=== PATIENT | male | born 1980 | race Caucasian/White ===

== ENCOUNTER 2017-12-17 18:46 | Inpatient (IN) | payer MEDICAID ==
[2017-12-17] VITALS (7 sets, daily range): BP systolic 68–141; BP diastolic 42–88; PULSE 80–102; RESP 14–19; TEMP 98.2; O2SAT 90–100
[~2017-12-17] VITALS: Ht 157.5 cm; Wt 68.0 kg
[~2017-12-17 18:46] MED LIST: CEPH500C3 PO; DEXAMETHASONE SOD PHOS 4 MG/ML VIAL IV ONE; KETOROLAC TROMETHAMINE 30 MG/ML (IVP) VIAL IV PUSH ONE; LACTATED RINGER'S 1000 ML INJ 1,000 ML IV ONE; LIDOCAINE HCL 1% PF 5 ML SYRINGE OTHER ONE; LORT7.5T3 PO; ONDANSETRON HCL 4 MG/2 ML VIAL IV ONE; PHENYLEPH/NS 1000 MCG/10 ML SYR IV ONE; PROPOFOL 200 MG/20 ML AMP IV ONE; SUCCINYLCHOLINE CHLORIDE 100 MG/5 ML SYRINGE IV PUSH ONE; TYLE3 PO; Z.0.NO CURRENT MEDS; hydrALAZINE HCL 20 MG/ML VIAL IV ONE
[2017-12-17] MEDS: TETANUS/DIPHTHERIA TOXOID ADULT 0.5 ML VIAL IM ONE (19:15)
[2017-12-17] MEDS: ceFAZolin 2 GM PREMIX 50 ML IV ONE (19:15)
[2017-12-17] MEDS ORDERED: HYDROmorphone HCL PF 2 MG/ML VIAL IV PUSH ONE (19:15)
--- NOTE | 2017-12-17 19:23 | PD ---
HPI Chief Complaint: Trauma (Alert) Time Seen by Provider: 18:56 Travel History International Travel<30 days: No Contact w/Intl Traveler<30days: No History of Present Illness HPI The patient's 37 years old and arrives by private vehicle. He fell while walking across street. At that time he evidently broke his left ankle. He was found by passersby loaded into a truck and brought here. He reports severe pain in the left leg. The pain is constant and worse with any movement. He denies loss of consciousness. He reports drinking alcohol after the fall which happened about 1 hour prior to ER arrival. Additionally, pt complains of "I'm going to pass out. Here I go." PFSH Past Medical History Diminished Hearing: No Social History Alcohol Use: No Tobacco Use: Yes (1 PPD) Substance Use: No Allergies-Medications (Allergen,Severity, Reaction): Coded Allergies: No Known Allergies (Verified Allergy, Unknown, 05/15/08) Reported Meds & Prescriptions Reported Meds & Active Scripts Active Tylenol #3 (Acetaminophen/Codeine Phosphate) 300 Mg/30 Mg Tab 1 Tab PO Q6HPRN Lortab 7.5/500 (Acetaminophen/Hydrocodone Bitart) Tab 1 Tab PO Q6HPRN Keflex (Cephalexin Monohydrate) 500 Mg Cap 500 Mg PO QID Reported No Current Meds (Miscellaneous Medication) Misc Review of Systems Except as stated in HPI: all other systems reviewed are Neg General / Constitutional: No: Fever, Chills Physical Exam Narrative GENERAL: 37 yo M, moderate distress 2/2 pain and/or anxiety, EtOH on breath HR 60-70, BP 65/40 SKIN: Warm and dry. Anterior lower leg laceration approx 5cm horizontal/linear. HEAD: Atraumatic. Normocephalic. EYES: Pupils equal and round. No scleral icterus. No injection or drainage. ENT: No nasal bleeding or discharge. Mucous membranes pink and moist. NECK: Trachea midline. No JVD. CARDIOVASCULAR: Heart rate about 80. Regular rhythm. RESPIRATORY: The lungs are clear. No dyspnea or tachypnea. GASTROINTESTINAL: Abdomen is soft. There is no focus of tenderness. There is no external evidence of trauma. MUSCULOSKELETAL: . Anterior lower leg laceration approx 5cm horizontal/linear consistent with open tib-fib fracture. There is some posterior angulation of the ankle and foot. 2+ dorsalis pedis. Patient can wiggle toes on the left side. Bilateral upper extremities normal. Right lower extremity normal. NEUROLOGICAL: Awake and alert. No obvious cranial nerve deficits. Motor grossly within normal limits. Five out of 5 muscle strength in the arms and legs. Normal speech. PSYCHIATRIC: Appropriate mood and affect; insight and judgment normal. Data Data Orders Orders Type And Screen (12/17/17 18:58) Hydromorphone Pf Inj (Dilaudid Pf Inj) (12/17/17 19:15) Cefazolin 2 Gm Premix (Ancef 2 Gm Premix (12/17/17 19:15) Tetanus/Diphtheria Tox Adult (Tetanus/Di (12/17/17 19:15) MDM Medical Decision Making Medical Screen Exam Complete: Yes Emergency Medical Condition: Yes Medical Record Reviewed: Yes Differential Diagnosis ICH, skull/skull base fx, c-spine fx, facial bone fracture, MARCE, PTX, aorta injury, diaphragm rupture, pelvis fracture, intraperitoneal hemorrhage, solid organ injury, retroperitoneal hemorrhage, long bone fracture, open fracture Narrative Course 29-year-old male arrives with an open tib-fib fracture left side hypotension 67/ 40. The heart rate at that time was about 70. The patient received a liter of normal saline. One unit emergency release PRBCs hung. The left lower extremity gross deformity was immobilized with a Quispe splint. Blood pressure gradually improved to about 120/80 in the ER. The pulse increased to the 90s. The patient received 0.5 mg hydromorphone, Ancef and tetanus. Discussed with trauma surgeons Dr Garrido and Chris. Case d/w Dr Oliver. The patient will go to the main site as a trauma alert for further diagnostic and therapeutic intervention there. He is hemodynamically stable at time of transfer from here with a blood pressure 120/80 with a HR 82. FAST exam revealed no obvious intraperitoneal blood. Diagnosis Primary Impression: Fall Qualified Codes: W19.XXXA - Unspecified fall, initial encounter Additional Impressions: Hypotension Qualified Codes: I95.9 - Hypotension, unspecified Fracture of tibia with fibula, left, open Qualified Codes: S82.202C - Unspecified fracture of shaft of left tibia, initial encounter for open fracture type IIIA, IIIB, or IIIC; S82.402C - Unspecified fracture of shaft of left fibula, initial encounter for open fracture type IIIA, IIIB, or IIIC Ryder Gan MD Dec 17, 2017 19:23
[2017-12-17] MEDS ORDERED: SODIUM CHLOR 0.9% 1000 ML INJ 1,000 ML IV SCH (19:26)
[2017-12-17] MEDS ORDERED: SODIUM CHLORIDE 0.9% FLUSH 10 ML FLUSH IVF PRN (19:30)
[2017-12-17 19:32] LABS: BASOPHIL # 0.1 TH/MM3 (0-0.2); EOSINOPHIL # 0.8 TH/MM3 (0-0.4); EOSINOPHIL % 5.6 % (0.0-4.0); HEMATOCRIT 45.9 % (39.0-51.0); HEMOGLOBIN 15.6 GM/DL (13.0-17.0); LYMPH % 38.6 % (9.0-44.0); LYMPHOCYTE # 5.7 TH/MM3 (1.0-4.8); MEAN CELL VOLUME 94.3 FL (80.0-100.0); MEAN PLATELET VOLUME 7.7 FL (7.0-11.0); MONO % 7.8 % (0.0-8.0); MONOCYTE # 1.1 TH/MM3 (0-0.9); PLATELET COUNT 303 TH/MM3 (150-450); RED BLOOD COUNT 4.87 MIL/MM3 (4.50-5.90); RED CELL DISTRIBUTION WIDTH 11.7 % (11.6-17.2); WHITE BLOOD COUNT 14.7 TH/MM3 (4.0-11.0)
[2017-12-17 19:39] LABS: BICARBONATE 18.4 MEQ/L (21.0-32.0); CALCIUM 8.2 MG/DL (8.5-10.1)
[2017-12-17 19:41] LABS: INTERNATIONAL NORMALIZED RATIO 1.1 RATIO; PROTHROMBIN TIME - PATIENT 10.7 SEC (9.8-11.6)
[2017-12-17 19:43] LABS: CREATININE 1.2 MG/DL (0.60-1.30)
--- NOTE | 2017-12-17 20:02 | RADRPT ---
EXAM DATE/TIME: 12/17/2017 19:50 [facility] COMPARISON: No previous studies available for comparison. INDICATIONS : Trauma alert, fall. RADIATION DOSE: 56.35 CTDIvol (mGy) MEDICAL HISTORY : None SURGICAL HISTORY : Umbilical hernia repair. ENCOUNTER: Initial ACUITY: 1 day PAIN SCALE: 0/10 LOCATION: cranial TECHNIQUE: Multiple contiguous axial images were obtained of the head. Using automated exposure control and adj ustment of the mA and/or kV according to patient size, radiation dose was kept as low as reasonably a chievable to obtain optimal diagnostic quality images. DICOM format image data is available electro nically for review and comparison. FINDINGS: CEREBRUM: The ventricles are normal for age. No evidence of midline shift, mass lesion, hemorrhage or acute in farction. No extra-axial fluid collections are seen. POSTERIOR FOSSA: The cerebellum and brainstem are intact. The 4th ventricle is midline. The cerebellopontine angle i s unremarkable. EXTRACRANIAL: The visualized portion of the orbits is intact. There is mucosal thickening and partial opacification of the ethmoid air cells and maxillary sinuses and frontal sinus. SKULL: The calvaria is intact. No evidence of skull fracture. CONCLUSION: 1. No acute intracranial abnormalities. Paranasal sinus disease. Garo Foreman MD on December 17, 2017 at 19:57 Board Certified Radiologist. This report was verified electronically.
--- NOTE | 2017-12-17 20:04 | RADRPT ---
EXAM DATE/TIME: 12/17/2017 19:50 [facility] COMPARISON: No previous studies available for comparison. INDICATIONS : Trauma alert, fall. RADIATION DOSE: 21.96 CTDIvol (mGy) MEDICAL HISTORY : None SURGICAL HISTORY : None. ENCOUNTER: Initial ACUITY: 1 day PAIN SCORE: 0/10 LOCATION: facial TECHNIQUE: Volumetric scanning of the facial bones was performed. Using automated exposure control and adjustme nt of the mA and/or kV according to patient size, radiation dose was kept as low as reasonably achiev able to obtain optimal diagnostic quality images. DICOM format image data is available electronicall y for review and comparison. FINDINGS: ORBITS: The orbital and infraorbital osseous structures are intact. The retroconal structures have a normal configuration. No radiopaque foreign bodies are seen. NASAL BONE: The nasal bone and maxillary spine are intact ZYGOMATIC ARCHES: Symmetric without evidence of fracture. SINUSES: There is pansinus mucosal thickening and partial opacification of the maxillary sinuses and ethmoid a ir cells. NASAL CAVITY: The nasal septum is intact and midline. The lacrimal ducts are intact. SOFT TISSUES: No radiopaque foreign bodies seen. No soft-tissue swelling is seen. INTRACRANIAL: No intracranial air seen. CRIBIFORM PLATE: Grossly intact. CONCLUSION: 1. Pansinus mucosal thickening with partial opacification of the ethmoids and maxillary sinuses. Garo Foreman MD on December 17, 2017 at 19:59 Board Certified Radiologist. This report was verified electronically.
[2017-12-17] MEDS ORDERED: IOHEXOL 350 MG/ML 10 ML VIAL (for RAD DIAG) IVCONTRAST ONE (20:06)
--- NOTE | 2017-12-17 20:08 | RADRPT ---
EXAM DATE/TIME: 12/17/2017 19:50 [facility] COMPARISON: No previous studies available for comparison. INDICATIONS : Trauma alert, fall. RADIATION DOSE: 18.53 CTDIvol (mGy) MEDICAL HISTORY : None SURGICAL HISTORY : None. ENCOUNTER: Initial ACUITY: 1 day PAIN SCALE: 0/10 LOCATION: neck TECHNIQUE: Volumetric scanning of the cervical spine was performed. Multiplanar reconstructions in the sagittal, coronal and oblique axial planes were performed. Using automated exposure control and adjustment o f the mA and/or kV according to patient size, radiation dose was kept as low as reasonably achievable to obtain optimal diagnostic quality images. DICOM format image data is available electronically f or review and comparison. FINDINGS: VERTEBRAE: Normal vertebral body height. ALIGNMENT: No evidence of subluxation. C2-C3: The bony spinal canal is normal in size. No evidence of disc bulge or herniation. The neural forami na are bilaterally patent. C3-C4: The bony spinal canal is normal in size. No evidence of disc bulge or herniation. The neural forami na are bilaterally patent. C4-C5: The bony spinal canal is normal in size. No evidence of disc bulge or herniation. The neural forami na are bilaterally patent. C5-C6: The bony spinal canal is normal in size. No evidence of disc bulge or herniation. The neural forami na are bilaterally patent. C6-C7: The bony spinal canal is normal in size. No evidence of disc bulge or herniation. The neural forami na are bilaterally patent. C7-T1: The bony spinal canal is normal in size. No evidence of disc bulge or herniation. The neural forami na are bilaterally patent. CONCLUSION: Normal examination for a patient of this age. Garo Foreman MD on December 17, 2017 at 20:03 Board Certified Radiologist. This report was verified electronically.
--- NOTE | 2017-12-17 20:09 | RADRPT ---
EXAM DATE/TIME: 12/17/2017 19:38 [facility] COMPARISON: No previous studies available for comparison. INDICATIONS : Trauma alert. MEDICAL HISTORY : Unobtainable. SURGICAL HISTORY : Unobtainable. ENCOUNTER: Initial ACUITY: 1 day PAIN SCORE: Non-responsive. LOCATION: Left ankle FINDINGS: There is a severely comminuted fracture of the distal tibia and a distal fibular comminuted fracture. Fractures extend intra-articularly at the ankle joint. There is also mildly displaced posterior calc aneus fracture. There is no dislocation. CONCLUSION: 1. Common intra-articular mildly displaced fractures of the distal tibia and fibula without dislocati on. Mildly displaced fracture posterior calcaneus. Garo Foreman MD on December 17, 2017 at 20:06 Board Certified Radiologist. This report was verified electronically.
--- NOTE | 2017-12-17 20:10 | RADRPT ---
EXAM DATE/TIME: 12/17/2017 19:38 [facility] COMPARISON: No previous studies available for comparison. INDICATIONS : Trauma alert. MEDICAL HISTORY : Unobtainable. SURGICAL HISTORY : Unobtainable. ENCOUNTER: Initial ACUITY: 1 day PAIN SCORE: Non-responsive. LOCATION: pelvis FINDINGS: A single frontal view of the pelvis demonstrates no evidence of fracture. The bony pelvic ring is in tact. Bony mineralization is normal. The soft tissues are intact. CONCLUSION: Normal examination for a patient of this age. Garo Foreman MD on December 17, 2017 at 20:07 Board Certified Radiologist. This report was verified electronically.
--- NOTE | 2017-12-17 20:10 | RADRPT ---
EXAM DATE/TIME: 12/17/2017 19:38 [facility] COMPARISON: No previous studies available for comparison. INDICATIONS : Trauma alert. MEDICAL HISTORY : Unobtainable. SURGICAL HISTORY : Unobtainable. ENCOUNTER: Initial ACUITY: 1 day PAIN SCORE: Non-responsive. LOCATION: Bilateral chest FINDINGS: A single view of the chest demonstrates the lungs to be symmetrically aerated without evidence of mas s, infiltrate or effusion. The cardiomediastinal contours are unremarkable. Osseous structures are intact. CONCLUSION: No acute disease. Garo Foreman MD on December 17, 2017 at 20:08 Board Certified Radiologist. This report was verified electronically.
--- NOTE | 2017-12-17 20:22 | RADRPT ---
EXAM DATE/TIME: 12/17/2017 19:57 [facility] COMPARISON: No previous studies available for comparison. INDICATIONS : Trauma alert, fall. IV CONTRAST: 100 cc Omnipaque 350 (iohexol) IV ; Cumulative dose for multiple exams. RADIATION DOSE: 5.27 CTDIvol (mGy) ; Combined studies - Thorax/Abdomen/Pelvis MEDICAL HISTORY : None SURGICAL HISTORY : None. ENCOUNTER: Initial ACUITY: 1 day PAIN SCALE: 3/10 LOCATION: chest TECHNIQUE: Volumetric scanning of the chest was performed. Using automated exposure control and adjustment of t he mA and/or kV according to patient size, radiation dose was kept as low as reasonably achievable to obtain optimal diagnostic quality images. DICOM format image data is available electronically for review and comparison. Follow-up recommendations for detected pulmonary nodules are based at a minimum on nodule size and pa tient risk factors according to Fleischner Society Guidelines. FINDINGS: LUNGS: There is no consolidation or pneumothorax. Multiple tiny 3 mm or less nodules likely postinflammatory . PLEURA: There is no pleural thickening or pleural effusion. MEDIASTINUM: The heart and great vessels demonstrate no acute abnormality. There is no mediastinal or hilar lymph adenopathy. AXILLAE: Within normal limits. No lymphadenopathy. SKELETAL: Within normal limits for patient age. MISCELLANEOUS: The visualized upper abdominal organs demonstrate no acute abnormality. CONCLUSION: 1. Negative for acute traumatic injury within the thorax. Scattered post inflammatory changes in the lungs with several tiny sub-3 mm nodules. Garo Foreman MD on December 17, 2017 at 20:08 Board Certified Radiologist. This report was verified electronically.
--- NOTE | 2017-12-17 20:32 | RADRPT ---
EXAM DATE/TIME: 12/17/2017 19:57 [facility] COMPARISON: No previous studies available for comparison. INDICATIONS : Trauma alert, fall. IV CONTRAST: 100 cc Omnipaque 350 (iohexol) IV ; Cumulative dose for multiple exams. ORAL CONTRAST: No oral contrast ingested. RADIATION DOSE: 5.27 CTDIvol (mGy) ; Combined studies - Thorax/Abdomen/Pelvis MEDICAL HISTORY : None SURGICAL HISTORY : None. ENCOUNTER: Initial ACUITY: 1 day PAIN SCALE: 4/10 LOCATION: Abdomen. TECHNIQUE: Volumetric scanning of the abdomen and pelvis was performed. Using automated exposure control and ad justment of the mA and/or kV according to patient size, radiation dose was kept as low as reasonably achievable to obtain optimal diagnostic quality images. DICOM format image data is available electro nically for review and comparison. FINDINGS: LOWER LUNGS: Minimal dependent atelectasis in the lungs. LIVER: Homogeneous density without lesion. There is no dilation of the biliary tree. No calcified gallston es. SPLEEN: Normal size without lesion. PANCREAS: Within normal limits. KIDNEYS: Normal in size and shape. There is no mass, stone or hydronephrosis. ADRENAL GLANDS: Within normal limits. VASCULAR: There is no aortic aneurysm. BOWEL/MESENTERY: The stomach, small bowel, and colon demonstrate no acute abnormality. There is no free intraperitone al air or fluid. ABDOMINAL WALL: Within normal limits. RETROPERITONEUM: There is no lymphadenopathy. BLADDER: No wall thickening or mass. REPRODUCTIVE: Within normal limits. INGUINAL: There is no lymphadenopathy or hernia. MUSCULOSKELETAL: Within normal limits for patient age. CONCLUSION: Negative for acute traumatic injury within the abdomen and pelvis. Garo Foreman MD on December 17, 2017 at 20:25 Board Certified Radiologist. This report was verified electronically.
--- NOTE | 2017-12-17 20:40 | HHI.HP ---
[facility] Service Critical Care Medicine Primary Care Physician No Primary Care Physician Admission Diagnosis trauma open tib fib Diagnosis: Chief Complaint: Left leg pain Travel History International Travel<30 Days: No Contact w/Intl Traveler <30 Da: No Traveled to Known Affected Are: No History of Present Illness 37-year-old gentleman who states he fell approximately 5 feet onto his left leg. He was evaluated at an outside hospital and transferred emergently to [facility] for hypotension with a systolic of 60. He was intoxicated. Patient arrived normotensive and underwent full trauma workup. He was found to have an open left distal tibia/fibula fracture with an associated calcaneal fracture. No other injuries were identified Review of Systems Constitutional: DENIES: Diaphoretic episodes, Fatigue, Fever, Weight gain, Weight loss, Chills, Dizziness, Change in appetite, Night Sweats Endocrine: DENIES: Heat/cold intolerance, Polydipsia, Polyuria, Polyphagia Eyes: DENIES: Blurred vision, Diplopia, Eye inflammation, Eye pain, Vision loss , Photosensitivity, Double Vision Ears, nose, mouth, throat: DENIES: Tinnitus, Hearing loss, Vertigo, Nasal discharge, Oral lesions, Throat pain, Hoarseness, Ear Pain, Running Nose, Epistaxis, Sinus Pain, Toothache, Odynophagia Respiratory: DENIES: Apneas, Cough, Snoring, Wheezing, Hemoptysis, Sputum production, Shortness of breath Cardiovascular: DENIES: Chest pain, Palpitations, Syncope, Dyspnea on Exertion , PND, Lower Extremity Edema, Orthopnea, Claudication Gastrointestinal: DENIES: Abdominal pain, Black stools, Bloody stools, Constipation, Diarrhea, Nausea, Vomiting, Difficulty Swallowing, Anorexia Genitourinary: DENIES: Sexual dysfunction, Urinary frequency, Urinary incontinence, Urgency, Hematuria, Dysuria, Nocturia, Penile Discharge, Testicular Pain, Testicular Swelling Musculoskeletal: COMPLAINS OF: Joint pain (Left ankle) Integumentary: COMPLAINS OF: Rash (Abrasion to the left forearm) Hematologic/lymphatic: DENIES: Bruising, Lymphadenopathy Immunologic/allergic: DENIES: Eczema, Urticaria Neurologic: DENIES: Abnormal gait, Headache, Localized weakness, Paresthesias, Seizures, Speech Problems, Tremor, Poor Balance Psychiatric: DENIES: Anxiety, Confusion, Mood changes, Depression, Hallucinations, Agitation, Suicidal Ideation, Homicidal Ideation, Delusions Past Family Social History Allergies: Coded Allergies: No Known Allergies (Verified Allergy, Unknown, 05/15/08) Past Medical History Patient denies any significant past medical history Past Surgical History Patient denies any significant past surgical history Reported Medications None reported Family History Reviewed and not relevant Social History Patient does drink alcohol and smokes denies illegal drug use Physical Exam Vital Signs Vital Signs Date Time Temp Pulse Resp B/P (MAP) Pulse Ox O2 Delivery O2 Flow Rate FiO2 12/17/17 20:25 98 Nasal Cannula 2.00 12/17/17 20:25 16 98 Nasal Cannula 2.00 Physical Exam Alert and oriented no acute distress Head is atraumatic normocephalic pupils equal reactive to light extraocular movement intact sclera nonicteric conjunctiva pink Neck soft trachea midline no cervical tenderness to palpation Lungs clear to auscultation bilaterally, no crepitus to chest wall palpation Heart regular rate and rhythm Abdomen soft nontender nondistended Pelvis is stable and nontender, femoral pulses palpable bilaterally Left lower extremity has been splinted I am told there is an open fracture with good pulses, no clubbing cyanosis or edema and palpable right lower extremity pulses Mood and affect are appropriate Cranial nerves II through XII appear grossly intact there is no focal neurologic deficit Skin is edgar with superficial abrasions all along the dorsum of the left upper extremity Laboratory Laboratory Tests Test 12/17/17 18:55 White Blood Count 14.7 Red Blood Count 4.87 Hemoglobin 15.6 Hematocrit 45.9 Mean Corpuscular Volume 94.3 Mean Corpuscular Hemoglobin 32.0 Mean Corpuscular Hemoglobin Concent 34.0 Red Cell Distribution Width 11.7 Platelet Count 303 Mean Platelet Volume 7.7 Neutrophils (%) (Auto) 47.0 Lymphocytes (%) (Auto) 38.6 Monocytes (%) (Auto) 7.8 Eosinophils (%) (Auto) 5.6 Basophils (%) (Auto) 1.0 Neutrophils # (Auto) 7.0 Lymphocytes # (Auto) 5.7 Monocytes # (Auto) 1.1 Eosinophils # (Auto) 0.8 Basophils # (Auto) 0.1 CBC Comment DIFF FINAL Differential Comment Prothrombin Time 10.7 Prothromb Time International Ratio 1.1 Activated Partial Thromboplast Time 24.5 Blood Urea Nitrogen 7 Creatinine 1.20 Random Glucose 125 Calcium Level 8.2 Sodium Level 130 Potassium Level 3.2 Chloride Level 95 Carbon Dioxide Level 18.4 Anion Gap 17 Estimat Glomerular Filtration Rate 68 Ethyl Alcohol Level 181 Result Diagram: 12/17/175 12/17/171854 Imaging Last Impressions Pelvis X-Ray 12/17/171946 Signed Impressions: Service Date/Time: December 19:38 - CONCLUSION: Normal examination for a patient of this age. Garo Foreman MD Maxillofacial CT 12/17/171946 Signed Impressions: Service Date/Time: December 19:50 - CONCLUSION: 1. Pansinus mucosal thickening with partial opacification of the ethmoids and maxillary sinuses. Garo Foreman MD Head CT 12/17/171946 Signed Impressions: Service Date/Time: December 19:50 - CONCLUSION: 1. No acute intracranial abnormalities. Paranasal sinus disease. Garo Foreman MD Chest X-Ray 12/17/171946 Signed Impressions: Service Date/Time: December 19:38 - CONCLUSION: No acute disease. Garo Foreman MD Chest CT 12/17/171946 Signed Impressions: Service Date/Time: December 19:57 - CONCLUSION: 1. Negative for acute traumatic injury within the thorax. Scattered post inflammatory changes in the lungs with several tiny sub-3 mm nodules. Garo Foreman MD Cervical Spine CT 12/17/171946 Signed Impressions: Service Date/Time: December 19:50 - CONCLUSION: Normal examination for a patient of this age. Garo Foreman MD Ankle X-Ray 12/17/17 0000 Signed Impressions: Service Date/Time: December 19:38 - CONCLUSION: 1. Common intra-articular mildly displaced fractures of the distal tibia and fibula without dislocation. Mildly displaced fracture posterior calcaneus. Garo Foreman MD Caprini VTE Risk Assessment Caprini VTE Risk Assessment: Mod/High Risk (score >= 2) Caprini Risk Assessment Model Point Value = 1 Point Value = 2 Point Value = 3 Point Value = 5 Age 41-60 Minor surgery BMI > 25 kg/m2 Swollen legs Varicose veins or History of unexplained or recurrent spontaneous Oral contraceptives or hormone replacement Sepsis (< 1 month) Serious lung disease, including pneumonia (< 1 month) Abnormal pulmonary function Acute myocardial infarction Congestive heart failure (< 1 month) History of inflammatory bowel disease Medical patient at bed rest Age 61-74 Arthroscopic surgery Major open surgery (> 45 min) Laparoscopic surgery (> 45 min) Malignancy Confined to bed (> 72 hours) Immobilizing plaster cast Central venous access Age >= 75 History of VTE Family history of VTE Factor V Leiden Prothrombin [id number] Lupus anticoagulant Anticardiolipin antibodies Elevated serum homocysteine Heparin-induced thrombocytopenia Other congenital or acquired thrombophilia Stroke (< 1 month) Elective arthroplasty Hip, pelvis, or leg fracture Acute spinal cord injury (< 1 month) Prophylaxis Regimen Total Risk Factor Score Risk Level Prophylaxis Regimen 0-1 Low Early ambulation 2 Moderate Order ONE of the following: *Sequential Compression Device (SCD) *Heparin 5000 units SQ BID 3-4 Higher Order ONE of the following medications: *Heparin 5000 units SQ TID *Enoxaparin/Lovenox 40 mg SQ daily (WT < 150 kg, CrCl > 30 mL/min) *Enoxaparin/Lovenox 30 mg SQ daily (WT < 150 kg, CrCl > 10-29 mL/min) *Enoxaparin/Lovenox 30 mg SQ BID (WT < 150 kg, CrCl > 30 mL/min) AND/OR *Sequential Compression Device (SCD) 5 or more Highest Order ONE of the following medications: *Heparin 5000 units SQ TID (Preferred with Epidurals) *Enoxaparin/Lovenox 40 mg SQ daily (WT < 150 kg, CrCl > 30 mL/min) *Enoxaparin/Lovenox 30 mg SQ daily (WT < 150 kg, CrCl > 10-29 mL/min) *Enoxaparin/Lovenox 30 mg SQ BID (WT < 150 kg, CrCl > 30 mL/min) AND *Sequential Compression Device (SCD) Assessment and Plan Assessment and Plan Open left ankle fracture, calcaneal fracture -Admit to trauma service for pain control and pulmonary toilet -Ancef and gent were given and will be scheduled for the open fracture -Orthopedic surgery was consulted to assist with fracture care Liborio Garrido MD Dec 17, 2017 20:40
[2017-12-17] MEDS ORDERED: CHLORHEXIDINE GLUCONATE 2 % 1 PACK (2 CLOTHS) TOP PRN (20:45)
[2017-12-17] MEDS ORDERED: GENTAMICIN 80 MG PREMIX 100 ML IV ONE (20:45)
[2017-12-17] MEDS ORDERED: MISCELLANEOUS NURSING INFORMATION XX SCH (20:45)
[2017-12-17] MEDS ORDERED: SODIUM CHLORIDE 0.9% FLUSH 10 ML FLUSH IV FLUSH PRN (20:45)
[2017-12-17] MEDS ORDERED: MAGNESIUM HYDROXIDE SUSP 30 ML CUP PO PRN ×2 (20:45→23:30)
[2017-12-17] MEDS ORDERED: ONDANSETRON HCL 4 MG/2 ML VIAL IV PUSH PRN (20:45)
[2017-12-17] MEDS: DOCUSATE SODIUM 100 MG CAP PO SCH (21:00)
[2017-12-17] MEDS ORDERED: LACTATED RINGER'S 1000 ML INJ 1,000 ML IV SCH (21:00)
[2017-12-17] MEDS ORDERED: GENTAMICIN 80 MG PREMIX 100 ML ONE (21:06)
[2017-12-17] MEDS ORDERED: MORPHINE SULFATE 2 MG/ML SYRINGE IV PRN (21:15)
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
[2017-12-17] MEDS ORDERED: ACETAMINOPHEN 1000 MG/100 ML 100 ML IV ONE (21:28)
[2017-12-17] MEDS ORDERED: MIDAZOLAM HCL 2 MG/2 ML VIAL ONE (21:28)
[2017-12-17] MEDS ORDERED: FAMOTIDINE 20 MG/2 ML VIAL ONE (21:28)
[2017-12-17] MEDS ORDERED: ceFAZolin INJ 1,000 MG VIAL ONE (21:29)
[2017-12-17] MEDS ORDERED: GENTAMICIN SULFATE 80 MG/2 ML VIAL ONE (21:29)
[2017-12-17] MEDS ORDERED: VANCOMYCIN HCL 1000 MG VIAL ONE (21:29)
[2017-12-17] MEDS ORDERED: ENOXAPARIN SODIUM 30 MG/0.3 ML SYRINGE SQ SCH (22:00)
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
[2017-12-17] MEDS ORDERED: Post-op Orders (for Pharmacy) XX ONE (23:30)
[2017-12-17] MEDS ORDERED: SENNOSIDES 8.6 MG TAB PO PRN (23:30)
[2017-12-17] MEDS ORDERED: oxyCODONE/ACETAMINOPHEN 5 MG/325 MG TAB PO PRN (23:30)
[2017-12-17] MEDS ORDERED: PROMETHAZINE HCL 25 MG TAB PO PRN (23:30)
[2017-12-17] MEDS ORDERED: MORPHINE SULFATE 8 MG/ML INJ IV PUSH PRN (23:30)
[2017-12-17] MEDS ORDERED: ZOLPIDEM TARTRATE 5 MG TAB PO PRN (23:30)
[2017-12-17] MEDS ORDERED: LACTULOSE SYRUP 20 GM/30 ML CUP PO PRN (23:30)
[2017-12-17] MEDS ORDERED: BISACODYL 10 MG SUPP RECTAL PRN (23:30)
[2017-12-17] MEDS ORDERED: DO NOT ADM ANY ANTICOAGULANT DRUGS PRN (23:45)
[2017-12-18 00:30] VITALS: BP 156/91; PULSE 93; RESP 17; TEMP 97.4; O2SAT 99
[2017-12-18] MEDS: oxyCODONE/ACETAMINOPHEN 5 MG/325 MG TAB PO PRN ×2 (01:39→05:33)
[2017-12-18] MEDS: KETOROLAC TROMETHAMINE 30 MG/ML (IVP) VIAL IVP SCH ×6 (01:39→23:30)
[2017-12-18] MEDS: VANCOMYCIN INJ 1,000 MG in SODIUM CHLOR 0.9% 250 ML INJ 250 ML IV SCH ×2 (01:42→16:21)
[2017-12-18] MEDS: MULTIVITAMIN INJ 10 ML, THIAMINE INJ 100 MG, FOLIC ACID INJ 1 MG in SODIUM CHLORID 0.9%... IV SCH (01:42)
[2017-12-18 03:53] LABS: ALBUMIN 3.7 GM/DL (3.4-5.0)
[2017-12-18 03:58] LABS: TOTAL BILIRUBIN ADULT 0.7 MG/DL (0.2-1.0); TOTAL PROTEIN 7.2 GM/DL (6.4-8.2)
[2017-12-18] MEDS: CHLORHEXIDINE GLUCONATE 2 % 1 PACK (2 CLOTHS) TOP SCH (04:00)
[2017-12-18 04:09] LABS: DIRECT BILIRUBIN ADULT 0.1 MG/DL (0.0-0.2); INDIRECT BILIRUBIN 0.6 MG/DL (0.0-0.8)
[2017-12-18 04:40] VITALS: BP 134/71; PULSE 90; RESP 17; TEMP 97.2; O2SAT 98
[2017-12-18] MEDS ORDERED: GENTAMICIN INJ 80 MG in SODIUM CHLORIDE 0.9% INJ 100 ML IV SCH (05:00)
[2017-12-18] MEDS ORDERED: GENTAMICIN SULFATE 80 MG/2 ML VIAL IM SCH (05:00)
[2017-12-18] MEDS ORDERED: oxyCODONE/ACETAMINOPHEN 10 MG/325 MG TAB PO PRN (06:00)
[2017-12-18 07:23] LABS: AUTOMATED NEUTROPHIL # 12.6 TH/MM3 (1.8-7.7); BASOPHIL % 0.3 % (0.0-2.0); HEMATOCRIT 42.7 % (39.0-51.0); HEMOGLOBIN 14.8 GM/DL (13.0-17.0); LYMPH % 5.3 % (9.0-44.0); LYMPHOCYTE # 0.7 TH/MM3 (1.0-4.8); MEAN CELL VOLUME 92.6 FL (80.0-100.0); MEAN CORPUSCULAR HEMOGLOBIN 32.1 PG (27.0-34.0); MEAN CORPUSCULAR HGB CONC 34.7 % (32.0-36.0); MEAN PLATELET VOLUME 8.1 FL (7.0-11.0); MONO % 3.2 % (0.0-8.0); MONOCYTE # 0.4 TH/MM3 (0-0.9); NEUT % 91.2 % (16.0-70.0); PLATELET COUNT 213 TH/MM3 (150-450); RED BLOOD COUNT 4.62 MIL/MM3 (4.50-5.90); RED CELL DISTRIBUTION WIDTH 13.7 % (11.6-17.2); WHITE BLOOD COUNT 13.8 TH/MM3 (4.0-11.0)
[2017-12-18 07:38] VITALS: BP 133/83; PULSE 83; RESP 18; TEMP 97.5; O2SAT 97
[2017-12-18 07:42] LABS: CALCIUM 7.7 MG/DL (8.5-10.1); CREATININE 0.97 MG/DL (0.60-1.30)
--- NOTE | 2017-12-18 08:08 | PD.ORT.PN ---
Subjective Subjective Remarks POD 1 s/p I&D with wound closure and exfix left distal tibia doing well. reports pain controlled. resting comfortably Objective Vitals Vital Signs Date Time Temp Pulse Resp B/P (MAP) Pulse Ox O2 Delivery O2 Flow Rate FiO2 12/18/17 07:38 97.5 83 18 133/83 (100) 97 12/18/17 04:40 97.2 90 17 134/71 (92) 98 12/18/17 00:30 97.4 93 17 156/91 (112) 99 12/18/17 00:14 92 18 136/92 (107) 97 Nasal Cannula 4 12/18/17 00:00 93 20 146/93 (110) 97 Nasal Cannula 4 12/17/17 23:45 98 16 139/92 (108) 94 Nasal Cannula 4 12/17/17 23:25 97.4 111 20 137/92 (107) 97 Nasal Cannula 4 12/17/17 21:31 12/17/17 21:00 88 19 141/88 (105) 98 Nasal Cannula 2.00 12/17/17 20:25 97 12.00 12/17/17 20:25 98 Nasal Cannula 2.00 12/17/17 20:25 97 Non-Rebreather 12.00 12/17/17 20:25 16 98 Nasal Cannula 2.00 12/17/17 19:37 100 2.00 12/17/17 19:15 80 16 123/79 (94) 12/17/17 19:10 124/88 (100) 12/17/17 19:05 102 16 89/66 (74) 99 Non-Rebreather 12/17/17 18:55 102 14 69/42 (51) 90 Room Air 12/17/17 18:55 98.2 101 14 68/52 (57) 90 I/O 12/17/17 12/17/17 12/17/17 12/18/17 12/18/17 12/18/17 07:00 15:00 23:00 07:00 15:00 23:00 Intake Total 1240 ml Output Total 2250 ml Balance -1010 ml Intake Oral 240 ml Other 1000 ml Output Urine Total 2200 ml Estimated Blood Loss 50 ml # Bowel Movements 0 Result Diagram: 12/18/17 0640 12/18/17 0640 Other Results Laboratory Tests Test 12/17/17 18:55 Prothromb Time International Ratio 1.1 RATIO Prothrombin Time 10.7 SEC (9.8-11.6) Imaging Last 24 hours Impressions Pelvis X-Ray 12/17/171946 Signed Impressions: Service Date/Time: December 19:38 - CONCLUSION: Normal examination for a patient of this age. Garo Foreman MD Maxillofacial CT 12/17/171946 Signed Impressions: Service Date/Time: December 19:50 - CONCLUSION: 1. Pansinus mucosal thickening with partial opacification of the ethmoids and maxillary sinuses. Garo Foreman MD Head CT 12/17/171946 Signed Impressions: Service Date/Time: December 19:50 - CONCLUSION: 1. No acute intracranial abnormalities. Paranasal sinus disease. Garo Foreman MD Chest X-Ray 12/17/171946 Signed Impressions: Service Date/Time: December 19:38 - CONCLUSION: No acute disease. Garo Foreman MD Chest CT 12/17/171946 Signed Impressions: Service Date/Time: December 19:57 - CONCLUSION: 1. Negative for acute traumatic injury within the thorax. Scattered post inflammatory changes in the lungs with several tiny sub-3 mm nodules. Garo Foreman MD Cervical Spine CT 12/17/171946 Signed Impressions: Service Date/Time: December 19:50 - CONCLUSION: Normal examination for a patient of this age. Garo Foreman MD Abdomen/Pelvis CT 12/17/171946 Signed Impressions: Service Date/Time: December 19:57 - CONCLUSION: Negative for acute traumatic injury within the abdomen and pelvis. Garo Foreman MD Objective Remarks LLE: +exfix. pin sites with bloody drainage. nvi. traumatic wound with bloody drainage. tibia in extension and fracture appears to be tinting skin anteriorly. Assessment & Plan Assessment and Plan 1) Open Left distal Tibia Fx s/p I&D and exfix - POD 1 -NWB -pin care BID -sign consents -npo -plan for revision of exfix today with Kamaljit Phelan/Marketing Senior Recruiter PA Dec 18, 2017 08:08
[2017-12-18] MEDS: DOCUSATE SODIUM 100 MG CAP PO SCH ×2 (09:00→21:00)
[2017-12-18] MEDS: FAMOTIDINE 20 MG TAB PO SCH ×2 (09:00→21:53)
[2017-12-18] MEDS: DOCUSATE SODIUM 50 MG/SENNA 8.6 MG TAB PO SCH ×2 (09:00→21:00)
[2017-12-18] MEDS: BACITRACIN TOP OINT 15 GM TUBE TOP SCH ×2 (09:00→21:00)
--- NOTE | 2017-12-18 10:27 | HHI.PR ---
Subjective Subjective Notes S/P ex-fix revision today Objective Vitals/I&O Vital Signs Date Time Temp Pulse Resp B/P (MAP) Pulse Ox O2 Delivery O2 Flow Rate FiO2 12/18/17 07:38 97.5 83 18 133/83 (100) 97 12/18/17 00:14 Nasal Cannula 4 Labs Laboratory Tests Test 12/17/17 18:55 12/17/17 21:30 12/18/17 06:40 White Blood Count 14.7 13.8 Red Blood Count 4.87 4.62 Hemoglobin 15.6 14.8 Hematocrit 45.9 42.7 Mean Corpuscular Volume 94.3 92.6 Mean Corpuscular Hemoglobin 32.0 32.1 Mean Corpuscular Hemoglobin Concent 34.0 34.7 Red Cell Distribution Width 11.7 13.7 Platelet Count 303 213 Mean Platelet Volume 7.7 8.1 Neutrophils (%) (Auto) 47.0 91.2 Lymphocytes (%) (Auto) 38.6 5.3 Monocytes (%) (Auto) 7.8 3.2 Eosinophils (%) (Auto) 5.6 0.0 Basophils (%) (Auto) 1.0 0.3 Neutrophils # (Auto) 7.0 12.6 Lymphocytes # (Auto) 5.7 0.7 Monocytes # (Auto) 1.1 0.4 Eosinophils # (Auto) 0.8 0.0 Basophils # (Auto) 0.1 0.0 CBC Comment DIFF FINAL DIFF FINAL Differential Comment Prothrombin Time 10.7 Prothromb Time International Ratio 1.1 Activated Partial Thromboplast Time 24.5 Blood Urea Nitrogen 7 8 Creatinine 1.20 0.97 Random Glucose 125 151 Total Protein 7.2 Albumin 3.7 Calcium Level 8.2 7.7 Alkaline Phosphatase 75 Aspartate Amino Transf (AST/SGOT) 60 Alanine Aminotransferase (ALT/SGPT) 79 Total Bilirubin 0.7 Direct Bilirubin 0.1 Sodium Level 130 139 Potassium Level 3.2 4.3 Chloride Level 95 106 Carbon Dioxide Level 18.4 25.0 Anion Gap 17 8 Estimat Glomerular Filtration Rate 68 87 Indirect Bilirubin 0.6 Total Creatine Kinase 158 Ethyl Alcohol Level 181 Lactic Acid Level 2.9 Narrative Exam GENERAL: 37-year-old well-nourished, well developed male lying in bed. SKIN: Warm and dry. LUE road rash. HEAD: Atraumatic. Normocephalic. EYES: Pupils equal and round. No scleral icterus. ENT: No nasal bleeding or discharge. Mucous membranes pink and moist. NECK: Trachea midline. No JVD. CARDIOVASCULAR: Regular rate and rhythm. RESPIRATORY: No accessory muscle use. Lungs clear to auscultation. Breath sounds equal bilaterally. GASTROINTESTINAL: Abdomen soft, non-tender, nondistended. + BS. MUSCULOSKELETAL: Extremities without cyanosis, +1 LLE edema. LLE ex- fix with TERRA wrap. MAEW, + perfused NEUROLOGICAL: Awake and alert. Normal speech. A/P Assessment and Plan [place]: Allegedly fell from 5 feet onto his left leg. ETOH= 181. Found down by a passerby and brought to the ER. Transferred for trauma services. INJURIES: Road rash Open LEFT tib/fib fx LEFT calcaneus fx PMHx: 1 PPD smoker, ETOH use 12/17: I&D, placement of external fixation left leg Road rash Supportive care Bacitracin BID Open LEFT tib/fib fx, LEFT calcaneus fx Orthopedics consulted 12/17: I&D, placement of external fixation left leg Ex-fix revision today Pain control Bowel regimen Pin care BID ABx per Orthopedics: Haylee NWB LLE Plan of care d/w patient at bedside/ Collaborating trauma M.D. agrees with plan. Case management consulted to assist with discharge planning. Attending Statement patient seen at bedside as above ortho revision otherwise doing well Attestation The exam, history, and the medical decision-making described in the above note were completed with the assistance of the mid-level provider. I reviewed and agree with the findings presented. I attest that I had a [id number] encounter with the patient on the same day, and personally performed and documented my assessment and findings in the medical record. Jose Guaman Dec 18, 2017 10:27 Montrell Mitchell MD Dec 23, 2017 14:58
[2017-12-18] MEDS ORDERED: SUCCINYLCHOLINE CHLORIDE 200 MG/10 ML VIAL IV ONE (12:00)
[2017-12-18] MEDS ORDERED: ENOXAPARIN SODIUM 30 MG/0.3 ML SYRINGE SQ SCH (12:00)
[2017-12-18] MEDS ORDERED: ONDANSETRON HCL 4 MG/2 ML VIAL IV PUSH ONE (12:00)
[2017-12-18] MEDS ORDERED: DEXAMETHASONE SOD PHOS 4 MG/ML VIAL IV ONE (12:00)
[2017-12-18] MEDS ORDERED: PROPOFOL 200 MG/20 ML AMP IV ONE (12:00)
[2017-12-18] MEDS ORDERED: ceFAZolin INJ 1,000 MG VIAL ONE (13:12)
--- NOTE | 2017-12-18 14:00 | PD.OP ---
cc: Torsten Keita MD Operative Report Date of Surgery: Dec 18, 2017 Preoperative Diagnosis: open left distal tibia and fibula fracture Postoperative Diagnosis: Procedure: Closed reduction and revision of external fixation Anesthesia: General Surgeon: Torsten Keita Client Experience Consultant(s): MULUGETA Bautista PA-C Operation and Findings: This patient sustained an injury resulting in open unstable fractures of the left distal tibia and fibula. Patient was initially taken to the operating room last night for irrigation debridement, closed reduction, and external fixation. Patient was seen and evaluated preoperatively and found to have too much swelling to proceed with open reduction internal fixation. Patient was noted to have tenting of the skin. There was a bone fragment causing pressure on the traumatic laceration. Risk and benefits of surgery were discussed in depth with patient and informed consent was confirmed. Surgical site was marked. Patient was brought to operating room and placed on the OR table. Patient was given IV sedation and GETA. Patient received IV antibiotics and timeout procedure was performed. Operative leg was prepped with alcohol followed by Hibiclens and draped in the usual sterile fashion.resulting in left tibia-fibula fractures. Timeout procedure was performed. Attention was turned towards revision of the external fixation. A small incision was made over the first and fifth metatarsal. A pin was placed into the first metatarsal and fifth metatarsal. Additional clamps and bars were attached to the existing fixation construct. At this point the external fixator was loosened. attention was turned to closed reduction of the fracture. Traction was applied. The fracture was manipulated under fluoroscopy. Improved reduction was achieved. Tension was taken off of the skin once reduction was obtained. With the fracture held in reduced position, the external fixator was tightened. Fluoroscopy confirmed a well-placed external fixation with well-aligned fractures. Sterile dressings were applied. The patient was awakened and transferred to Recovery in stable condition. The soft tissue was reevaluated. Patient did have swelling around the ankle and calf but compartments were soft and compressible with no signs of compartment syndrome. Torsten Keita MD Dec 18, 2017 14:00
[2017-12-18] MEDS ORDERED: DO NOT ADM ANY ANTICOAGULANT DRUGS PRN (14:03)
--- NOTE | 2017-12-18 14:12 | PD.ORT.PN ---
Subjective Subjective Remarks Transferred in stable condition to PACU Objective Vitals Vital Signs Date Time Temp Pulse Resp B/P (MAP) Pulse Ox O2 Delivery O2 Flow Rate FiO2 12/18/17 07:38 97.5 83 18 133/83 (100) 97 12/18/17 04:40 97.2 90 17 134/71 (92) 98 12/18/17 00:30 97.4 93 17 156/91 (112) 99 12/18/17 00:14 92 18 136/92 (107) 97 Nasal Cannula 4 12/18/17 00:00 93 20 146/93 (110) 97 Nasal Cannula 4 12/17/17 23:45 98 16 139/92 (108) 94 Nasal Cannula 4 12/17/17 23:25 97.4 111 20 137/92 (107) 97 Nasal Cannula 4 12/17/17 21:31 12/17/17 21:00 88 19 141/88 (105) 98 Nasal Cannula 2.00 12/17/17 20:25 97 12.00 12/17/17 20:25 98 Nasal Cannula 2.00 12/17/17 20:25 97 Non-Rebreather 12.00 12/17/17 20:25 16 98 Nasal Cannula 2.00 12/17/17 19:37 100 2.00 12/17/17 19:15 80 16 123/79 (94) 12/17/17 19:10 124/88 (100) 12/17/17 19:05 102 16 89/66 (74) 99 Non-Rebreather 12/17/17 18:55 102 14 69/42 (51) 90 Room Air 12/17/17 18:55 98.2 101 14 68/52 (57) 90 I/O 12/17/17 12/17/17 12/17/17 12/18/17 12/18/17 12/18/17 07:00 15:00 23:00 07:00 15:00 23:00 Intake Total 1240 ml 1000 ml Output Total 2250 ml Balance -1010 ml 1000 ml Intake Oral 240 ml IV Total 1000 ml Other 1000 ml Output Urine Total 2200 ml Estimated Blood Loss 50 ml # Bowel Movements 0 Result Diagram: 12/18/17 0640 12/18/17 0640 Other Results Laboratory Tests Test 12/17/17 18:55 Prothromb Time International Ratio 1.1 RATIO Prothrombin Time 10.7 SEC (9.8-11.6) Imaging Last 24 hours Impressions Pelvis X-Ray 12/17/171946 Signed Impressions: Service Date/Time: December 19:38 - CONCLUSION: Normal examination for a patient of this age. Garo Foreman MD Maxillofacial CT 12/17/171946 Signed Impressions: Service Date/Time: December 19:50 - CONCLUSION: 1. Pansinus mucosal thickening with partial opacification of the ethmoids and maxillary sinuses. Garo Foreman MD Head CT 12/17/171946 Signed Impressions: Service Date/Time: December 19:50 - CONCLUSION: 1. No acute intracranial abnormalities. Paranasal sinus disease. Garo Foreman MD Chest X-Ray 12/17/171946 Signed Impressions: Service Date/Time: December 19:38 - CONCLUSION: No acute disease. Garo Foreman MD Chest CT 12/17/171946 Signed Impressions: Service Date/Time: December 19:57 - CONCLUSION: 1. Negative for acute traumatic injury within the thorax. Scattered post inflammatory changes in the lungs with several tiny sub-3 mm nodules. Garo Foreman MD Cervical Spine CT 12/17/171946 Signed Impressions: Service Date/Time: December 19:50 - CONCLUSION: Normal examination for a patient of this age. Garo Foreman MD Abdomen/Pelvis CT 12/17/171946 Signed Impressions: Service Date/Time: December 19:57 - CONCLUSION: Negative for acute traumatic injury within the abdomen and pelvis. Garo Foreman MD Objective Remarks Left lower extremity: Clean dry dressings intact. External fixator in place. Good capillary refills in distal pulses Assessment & Plan Assessment and Plan 1) Open Left distal Tibia Fx s/p I&D and revision of exfix - POD 0 -NWB -pin care BID -Elevation and ice We will plan on surgery in 5-10 days depending on swelling and traumatic laceration Akbar Rogers Jr. Dec 18, 2017 14:11
--- NOTE | 2017-12-18 14:21 | RADRPT ---
EXAM DATE/TIME: 12/18/2017 13:39 [facility] COMPARISON: ANKLE LEFT LIMITED (AP&LAT), December 17, 2017, 19:38. INDICATIONS : Ankle fracture. MEDICAL HISTORY : None. SURGICAL HISTORY : Left ankle external fixator. ENCOUNTER: Subsequent ACUITY: 1 day PAIN SCORE: Non-responsive. LOCATION: Left Ankle. FINDINGS: Two intraprocedural fluoroscopic images of the left ankle again demonstrate severely comminuted intra -articular displaced fractures of the distal tibia and fibula. CONCLUSION: 1. Severely comminuted distal tibia and fibular fractures, as above. Kenny Byers MD on December 18, 2017 at 14:18 Board Certified Radiologist. This report was verified electronically.
[2017-12-18] MEDS ORDERED: *morphine SULFATE 4 MG/ML PERIprocedure ONLY ONE (14:25)
[2017-12-18] MEDS ORDERED: diphenhydrAMINE HCL 25 MG CAP PO PRN (14:30)
[2017-12-18] MEDS: LACTATED RINGER'S 1000 ML INJ 1,000 ML IV SCH (14:30)
[2017-12-18 15:00] VITALS: BP 132/86; PULSE 68; RESP 18; TEMP 97.4; O2SAT 98
[2017-12-18] MEDS ORDERED: Post-op Orders (for Pharmacy) XX ONE (15:00)
--- NOTE | 2017-12-18 15:19 | RADRPT ---
EXAM DATE/TIME: 12/17/2017 22:31 [facility] COMPARISON: ANKLE LEFT LIMITED (AP&LAT), December 17, 2017, 19:38. INDICATIONS : Post Ex fix MEDICAL HISTORY : None. SURGICAL HISTORY : None. ENCOUNTER: Subsequent ACUITY: 1 day PAIN SCORE: Non-responsive. LOCATION: Left ANKLE FINDINGS: 4 views of the distal tibial and fibular comminuted fractures are obtained digitally in the operating room using C-arm. CONCLUSION: Intraoperative images. Naresh Barrios MD on December 18, 2017 at 15:16 Board Certified Radiologist. This report was verified electronically.
--- NOTE | 2017-12-18 15:54 | RADRPT ---
EXAM DATE/TIME: 12/18/2017 15:27 [facility] COMPARISON: No previous studies available for comparison. INDICATIONS : Post ankle fracture.Fall. RADIATION DOSE: 7.29 CTDIvol (mGy) MEDICAL HISTORY : None SURGICAL HISTORY : Ankle fracture pins ENCOUNTER: Initial ACUITY: 2 days PAIN SCALE: 0/10 LOCATION: Left ankle TECHNIQUE: Volumetric scanning of the ankle was performed. Using automated exposure control and adjustment of t he mA and/or kV according to patient size, radiation dose was kept as low as reasonably achievable to obtain optimal diagnostic quality images. DICOM format image data is available electronically for review and comparison. FINDINGS: Severely comminuted fractures of the distal tibia and fibula. There are multiple displaced butterfly fragments. There is extensive gas in the soft tissues about the proximal tibial fragments and a few flecks of gas about the distal tibial fragments. There is greater than 45 posterior angulation of one of the tibial fragments. There is several fracture lines extend to intra-articular into the tibi al talar joint and there is 3 mm separation of the posterior longitudinal fracture line. CONCLUSION: Severely comminuted fractures of the distal diaphysis and metaphysis of the tibia and fibula. There are several intra-articular fracture lines extending into the tibiotalar joint. Multiple areas of so ft tissue gas suggests that this is an open injury. Naresh Barrios MD on December 18, 2017 at 15:49 Board Certified Radiologist. This report was verified electronically.
[2017-12-18] MEDS ORDERED: GENTAMICIN 80 MG PREMIX 100 ML IV SCH (17:00)
[2017-12-18] MEDS: GABAPENTIN 300 MG CAP PO SCH (17:40)
[2017-12-18] MEDS: ACETAMINOPHEN/HYDROcodone 325 MG/10 MG TAB PO PRN ×2 (17:40→21:55)
[2017-12-18] MEDS: SODIUM CHLORIDE 0.9% FLUSH 10 ML FLUSH IV FLUSH SCH ×2 (17:45→21:00)
[2017-12-18] MEDS: GENTAMICIN INJ 80 MG in SODIUM CHLORIDE 0.9% INJ 100 ML IV SCH (18:27)
[2017-12-18 19:34] VITALS: O2SAT 98
[2017-12-18 19:35] VITALS: BP 129/62; PULSE 87; RESP 17; TEMP 97.5; O2SAT 95
[2017-12-19 00:05] VITALS: BP 113/64; PULSE 91; RESP 17; TEMP 97.7; O2SAT 95
[2017-12-19] MEDS: MULTIVITAMIN INJ 10 ML, THIAMINE INJ 100 MG, FOLIC ACID INJ 1 MG in SODIUM CHLORID 0.9%... IV SCH ×2 (00:28→22:57)
[2017-12-19] MEDS: GENTAMICIN INJ 80 MG in SODIUM CHLORIDE 0.9% INJ 100 ML IV SCH ×3 (00:28→16:22)
[2017-12-19] MEDS: ENOXAPARIN SODIUM 30 MG/0.3 ML SYRINGE SQ SCH ×2 (01:53→13:30)
[2017-12-19] MEDS: ACETAMINOPHEN/HYDROcodone 325 MG/10 MG TAB PO PRN ×6 (01:57→20:55)
[2017-12-19] MEDS: LACTATED RINGER'S 1000 ML INJ 1,000 ML IV SCH (03:00)
[2017-12-19] MEDS: CHLORHEXIDINE GLUCONATE 2 % 1 PACK (2 CLOTHS) TOP SCH (04:00)
[2017-12-19 04:15] VITALS: BP 123/65; PULSE 81; RESP 17; TEMP 97.6; O2SAT 94
[2017-12-19] MEDS: KETOROLAC TROMETHAMINE 30 MG/ML (IVP) VIAL IVP SCH ×4 (05:26→20:54)
[2017-12-19 05:29] LABS: HEMATOCRIT 36.5 % (39.0-51.0); HEMOGLOBIN 12.7 GM/DL (13.0-17.0)
[2017-12-19 08:00] VITALS: BP 126/74; PULSE 76; RESP 17; TEMP 97.3; O2SAT 97
[2017-12-19] MEDS: DOCUSATE SODIUM 100 MG CAP PO SCH (08:11)
[2017-12-19] MEDS: FAMOTIDINE 20 MG TAB PO SCH ×2 (08:11→20:51)
[2017-12-19] MEDS: SODIUM CHLORIDE 0.9% FLUSH 10 ML FLUSH IV FLUSH SCH ×2 (08:12→21:45)
[2017-12-19] MEDS: BACITRACIN TOP OINT 15 GM TUBE TOP SCH ×2 (08:12→22:12)
[2017-12-19] MEDS: DOCUSATE SODIUM 50 MG/SENNA 8.6 MG TAB PO SCH ×2 (08:12→20:51)
[2017-12-19] MEDS: GABAPENTIN 300 MG CAP PO SCH ×3 (08:12→17:53)
--- NOTE | 2017-12-19 10:14 | PD.ORT.PN ---
Subjective Post Op Day #: 1 Subjective Remarks Patient resting in bed with overall improvement in pain since surgery. Patient states pain is mild. Objective Vitals Vital Signs Date Time Temp Pulse Resp B/P (MAP) Pulse Ox O2 Delivery O2 Flow Rate FiO2 12/19/17 08:00 97.3 76 17 126/74 (91) 97 12/19/17 04:15 97.6 81 17 123/65 (84) 94 12/19/17 00:05 97.7 91 17 113/64 (80) 95 12/18/17 19:35 97.5 87 17 129/62 (84) 95 12/18/17 19:34 98 21 12/18/17 15:00 97.4 68 18 132/86 (101) 98 12/18/17 14:45 97.7 72 14 141/85 (103) 99 Nasal Cannula 2 12/18/17 14:30 71 14 140/87 (104) 99 Nasal Cannula 2 12/18/17 14:15 70 14 163/91 (115) 100 Nasal Cannula 2 12/18/17 14:05 97.7 89 14 169/99 (122) 92 Nasal Cannula 2 I/O 12/18/17 12/18/17 12/18/17 12/19/17 12/19/17 12/19/17 07:00 15:00 23:00 07:00 15:00 23:00 Intake Total 1240 ml 1000 ml 960 ml Output Total 2250 ml 900 ml 1100 ml Balance -1010 ml 100 ml -140 ml Intake Oral 240 ml 960 ml IV Total 1000 ml Other 1000 ml Output Urine Total 2200 ml 900 ml 1100 ml Estimated Blood Loss 50 ml # Bowel Movements 0 0 0 Result Diagram: 12/19/17 0437 12/18/17 0640 Imaging Last 24 hours Impressions Pelvis X-Ray 12/17/171946 Signed Impressions: Service Date/Time: December 19:38 - CONCLUSION: Normal examination for a patient of this age. Garo Foreman MD Maxillofacial CT 12/17/171946 Signed Impressions: Service Date/Time: December 19:50 - CONCLUSION: 1. Pansinus mucosal thickening with partial opacification of the ethmoids and maxillary sinuses. Garo Foreman MD Head CT 12/17/171946 Signed Impressions: Service Date/Time: December 19:50 - CONCLUSION: 1. No acute intracranial abnormalities. Paranasal sinus disease. Garo Foreman MD Chest X-Ray 12/17/171946 Signed Impressions: Service Date/Time: , December 17, 2017 19:38 - CONCLUSION: No acute disease. Garo Foreman MD Chest CT 12/17/171946 Signed Impressions: Service Date/Time: December 19:57 - CONCLUSION: 1. Negative for acute traumatic injury within the thorax. Scattered post inflammatory changes in the lungs with several tiny sub-3 mm nodules. Garo Foreman MD Cervical Spine CT 12/17/171946 Signed Impressions: Service Date/Time: December 19:50 - CONCLUSION: Normal examination for a patient of this age. Garo Foreman MD Abdomen/Pelvis CT 12/17/171946 Signed Impressions: Service Date/Time: December 19:57 - CONCLUSION: Negative for acute traumatic injury within the abdomen and pelvis. Garo Foreman MD Objective Remarks Left lower extremity: Clean with mild serosanguineous drainage at proximal pin, dressings intact. External fixator in place. Good capillary refills in distal pulses. Minimal swelling Assessment & Plan Ortho Post Op Day #: 1 Problem List: Assessment and Plan 1) Open Left distal Tibia Fx s/p I&D and revision of exfix - POD 1 -NWB -pin care BID -Elevation and ice We will plan on surgery in 5-10 days depending on swelling and traumatic laceration Ryder Camacho Dec 19, 2017 10:14
--- NOTE | 2017-12-19 11:50 | HHI.PR ---
Subjective Subjective Notes Reports right leg pain is much better since having the ex-fix revised Asking when he can go home Objective Vitals/I&O Vital Signs Date Time Temp Pulse Resp B/P (MAP) Pulse Ox O2 Delivery O2 Flow Rate FiO2 12/19/17 10:24 18 12/19/17 08:00 97.3 76 126/74 (91) 97 12/18/17 19:34 21 12/18/17 14:45 Nasal Cannula 2 Labs Laboratory Tests Test 12/19/17 04:37 Hemoglobin 12.7 Hematocrit 36.5 Radiology Last Impressions Ankle X-Ray 12/18/17 0000 Signed Impressions: Service Date/Time: Monday, December 18, 2017 13:39 - CONCLUSION: 1. Severely comminuted distal tibia and fibular fractures, as above. Kenny Byers MD Pelvis X-Ray 12/17/171946 Signed Impressions: Service Date/Time: December 19:38 - CONCLUSION: Normal examination for a patient of this age. Garo Foreman MD Maxillofacial CT 12/17/171946 Signed Impressions: Service Date/Time: December 19:50 - CONCLUSION: 1. Pansinus mucosal thickening with partial opacification of the ethmoids and maxillary sinuses. Garo Foreman MD Head CT 12/17/171946 Signed Impressions: Service Date/Time: December 19:50 - CONCLUSION: 1. No acute intracranial abnormalities. Paranasal sinus disease. Garo Foreman MD Chest X-Ray 12/17/171946 Signed Impressions: Service Date/Time: December 19:38 - CONCLUSION: No acute disease. Garo Foreman MD Chest CT 12/17/171946 Signed Impressions: Service Date/Time: December 19:57 - CONCLUSION: 1. Negative for acute traumatic injury within the thorax. Scattered post inflammatory changes in the lungs with several tiny sub-3 mm nodules. Garo Foreman MD Cervical Spine CT 12/17/171946 Signed Impressions: Service Date/Time: December 19:50 - CONCLUSION: Normal examination for a patient of this age. Garo Foreman MD Abdomen/Pelvis CT 12/17/171946 Signed Impressions: Service Date/Time: December 19:57 - CONCLUSION: Negative for acute traumatic injury within the abdomen and pelvis. Garo Foreman MD Lower Extremity CT 12/17/17 0000 Signed Impressions: Service Date/Time: Monday, December 18, 2017 15:27 - CONCLUSION: Severely comminuted fractures of the distal diaphysis and metaphysis of the tibia and fibula. There are several intra-articular fracture lines extending into the tibiotalar joint. Multiple areas of soft tissue gas suggests that this is an open injury. Naresh Barrios MD Narrative Exam GENERAL: 37-year-old well-nourished, well developed male lying in bed eating breakfast. SKIN: Warm and dry. 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 HEAD: Atraumatic. Normocephalic. EYES: Pupils equal and round. No scleral icterus. ENT: No nasal bleeding or discharge. Mucous membranes pink and moist. NECK: Trachea midline. No JVD. CARDIOVASCULAR: Regular rate and rhythm. RESPIRATORY: No accessory muscle use. Lungs clear to auscultation. Breath sounds equal bilaterally. GASTROINTESTINAL: Abdomen soft, non-tender, nondistended. + BS. MUSCULOSKELETAL: Extremities without cyanosis, +1 LLE edema. LLE ex- fix in place with small amount of sanguinous drainage noted. MAEW, + perfused NEUROLOGICAL: Awake and alert. Normal speech. A/P Assessment and Plan [place]: Allegedly fell from 5 feet onto his left leg. ETOH= 181. Found down by a passerby and brought to the ER. Transferred for trauma services. INJURIES: Road rash Open LEFT tib/fib fx LEFT calcaneus fx PMHx: 1 PPD smoker, ETOH use 12/17: I&D, placement of external fixation left leg 12/18: Closed reduction and revision of external fixation Road rash Supportive care Wound care: Cleanse left arm wound daily with soap and water. Apply bacitracin twice a day and leave open to air Open LEFT tib/fib fx, LEFT calcaneus fx Orthopedics consulted 4/5: I&D, placement of external fixation left leg 12/18: Closed reduction and revision of external fixation Orthopedics planning more surgery and 5-10 days depending on edema Pain control Bowel regimen Pin care BID ABx per Orthopedics: Haylee ZAMBRANO LLE Plan of care discussed with patient at bedside. Collaborating trauma MDerrick agrees with plan. Case management consulted to assist with discharge planning. Attending Statement patient seen at bedside as above leg better after adjustment d/c planning with discuss with ortho for possible d.c and recs Attestation The exam, history, and the medical decision-making described in the above note were completed with the assistance of the mid-level provider. I reviewed and agree with the findings presented. I attest that I had a [id number] encounter with the patient on the same day, and personally performed and documented my assessment and findings in the medical record. Jose Guaman Dec 19, 2017 11:50 Montrell Mitchell MD Dec 23, 2017 14:55
[2017-12-19 12:00] VITALS: BP 135/70; PULSE 89; RESP 18; TEMP 97.6; O2SAT 96
[2017-12-19] MEDS ORDERED: KETOROLAC TROMETHAMINE 30 MG/ML (IVP) VIAL IVP SCH (14:00)
[2017-12-19 16:34] VITALS: BP 118/70; PULSE 81; RESP 17; TEMP 97.7; O2SAT 95
[2017-12-19 20:00] VITALS: BP 132/83; PULSE 98; RESP 18; TEMP 97.6; O2SAT 96
[2017-12-20] VITALS: BP 121/75; PULSE 83; RESP 19; TEMP 97.7; O2SAT 94
[2017-12-20] MEDS: GENTAMICIN INJ 80 MG in SODIUM CHLORIDE 0.9% INJ 100 ML IV SCH ×2 (00:57→09:39)
[2017-12-20] MEDS: ACETAMINOPHEN/HYDROcodone 325 MG/10 MG TAB PO PRN ×5 (01:35→18:06)
[2017-12-20] MEDS: ENOXAPARIN SODIUM 30 MG/0.3 ML SYRINGE SQ SCH ×2 (01:35→14:09)
[2017-12-20] MEDS: CHLORHEXIDINE GLUCONATE 2 % 1 PACK (2 CLOTHS) TOP SCH (03:34)
[2017-12-20] MEDS: KETOROLAC TROMETHAMINE 30 MG/ML (IVP) VIAL IVP SCH ×2 (03:53→12:04)
[2017-12-20 08:00] VITALS: BP 156/94; PULSE 76; RESP 20; TEMP 98.3; O2SAT 96
[2017-12-20] MEDS: DOCUSATE SODIUM 50 MG/SENNA 8.6 MG TAB PO SCH ×2 (08:40→20:21)
[2017-12-20] MEDS: GABAPENTIN 300 MG CAP PO SCH ×3 (08:40→18:05)
[2017-12-20] MEDS: FAMOTIDINE 20 MG TAB PO SCH ×2 (08:40→20:21)
[2017-12-20] MEDS: SODIUM CHLORIDE 0.9% FLUSH 10 ML FLUSH IV FLUSH SCH ×2 (09:00→20:21)
[2017-12-20] MEDS: BACITRACIN TOP OINT 15 GM TUBE TOP SCH ×2 (09:40→20:21)
--- NOTE | 2017-12-20 10:16 | PD.ORT.PN ---
Subjective Subjective Remarks Patient resting in bed with minimal pain. Patient requesting to go home for sister's and then return for final surgery this week. I informed the patient he should stay secondary to risks for infection and because of upcoming surgery. Objective Vitals Vital Signs Date Time Temp Pulse Resp B/P (MAP) Pulse Ox O2 Delivery O2 Flow Rate FiO2 12/20/17 09:40 18 12/20/17 08:00 98.3 76 20 156/94 (114) 96 12/20/17 04:29 18 12/20/17 00:00 97.7 83 19 121/75 (90) 94 12/19/17 22:40 Room Air 12/19/17 20:00 97.6 98 18 132/83 (99) 96 12/19/17 16:34 97.7 81 17 118/70 (86) 95 12/19/17 12:00 97.6 89 18 135/70 (91) 96 I/O 12/19/17 12/19/17 12/19/17 12/20/17 12/20/17 12/20/17 07:00 15:00 23:00 07:00 15:00 23:00 Intake Total 960 ml 1200 ml 100 ml 1513.2 ml Output Total 1100 ml 850 ml 1925 ml Balance -140 ml 350 ml 100 ml -411.8 ml Intake Oral 960 ml 1200 ml 800 ml IV Total 100 ml 713.2 ml Output Urine Total 1100 ml 850 ml 1925 ml # Bowel Movements 0 2 Result Diagram: 12/19/17 0437 12/18/17 0640 Imaging Last 24 hours Impressions Pelvis X-Ray 12/17/171946 Signed Impressions: Service Date/Time: December 19:38 - CONCLUSION: Normal examination for a patient of this age. Garo Foreman MD Maxillofacial CT 12/17/171946 Signed Impressions: Service Date/Time: December 19:50 - CONCLUSION: 1. Pansinus mucosal thickening with partial opacification of the ethmoids and maxillary sinuses. Garo Foreman MD Head CT 12/17/171946 Signed Impressions: Service Date/Time: December 19:50 - CONCLUSION: 1. No acute intracranial abnormalities. Paranasal sinus disease. Garo Foreman MD Chest X-Ray 12/17/171946 Signed Impressions: Service Date/Time: December 19:38 - CONCLUSION: No acute disease. Garo Foreman MD Chest CT 12/17/171946 Signed Impressions: Service Date/Time: December 19:57 - CONCLUSION: 1. Negative for acute traumatic injury within the thorax. Scattered post inflammatory changes in the lungs with several tiny sub-3 mm nodules. Garo Foreman MD Cervical Spine CT 12/17/171946 Signed Impressions: Service Date/Time: December 19:50 - CONCLUSION: Normal examination for a patient of this age. Garo Foreman MD Abdomen/Pelvis CT 12/17/171946 Signed Impressions: Service Date/Time: December 19:57 - CONCLUSION: Negative for acute traumatic injury within the abdomen and pelvis. Garo Foreman MD Objective Remarks Left lower extremity: Dressing changed with no drainage. Current dressing is C/ D/I. External fixator in place. Good capillary refills in distal pulses. Minimal swelling. Assessment & Plan Ortho Post Op Day #: 2 Problem List: Assessment and Plan 1) Open Left distal Tibia Fx s/p I&D and revision of exfix - POD 2 -NWB -pin care BID -Elevation and ice We will plan on surgery in 5-10 days depending on swelling and traumatic laceration Ryder Camacho Dec 20, 2017 10:16
[2017-12-20 12:00] VITALS: BP 143/77; PULSE 69; RESP 20; TEMP 97.7; O2SAT 97
--- NOTE | 2017-12-20 12:16 | HHI.PR ---
Subjective Subjective Notes Pain controlled Requesting to go home with ex-fix, I asked nurse to check with Ortho Objective Vitals/I&O Vital Signs Date Time Temp Pulse Resp B/P (MAP) Pulse Ox O2 Delivery O2 Flow Rate FiO2 12/20/17 09:40 18 12/20/17 08:00 98.3 76 156/94 (114) 96 12/20/17 07:00 Room Air 12/18/17 19:34 21 12/18/17 14:45 2 Labs Laboratory Tests Test 12/17/17 18:55 12/17/17 21:30 12/18/17 06:40 12/19/17 04:37 Prothrombin Time 10.7 SEC Prothromb Time International Ratio 1.1 RATIO Activated Partial Thromboplast Time 24.5 SEC Blood Urea Nitrogen 7 MG/DL 8 MG/DL Creatinine 1.20 MG/DL 0.97 MG/DL Random Glucose 125 MG/DL 151 MG/DL Total Protein 7.2 GM/DL Albumin 3.7 GM/DL Calcium Level 8.2 MG/DL 7.7 MG/DL Alkaline Phosphatase 75 U/L Aspartate Amino Transf (AST/SGOT) 60 U/L Alanine Aminotransferase (ALT/SGPT) 79 U/L Total Bilirubin 0.7 MG/DL Direct Bilirubin 0.1 MG/DL Sodium Level 130 MEQ/L 139 MEQ/L Potassium Level 3.2 MEQ/L 4.3 MEQ/L Chloride Level 95 MEQ/L 106 MEQ/L Carbon Dioxide Level 18.4 MEQ/L 25.0 MEQ/L Indirect Bilirubin 0.6 MG/DL Total Creatine Kinase 158 U/L Ethyl Alcohol Level 181 MG/DL Lactic Acid Level 2.9 mmol/L White Blood Count 13.8 TH/MM3 Red Blood Count 4.62 MIL/MM3 Mean Corpuscular Volume 92.6 FL Mean Corpuscular Hemoglobin 32.1 PG Mean Corpuscular Hemoglobin Concent 34.7 % Red Cell Distribution Width 13.7 % Platelet Count 213 TH/MM3 Mean Platelet Volume 8.1 FL Neutrophils (%) (Auto) 91.2 % Lymphocytes (%) (Auto) 5.3 % Monocytes (%) (Auto) 3.2 % Eosinophils (%) (Auto) 0.0 % Basophils (%) (Auto) 0.3 % Neutrophils # (Auto) 12.6 TH/MM3 Lymphocytes # (Auto) 0.7 TH/MM3 Monocytes # (Auto) 0.4 TH/MM3 Eosinophils # (Auto) 0.0 TH/MM3 Basophils # (Auto) 0.0 TH/MM3 CBC Comment DIFF FINAL Differential Comment Anion Gap 8 MEQ/L Estimat Glomerular Filtration Rate 87 ML/MIN Hemoglobin 12.7 GM/DL Hematocrit 36.5 % Radiology Last Impressions Ankle X-Ray 12/18/17 0000 Signed Impressions: Service Date/Time: Monday, December 18, 2017 13:39 - CONCLUSION: 1. Severely comminuted distal tibia and fibular fractures, as above. Kenny Byers MD Pelvis X-Ray 12/17/171946 Signed Impressions: Service Date/Time: December 19:38 - CONCLUSION: Normal examination for a patient of this age. Garo Foreman MD Maxillofacial CT 12/17/171946 Signed Impressions: Service Date/Time: December 19:50 - CONCLUSION: 1. Pansinus mucosal thickening with partial opacification of the ethmoids and maxillary sinuses. Garo Foreman MD Head CT 12/17/171946 Signed Impressions: Service Date/Time: December 19:50 - CONCLUSION: 1. No acute intracranial abnormalities. Paranasal sinus disease. Garo Foreman MD Chest X-Ray 12/17/171946 Signed Impressions: Service Date/Time: December 19:38 - CONCLUSION: No acute disease. Garo Foreman MD Chest CT 12/17/171946 Signed Impressions: Service Date/Time: December 19:57 - CONCLUSION: 1. Negative for acute traumatic injury within the thorax. Scattered post inflammatory changes in the lungs with several tiny sub-3 mm nodules. Garo Foreman MD Cervical Spine CT 12/17/171946 Signed Impressions: Service Date/Time: December 19:50 - CONCLUSION: Normal examination for a patient of this age. Garo Foreman MD Abdomen/Pelvis CT 12/17/177 Signed Impressions: Service Date/Time: December 19:57 - CONCLUSION: Negative for acute traumatic injury within the abdomen and pelvis. Garo Foreman MD Lower Extremity CT 12/17/17 0000 Signed Impressions: Service Date/Time: Monday, December 18, 2017 15:27 - CONCLUSION: Severely comminuted fractures of the distal diaphysis and metaphysis of the tibia and fibula. There are several intra-articular fracture lines extending into the tibiotalar joint. Multiple areas of soft tissue gas suggests that this is an open injury. Naresh Barrios MD Narrative Exam GENERAL: 37-year-old well-nourished, well developed male lying in bed in no acute distress. SKIN: Warm and dry. LUE road rash. HEAD: Atraumatic. Normocephalic. EYES: Pupils equal and round. No scleral icterus. ENT: No nasal bleeding or discharge. Mucous membranes pink and moist. NECK: Trachea midline. No JVD. CARDIOVASCULAR: Regular rate and rhythm. RESPIRATORY: No accessory muscle use. Lungs clear to auscultation. Breath sounds equal bilaterally. GASTROINTESTINAL: Abdomen soft, non-tender, nondistended. + BS. MUSCULOSKELETAL: Extremities without cyanosis, +1 LLE edema. LLE ex- fix with TERRA wrap in place. MAEW, + perfused NEUROLOGICAL: Awake and alert. Normal speech. A/P Assessment and Plan [place]: Allegedly fell from 5 feet onto his left leg. ETOH= 181. Found down by a passerby and brought to the ER. Transferred for trauma services. INJURIES: Road rash Open LEFT tib/fib fx LEFT calcaneus fx PMHx: 1 PPD smoker, ETOH use 12/17: I&D, placement of external fixation left leg Road rash Supportive care Bacitracin BID Open LEFT tib/fib fx, LEFT calcaneus fx Orthopedics consulted 12/17: I&D, placement of external fixation left leg 12/18: Closed reduction and revision of external fixation Pain control Bowel regimen Pin care BID ABx per Orthopedics: Haylee NWBruno LLE Plan of care d/w patient and RN at bedside. Collaborating trauma M.D. agrees with plan. Case management consulted to assist with discharge planning. Attending Statement patient seen at bedside s/p LLE fx with ex fix will stable from trauma multi organ stand point discuss with ortho for further recs and possible outpt tx Attestation The exam, history, and the medical decision-making described in the above note were completed with the assistance of the mid-level provider. I reviewed and agree with the findings presented. I attest that I had a [id number] encounter with the patient on the same day, and personally performed and documented my assessment and findings in the medical record. Jose Guaman Dec 20, 2017 12:16 Montrell Mitchell MD Dec 31, 2017 18:29
[2017-12-20 16:00] VITALS: BP 125/76; PULSE 72; RESP 18; TEMP 97.6; O2SAT 97
[2017-12-20 19:37] VITALS: BP 153/81; PULSE 67; RESP 18; TEMP 97.6; O2SAT 97
[2017-12-20] MEDS: MULTIVITAMIN INJ 10 ML, THIAMINE INJ 100 MG, FOLIC ACID INJ 1 MG in SODIUM CHLORID 0.9%... IV SCH (23:44)
[2017-12-21] MEDS: ACETAMINOPHEN/HYDROcodone 325 MG/10 MG TAB PO PRN ×7 (00:07→21:38)
[2017-12-21 00:10] VITALS: BP 141/80; PULSE 74; RESP 18; TEMP 97.4; O2SAT 97
[2017-12-21] MEDS: ENOXAPARIN SODIUM 30 MG/0.3 ML SYRINGE SQ SCH (02:31)
[2017-12-21] MEDS: CHLORHEXIDINE GLUCONATE 2 % 1 PACK (2 CLOTHS) TOP SCH (02:34)
--- NOTE | 2017-12-21 06:36 | PD.ORT.PN ---
Subjective Subjective Remarks POD 4 s/p I&D with wound closure and exfix left distal tibia doing well. reports pain controlled. resting comfortably Objective Vitals Vital Signs Date Time Temp Pulse Resp B/P (MAP) Pulse Ox O2 Delivery O2 Flow Rate FiO2 12/21/17 00:51 18 12/21/17 00:10 97.4 74 18 141/80 (100) 97 12/20/17 21:39 Room Air 12/20/17 19:50 21 12/20/17 19:37 97.6 67 18 153/81 (105) 97 12/20/17 16:00 97.6 72 18 125/76 (92) 97 12/20/17 13:04 18 12/20/17 12:00 97.7 69 20 143/77 (99) 97 12/20/17 08:00 98.3 76 20 156/94 (114) 96 12/20/17 07:00 Room Air I/O 12/20/17 12/20/17 12/20/17 12/21/17 12/21/17 12/21/17 07:00 15:00 23:00 07:00 15:00 23:00 Intake Total 1513.2 ml 1440 ml 871.2 ml Output Total 1925 ml 2200 ml Balance -411.8 ml -760 ml 871.2 ml Intake Oral 800 ml 1440 ml 360 ml IV Total 713.2 ml 511.2 ml Output Urine Total 1925 ml 2200 ml # Voids 2 # Bowel Movements 0 Result Diagram: 12/19/17 0437 12/18/17 0640 Imaging Last 24 hours Impressions Pelvis X-Ray 12/17/171946 Signed Impressions: Service Date/Time: December 19:38 - CONCLUSION: Normal examination for a patient of this age. Garo Foreman MD Maxillofacial CT 12/17/171946 Signed Impressions: Service Date/Time: December 19:50 - CONCLUSION: 1. Pansinus mucosal thickening with partial opacification of the ethmoids and maxillary sinuses. Garo Foreman MD Head CT 12/17/171946 Signed Impressions: Service Date/Time: December 19:50 - CONCLUSION: 1. No acute intracranial abnormalities. Paranasal sinus disease. Garo Foreman MD Chest X-Ray 12/17/171946 Signed Impressions: Service Date/Time: December 19:38 - CONCLUSION: No acute disease. Garo Foreman MD Chest CT 12/17/171946 Signed Impressions: Service Date/Time: December 19:57 - CONCLUSION: 1. Negative for acute traumatic injury within the thorax. Scattered post inflammatory changes in the lungs with several tiny sub-3 mm nodules. Garo Foreman MD Cervical Spine CT 12/17/171946 Signed Impressions: Service Date/Time: December 19:50 - CONCLUSION: Normal examination for a patient of this age. Garo Foreman MD Abdomen/Pelvis CT 12/17/171946 Signed Impressions: Service Date/Time: December 19:57 - CONCLUSION: Negative for acute traumatic injury within the abdomen and pelvis. Garo Foreman MD Objective Remarks Left lower extremity: Dressing changed with no drainage. Current dressing is C/ D/I. External fixator in place. Good capillary refills in distal pulses. Minimal swelling. Assessment & Plan Assessment and Plan 1) Open Left distal Tibia Fx s/p I&D and revision of exfix - POD 4 -NWB -pin care BID -Elevation and ice -convert dressing over traumatic injury to 4x4 and medipore tape. 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
[2017-12-21] MEDS: KETOROLAC TROMETHAMINE 30 MG/ML (IVP) VIAL IV PUSH SCH ×4 (07:32→23:35)
[2017-12-21 08:00] VITALS: BP 123/81; PULSE 68; RESP 20; TEMP 97.7; O2SAT 94
[2017-12-21] MEDS: DOCUSATE SODIUM 50 MG/SENNA 8.6 MG TAB PO SCH ×2 (08:17→21:37)
[2017-12-21] MEDS: FAMOTIDINE 20 MG TAB PO SCH ×2 (08:17→21:36)
[2017-12-21] MEDS: GABAPENTIN 300 MG CAP PO SCH ×3 (08:17→15:14)
[2017-12-21] MEDS: SODIUM CHLORIDE 0.9% FLUSH 10 ML FLUSH IV FLUSH SCH ×2 (08:22→21:40)
[2017-12-21] MEDS: BACITRACIN TOP OINT 15 GM TUBE TOP SCH ×2 (08:25→21:38)
[2017-12-21 11:25] VITALS: BP 151/74; PULSE 62; RESP 16; TEMP 97.3; O2SAT 97
--- NOTE | 2017-12-21 12:01 | HHI.PR ---
Subjective Subjective Notes Pain controlled Orthopedics potential he planning surgery for tomorrow on left leg Objective Vitals/I&O Vital Signs Date Time Temp Pulse Resp B/P (MAP) Pulse Ox O2 Delivery O2 Flow Rate FiO2 12/21/17 11:25 97.3 62 16 151/74 (99) 97 12/21/17 08:26 Room Air 12/20/17 19:50 21 12/18/17 14:45 2 Labs Laboratory Tests Test 12/17/17 18:55 12/17/17 21:30 12/18/17 06:40 12/19/17 04:37 Prothrombin Time 10.7 SEC Prothromb Time International Ratio 1.1 RATIO Activated Partial Thromboplast Time 24.5 SEC Blood Urea Nitrogen 7 MG/DL 8 MG/DL Creatinine 1.20 MG/DL 0.97 MG/DL Random Glucose 125 MG/DL 151 MG/DL Total Protein 7.2 GM/DL Albumin 3.7 GM/DL Calcium Level 8.2 MG/DL 7.7 MG/DL Alkaline Phosphatase 75 U/L Aspartate Amino Transf (AST/SGOT) 60 U/L Alanine Aminotransferase (ALT/SGPT) 79 U/L Total Bilirubin 0.7 MG/DL Direct Bilirubin 0.1 MG/DL Sodium Level 130 MEQ/L 139 MEQ/L Potassium Level 3.2 MEQ/L 4.3 MEQ/L Chloride Level 95 MEQ/L 106 MEQ/L Carbon Dioxide Level 18.4 MEQ/L 25.0 MEQ/L Indirect Bilirubin 0.6 MG/DL Total Creatine Kinase 158 U/L Ethyl Alcohol Level 181 MG/DL Lactic Acid Level 2.9 mmol/L White Blood Count 13.8 TH/MM3 Red Blood Count 4.62 MIL/MM3 Mean Corpuscular Volume 92.6 FL Mean Corpuscular Hemoglobin 32.1 PG Mean Corpuscular Hemoglobin Concent 34.7 % Red Cell Distribution Width 13.7 % Platelet Count 213 TH/MM3 Mean Platelet Volume 8.1 FL Neutrophils (%) (Auto) 91.2 % Lymphocytes (%) (Auto) 5.3 % Monocytes (%) (Auto) 3.2 % Eosinophils (%) (Auto) 0.0 % Basophils (%) (Auto) 0.3 % Neutrophils # (Auto) 12.6 TH/MM3 Lymphocytes # (Auto) 0.7 TH/MM3 Monocytes # (Auto) 0.4 TH/MM3 Eosinophils # (Auto) 0.0 TH/MM3 Basophils # (Auto) 0.0 TH/MM3 CBC Comment DIFF FINAL Differential Comment Anion Gap 8 MEQ/L Estimat Glomerular Filtration Rate 87 ML/MIN Hemoglobin 12.7 GM/DL Hematocrit 36.5 % Radiology Last Impressions Ankle X-Ray 12/18/17 0000 Signed Impressions: Service Date/Time: Monday, December 18, 2017 13:39 - CONCLUSION: 1. Severely comminuted distal tibia and fibular fractures, as above. Kenny Byers MD Pelvis X-Ray 12/17/171946 Signed Impressions: Service Date/Time: December 19:38 - CONCLUSION: Normal examination for a patient of this age. Garo Foreman MD Maxillofacial CT 12/17/171946 Signed Impressions: Service Date/Time: December 19:50 - CONCLUSION: 1. Pansinus mucosal thickening with partial opacification of the ethmoids and maxillary sinuses. Garo Foreman MD Head CT 12/17/171946 Signed Impressions: Service Date/Time: December 19:50 - CONCLUSION: 1. No acute intracranial abnormalities. Paranasal sinus disease. Garo Foreman MD Chest X-Ray 12/17/171946 Signed Impressions: Service Date/Time: December 19:38 - CONCLUSION: No acute disease. Garo Foreman MD Chest CT 12/17/171946 Signed Impressions: Service Date/Time: December 19:57 - CONCLUSION: 1. Negative for acute traumatic injury within the thorax. Scattered post inflammatory changes in the lungs with several tiny sub-3 mm nodules. Garo Foreman MD Cervical Spine CT 12/17/171946 Signed Impressions: Service Date/Time: December 19:50 - CONCLUSION: Normal examination for a patient of this age. Garo Foreman MD Abdomen/Pelvis CT 12/17/171946 Signed Impressions: Service Date/Time: December 19:57 - CONCLUSION: Negative for acute traumatic injury within the abdomen and pelvis. Garo Foreman MD Lower Extremity CT 12/17/17 0000 Signed Impressions: Service Date/Time: Monday, December 18, 2017 15:27 - CONCLUSION: Severely comminuted fractures of the distal diaphysis and metaphysis of the tibia and fibula. There are several intra-articular fracture lines extending into the tibiotalar joint. Multiple areas of soft tissue gas suggests that this is an open injury. Naresh Barrios MD Narrative Exam GENERAL: 37-year-old well-nourished, well developed male lying in bed in no acute distress. SKIN: Warm and dry. LUE road rash. HEAD: Atraumatic. Normocephalic. EYES: Pupils equal and round. No scleral icterus. ENT: No nasal bleeding or discharge. Mucous membranes pink and moist. NECK: Trachea midline. No JVD. CARDIOVASCULAR: Regular rate and rhythm. RESPIRATORY: No accessory muscle use. Lungs clear to auscultation. Breath sounds equal bilaterally. GASTROINTESTINAL: Abdomen soft, non-tender, nondistended. + BS. MUSCULOSKELETAL: Extremities without cyanosis, +1 LLE edema. LLE ex- fix with TERRA wrap in place. MAEW, + perfused NEUROLOGICAL: Awake and alert. Normal speech. A/P Assessment and Plan [place]: Allegedly fell from 5 feet onto his left leg. ETOH= 181. Found down by a passerby and brought to the ER. Transferred for trauma services. INJURIES: Road rash Open LEFT tib/fib fx LEFT calcaneus fx PMHx: 1 PPD smoker, ETOH use 5: I&D, placement of external fixation left leg Road rash Supportive care Bacitracin BID Open LEFT tib/fib fx, LEFT calcaneus fx Orthopedics consulted 12/17: I&D, placement of external fixation left leg 12/18: Closed reduction and revision of external fixation Pain control Bowel regimen Pin care BID ABx per Orthopedics: Cam and Laureen complete Orthopedics tentatively planning surgery tomorrow NWB LLE Plan of care d/w patient at bedside. Collaborating trauma M.D. agrees with plan. Case management consulted to assist with discharge planning. The exam, history, and the medical decision-making described in the above note were completed with the assistance of the mid-level provider. I reviewed and agree with the findings presented. I attest that I had a [id number] encounter with the patient on the same day, and personally performed and documented my assessment and findings in the medical record. Jose Guaman Dec 21, 2017 12:01 Nelson Reyes MD Dec 30, 2017 21:36
[2017-12-21 16:00] VITALS: BP 141/83; PULSE 63; RESP 20; TEMP 97.7; O2SAT 94
[2017-12-21 20:00] VITALS: BP 151/84; PULSE 88; RESP 17; TEMP 97.5; O2SAT 94
[2017-12-21] MEDS: MULTIVITAMIN INJ 10 ML, THIAMINE INJ 100 MG, FOLIC ACID INJ 1 MG in SODIUM CHLORID 0.9%... IV SCH (23:33)
[2017-12-22] VITALS: BP 125/75; PULSE 82; RESP 18; TEMP 97.3; O2SAT 95
[2017-12-22] MEDS: CHLORHEXIDINE GLUCONATE 2 % 1 PACK (2 CLOTHS) TOP SCH ×2 (02:14→21:58)
[2017-12-22] MEDS: ACETAMINOPHEN/HYDROcodone 325 MG/10 MG TAB PO PRN ×6 (02:21→21:58)
[2017-12-22 04:00] VITALS: BP 138/71; PULSE 66; RESP 18; TEMP 97.7; O2SAT 96
[2017-12-22] MEDS ORDERED: POVIDONE IODINE 5% (ANTISEPSIS KIT) 4 APPLICATIONS EACH NARE PRN (05:30)
[2017-12-22] MEDS ORDERED: LACTATED RINGER'S 1000 ML IV PRN (05:30)
[2017-12-22] MEDS ORDERED: CHLORHEXIDINE GLUCONATE 2 % 1 PACK (2 CLOTHS) TOPICAL PRN (05:30)
[2017-12-22] MEDS ORDERED: SODIUM CHLORID 0.9% 500 ML IV PRN (05:30)
--- NOTE | 2017-12-22 06:29 | PD.ORT.PN ---
Subjective Subjective Remarks POD 5 s/p I&D with wound closure and exfix left distal tibia doing well. reports pain controlled. resting comfortably Objective Vitals Vital Signs Date Time Temp Pulse Resp B/P (MAP) Pulse Ox O2 Delivery O2 Flow Rate FiO2 12/22/17 04:00 97.7 66 18 138/71 (93) 96 12/22/17 03:10 18 12/22/17 00:47 18 12/22/17 00:00 97.3 82 18 125/75 (92) 95 12/21/17 23:03 Room Air 12/21/17 20:00 97.5 88 17 151/84 (106) 94 12/21/17 16:00 97.7 63 20 141/83 (102) 94 12/21/17 12:34 21 12/21/17 11:25 97.3 62 16 151/74 (99) 97 12/21/17 08:26 Room Air 12/21/17 08:00 97.7 68 20 123/81 (95) 94 I/O 12/21/17 12/21/17 12/21/17 12/22/17 12/22/17 12/22/17 07:00 15:00 23:00 07:00 15:00 23:00 Intake Total 871.2 ml 960 ml 360 ml Output Total 1000 ml Balance 871.2 ml -40 ml 360 ml Intake Oral 360 ml 960 ml 360 ml IV Total 511.2 ml Output Urine Total 1000 ml # Voids 2 3 # Bowel Movements 0 1 Result Diagram: 12/19/17 0437 12/18/17 0640 Imaging Last 24 hours Impressions Pelvis X-Ray 12/17/171946 Signed Impressions: Service Date/Time: December 19:38 - CONCLUSION: Normal examination for a patient of this age. Garo Foreman MD Maxillofacial CT 12/17/171946 Signed Impressions: Service Date/Time: December 19:50 - CONCLUSION: 1. Pansinus mucosal thickening with partial opacification of the ethmoids and maxillary sinuses. Garo Foreman MD Head CT 12/17/171946 Signed Impressions: Service Date/Time: December 19:50 - CONCLUSION: 1. No acute intracranial abnormalities. Paranasal sinus disease. Garo Foreman MD Chest X-Ray 12/17/171946 Signed Impressions: Service Date/Time: December 19:38 - CONCLUSION: No acute disease. Garo Foreman MD Chest CT 12/17/171946 Signed Impressions: Service Date/Time: , December 17, 2017 19:57 - CONCLUSION: 1. Negative for acute traumatic injury within the thorax. Scattered post inflammatory changes in the lungs with several tiny sub-3 mm nodules. Garo Foreman MD Cervical Spine CT 12/17/171946 Signed Impressions: Service Date/Time: December 19:50 - CONCLUSION: Normal examination for a patient of this age. Garo Foreman MD Abdomen/Pelvis CT 12/17/171946 Signed Impressions: Service Date/Time: December 19:57 - CONCLUSION: Negative for acute traumatic injury within the abdomen and pelvis. Garo Foreman MD Objective Remarks Left lower extremity: Dressing changed with no drainage. Current dressing is C/ D/I. External fixator in place. Good capillary refills in distal pulses. Minimal swelling. Assessment & Plan Assessment and Plan 1) Open Left distal Tibia Fx s/p I&D and revision of exfix - POD 5 -NWB -pin care BID -Elevation and ice -convert dressing over traumatic injury to 4x4 and medipore tape. avoid any constrictive elda wraps -swelling still too great for surgery -continnue daily dressing changes -will re-eval for surgery /thursday -resume diet Kamaljit Grant/[employer] Investigator [employer] Dec 22, 2017 06:29
[2017-12-22] MEDS: DOCUSATE SODIUM 50 MG/SENNA 8.6 MG TAB PO SCH ×2 (07:39→21:00)
[2017-12-22] MEDS: SODIUM CHLORIDE 0.9% FLUSH 10 ML FLUSH IV FLUSH SCH ×2 (07:41→21:00)
[2017-12-22] MEDS: FAMOTIDINE 20 MG TAB PO SCH ×2 (07:42→21:00)
[2017-12-22] MEDS: GABAPENTIN 300 MG CAP PO SCH ×3 (07:42→18:18)
[2017-12-22] MEDS: BACITRACIN TOP OINT 15 GM TUBE TOP SCH ×2 (07:43→21:00)
[2017-12-22 08:00] VITALS: BP 133/74; PULSE 66; RESP 18; TEMP 97.7; O2SAT 95
[2017-12-22 12:00] VITALS: BP 153/74; PULSE 94; RESP 18; TEMP 97.3; O2SAT 98
--- NOTE | 2017-12-22 12:48 | HHI.PR ---
Subjective Subjective Notes Too edematous for sx today Pain controlled Objective Vitals/I&O Vital Signs Date Time Temp Pulse Resp B/P (MAP) Pulse Ox O2 Delivery O2 Flow Rate FiO2 12/22/17 08:00 97.7 66 18 133/74 (93) 95 12/22/17 07:44 Room Air 12/21/17 12:34 21 12/18/17 14:45 2 Labs Laboratory Tests Test 12/17/17 18:55 12/17/17 21:30 12/18/17 06:40 12/19/17 04:37 Prothrombin Time 10.7 SEC Prothromb Time International Ratio 1.1 RATIO Activated Partial Thromboplast Time 24.5 SEC Blood Urea Nitrogen 7 MG/DL 8 MG/DL Creatinine 1.20 MG/DL 0.97 MG/DL Random Glucose 125 MG/DL 151 MG/DL Total Protein 7.2 GM/DL Albumin 3.7 GM/DL Calcium Level 8.2 MG/DL 7.7 MG/DL Alkaline Phosphatase 75 U/L Aspartate Amino Transf (AST/SGOT) 60 U/L Alanine Aminotransferase (ALT/SGPT) 79 U/L Total Bilirubin 0.7 MG/DL Direct Bilirubin 0.1 MG/DL Sodium Level 130 MEQ/L 139 MEQ/L Potassium Level 3.2 MEQ/L 4.3 MEQ/L Chloride Level 95 MEQ/L 106 MEQ/L Carbon Dioxide Level 18.4 MEQ/L 25.0 MEQ/L Indirect Bilirubin 0.6 MG/DL Total Creatine Kinase 158 U/L Ethyl Alcohol Level 181 MG/DL Lactic Acid Level 2.9 mmol/L White Blood Count 13.8 TH/MM3 Red Blood Count 4.62 MIL/MM3 Mean Corpuscular Volume 92.6 FL Mean Corpuscular Hemoglobin 32.1 PG Mean Corpuscular Hemoglobin Concent 34.7 % Red Cell Distribution Width 13.7 % Platelet Count 213 TH/MM3 Mean Platelet Volume 8.1 FL Neutrophils (%) (Auto) 91.2 % Lymphocytes (%) (Auto) 5.3 % Monocytes (%) (Auto) 3.2 % Eosinophils (%) (Auto) 0.0 % Basophils (%) (Auto) 0.3 % Neutrophils # (Auto) 12.6 TH/MM3 Lymphocytes # (Auto) 0.7 TH/MM3 Monocytes # (Auto) 0.4 TH/MM3 Eosinophils # (Auto) 0.0 TH/MM3 Basophils # (Auto) 0.0 TH/MM3 CBC Comment DIFF FINAL Differential Comment Anion Gap 8 MEQ/L Estimat Glomerular Filtration Rate 87 ML/MIN Hemoglobin 12.7 GM/DL Hematocrit 36.5 % Radiology Last Impressions Ankle X-Ray 12/18/17 0000 Signed Impressions: Service Date/Time: Monday, December 18, 2017 13:39 - CONCLUSION: 1. Severely comminuted distal tibia and fibular fractures, as above. Kenny Byers MD Pelvis X-Ray 12/17/171946 Signed Impressions: Service Date/Time: December 19:38 - CONCLUSION: Normal examination for a patient of this age. Garo Foreman MD Maxillofacial CT 12/17/171946 Signed Impressions: Service Date/Time: December 19:50 - CONCLUSION: 1. Pansinus mucosal thickening with partial opacification of the ethmoids and maxillary sinuses. Garo Foreman MD Head CT 12/17/171946 Signed Impressions: Service Date/Time: December 19:50 - CONCLUSION: 1. No acute intracranial abnormalities. Paranasal sinus disease. Garo Foreman MD Chest X-Ray 12/17/171946 Signed Impressions: Service Date/Time: December 19:38 - CONCLUSION: No acute disease. Garo Foreman MD Chest CT 12/17/171946 Signed Impressions: Service Date/Time: December 19:57 - CONCLUSION: 1. Negative for acute traumatic injury within the thorax. Scattered post inflammatory changes in the lungs with several tiny sub-3 mm nodules. Garo Foreman MD Cervical Spine CT 12/17/171946 Signed Impressions: Service Date/Time: December 19:50 - CONCLUSION: Normal examination for a patient of this age. Garo Foreman MD Abdomen/Pelvis CT 12/17/171946 Signed Impressions: Service Date/Time: December 19:57 - CONCLUSION: Negative for acute traumatic injury within the abdomen and pelvis. Garo Foreman MD Lower Extremity CT 12/17/17 0000 Signed Impressions: Service Date/Time: Monday, December 18, 2017 15:27 - CONCLUSION: Severely comminuted fractures of the distal diaphysis and metaphysis of the tibia and fibula. There are several intra-articular fracture lines extending into the tibiotalar joint. Multiple areas of soft tissue gas suggests that this is an open injury. Naresh Barrios MD Narrative Exam GENERAL: 37-year-old well-nourished, well developed male lying in bed in no acute distress. SKIN: Warm and dry. LUE road rash [place]. HEAD: Atraumatic. Normocephalic. EYES: Pupils equal and round. No scleral icterus. ENT: No nasal bleeding or discharge. Mucous membranes pink and moist. NECK: Trachea midline. No JVD. CARDIOVASCULAR: Regular rate and rhythm. RESPIRATORY: No accessory muscle use. Lungs clear to auscultation. Breath sounds equal bilaterally. GASTROINTESTINAL: Abdomen soft, non-tender, nondistended. + BS. MUSCULOSKELETAL: Extremities without cyanosis, +1 LLE edema. LLE ex- fix with TERRA wrap in place. MAEW, + perfused NEUROLOGICAL: Awake and alert. Normal speech. A/P Assessment and Plan [place]: Allegedly fell onto his left leg. ETOH= 181. Found down on the side of the road by a passerby and brought to the ER. Transferred for trauma services. 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 Collaborating trauma M.Romaine agrees with plan. Case management consulted to assist with discharge planning. Jose Guaman APPIAN BPM DEVELOPER Dec 22, 2017 12:48
[2017-12-22 16:00] VITALS: BP 141/78; PULSE 71; RESP 18; TEMP 97.8; O2SAT 95
[2017-12-22 18:27] VITALS: BP 138/68; PULSE 83; TEMP 97.7; O2SAT 96
[2017-12-22] MEDS: MULTIVITAMIN INJ 10 ML, THIAMINE INJ 100 MG, FOLIC ACID INJ 1 MG in SODIUM CHLORID 0.9%... IV SCH (21:58)
[2017-12-23] MEDS: MAGNESIUM HYDROXIDE SUSP 30 ML CUP PO SCH ×3 (00:06→20:26)
[2017-12-23 00:07] VITALS: BP 121/80; PULSE 78; RESP 18; TEMP 98.8; O2SAT 97
[2017-12-23] MEDS: ACETAMINOPHEN/HYDROcodone 325 MG/10 MG TAB PO PRN ×6 (03:47→22:59)
[2017-12-23 04:01] LABS: AUTOMATED NEUTROPHIL # 9.5 TH/MM3 (1.8-7.7); BASOPHIL # 0.1 TH/MM3 (0-0.2); BASOPHIL % 0.8 % (0.0-2.0); EOSINOPHIL # 1.5 TH/MM3 (0-0.4); EOSINOPHIL % 10.2 % (0.0-4.0); HEMATOCRIT 42.4 % (39.0-51.0); HEMOGLOBIN 14.7 GM/DL (13.0-17.0); LYMPH % 15.7 % (9.0-44.0); LYMPHOCYTE # 2.3 TH/MM3 (1.0-4.8); MEAN CELL VOLUME 94.4 FL (80.0-100.0); MEAN CORPUSCULAR HEMOGLOBIN 32.7 PG (27.0-34.0); MEAN CORPUSCULAR HGB CONC 34.6 % (32.0-36.0); MEAN PLATELET VOLUME 7.8 FL (7.0-11.0); MONO % 9.6 % (0.0-8.0); MONOCYTE # 1.4 TH/MM3 (0-0.9); NEUT % 63.7 % (16.0-70.0); PLATELET COUNT 276 TH/MM3 (150-450); RED BLOOD COUNT 4.49 MIL/MM3 (4.50-5.90); RED CELL DISTRIBUTION WIDTH 13.8 % (11.6-17.2); WHITE BLOOD COUNT 14.9 TH/MM3 (4.0-11.0)
[2017-12-23 04:23] LABS: BICARBONATE 29.2 MEQ/L (21.0-32.0); CALCIUM 8.7 MG/DL (8.5-10.1); CREATININE 0.93 MG/DL (0.60-1.30)
[2017-12-23 05:58] LABS: BANDS 9 % (0-6); LYMPHOCYTES 24 % (9-44); METAMYELOCYTES 1 % (0-1); MONOCYTES 3 % (0-8); MYELOCYTES 1 % (0-0); NEUTROPHIL # MANUAL DIFF 9.2 TH/MM3 (1.8-7.7); POLYS (SEG NEUTROPHILS) 51 % (16-70)
--- NOTE | 2017-12-23 06:44 | PD.ORT.PN ---
Subjective Subjective Remarks POD 6 s/p I&D with wound closure and exfix left distal tibia doing well. reports pain controlled. resting comfortably Objective Vitals Vital Signs Date Time Temp Pulse Resp B/P (MAP) Pulse Ox O2 Delivery O2 Flow Rate FiO2 12/23/17 00:07 98.8 78 18 121/80 (94) 97 12/22/17 18:27 97.7 83 138/68 (91) 96 12/22/17 16:00 97.8 71 18 141/78 (99) 95 12/22/17 12:00 97.3 94 18 153/74 (100) 98 12/22/17 08:00 97.7 66 18 133/74 (93) 95 12/22/17 07:44 Room Air I/O 12/22/17 12/22/17 12/22/17 12/23/17 12/23/17 12/23/17 07:00 15:00 23:00 07:00 15:00 23:00 Intake Total 871.2 ml 720 ml 511.2 ml Output Total 650 ml Balance 871.2 ml 70 ml 511.2 ml Intake Oral 360 ml 720 ml IV Total 511.2 ml 511.2 ml Output Urine Total 650 ml # Voids 3 1 2 # Bowel Movements 1 2 Result Diagram: 12/23/17 0342 12/23/17 0342 Imaging Last 24 hours Impressions Pelvis X-Ray 12/17/171946 Signed Impressions: Service Date/Time: December 19:38 - CONCLUSION: Normal examination for a patient of this age. Garo Foreman MD Maxillofacial CT 12/17/171946 Signed Impressions: Service Date/Time: December 19:50 - CONCLUSION: 1. Pansinus mucosal thickening with partial opacification of the ethmoids and maxillary sinuses. Garo Foreman MD Head CT 12/17/171946 Signed Impressions: Service Date/Time: December 19:50 - CONCLUSION: 1. No acute intracranial abnormalities. Paranasal sinus disease. Garo Foreman MD Chest X-Ray 12/17/171946 Signed Impressions: Service Date/Time: December 19:38 - CONCLUSION: No acute disease. Garo Foreman MD Chest CT 12/17/171946 Signed Impressions: Service Date/Time: December 19:57 - CONCLUSION: 1. Negative for acute traumatic injury within the thorax. Scattered post inflammatory changes in the lungs with several tiny sub-3 mm nodules. Garo Foreman MD Cervical Spine CT 12/17/171946 Signed Impressions: Service Date/Time: December 19:50 - CONCLUSION: Normal examination for a patient of this age. Garo Foreman MD Abdomen/Pelvis CT 12/17/171946 Signed Impressions: Service Date/Time: December 19:57 - CONCLUSION: Negative for acute traumatic injury within the abdomen and pelvis. Garo Foreman MD Objective Remarks Left lower extremity: Dressing changed with no drainage. Current dressing is C/ D/I. External fixator in place. Good capillary refills in distal pulses. Minimal swelling. Assessment & Plan Assessment and Plan 1) Open Left distal Tibia Fx s/p I&D and revision of exfix - POD 6 -NWB -pin care BID -Elevation and ice -convert dressing over traumatic injury to 4x4 and medipore tape. avoid any constrictive elda wraps -swelling still too great for surgery -continnue daily dressing changes -will re-eval for surgery /thursday -resume diet Kamaljit Grant/[employer] Dec 23, 2017 06:44
[2017-12-23] MEDS ORDERED: POTASSIUM CHLORIDE 20 MEQ CONTROLLED RELEASE TAB PO ONE (07:45)
[2017-12-23 08:00] VITALS: BP 123/83; PULSE 83; RESP 17; TEMP 97.8; O2SAT 95
[2017-12-23] MEDS: GABAPENTIN 300 MG CAP PO SCH ×3 (08:34→17:39)
[2017-12-23] MEDS: DOCUSATE SODIUM 50 MG/SENNA 8.6 MG TAB PO SCH ×2 (08:34→20:25)
[2017-12-23] MEDS: FAMOTIDINE 20 MG TAB PO SCH ×2 (08:34→20:04)
[2017-12-23] MEDS: LACTULOSE SYRUP 20 GM/30 ML CUP PO SCH (08:35)
[2017-12-23] MEDS: BACITRACIN TOP OINT 15 GM TUBE TOP SCH ×2 (08:35→20:25)
[2017-12-23] MEDS: SODIUM CHLORIDE 0.9% FLUSH 10 ML FLUSH IV FLUSH SCH ×2 (08:35→20:25)
--- NOTE | 2017-12-23 11:54 | HHI.PR ---
Subjective Subjective Notes PTD: 6 Pt is sitting up in bed. No distress noted. Patient states his pain has been, "up and down and all around." Patient is waiting to return to OR for ex-fix removal - possibly Thursday. "I missed my sisters viewing because of this." Objective Vitals/I&O Vital Signs Date Time Temp Pulse Resp B/P (MAP) Pulse Ox O2 Delivery O2 Flow Rate FiO2 12/23/17 08:00 97.8 83 17 123/83 (96) 95 12/22/17 07:44 Room Air 12/21/17 12:34 21 Labs Laboratory Tests Test 12/23/17 03:42 White Blood Count 14.9 Red Blood Count 4.49 Hemoglobin 14.7 Hematocrit 42.4 Mean Corpuscular Volume 94.4 Mean Corpuscular Hemoglobin 32.7 Mean Corpuscular Hemoglobin Concent 34.6 Red Cell Distribution Width 13.8 Platelet Count 276 Mean Platelet Volume 7.8 Neutrophils (%) (Auto) 63.7 Lymphocytes (%) (Auto) 15.7 Monocytes (%) (Auto) 9.6 Eosinophils (%) (Auto) 10.2 Basophils (%) (Auto) 0.8 Neutrophils # (Auto) 9.5 Lymphocytes # (Auto) 2.3 Monocytes # (Auto) 1.4 Eosinophils # (Auto) 1.5 Basophils # (Auto) 0.1 CBC Comment AUTO DIFF Differential Total Cells Counted 100 Neutrophils % (Manual) 51 Band Neutrophils % 9 Lymphocytes % 24 Monocytes % 3 Eosinophils % 11 Neutrophils # (Manual) 9.2 Metamyelocytes 1 Myelocytes 1 Differential Comment FINAL DIFF MANUAL Platelet Estimate NORMAL Platelet Morphology Comment NORMAL Red Cell Morphology Comment NORMAL Blood Urea Nitrogen 17 Creatinine 0.93 Random Glucose 106 Calcium Level 8.7 Sodium Level 139 Potassium Level 4.5 Chloride Level 103 Carbon Dioxide Level 29.2 Anion Gap 7 Estimat Glomerular Filtration Rate 91 Narrative Exam GENERAL: This is a 37 year old male lying in bed in no acute distress. SKIN: Warm and dry. HEAD: Atraumatic. Normocephalic. EYES: PERRLA ENT: No nasal bleeding or discharge. Mucous membranes pink and moist. NECK: Trachea midline. No JVD. CARDIOVASCULAR: Regular rate and rhythm. RESPIRATORY: No accessory muscle use. Lungs are clear to auscultation. Breath sounds equal bilaterally. No distress or dyspnea. GASTROINTESTINAL: BS + x 4 quads. Abdomen soft, non-tender, nondistended. MUSCULOSKELETAL: Extremities without cyanosis, or edema. LEFT lower extremity ex-fix in place. Pin sites intact. Ecchymosis noted to LEFT calf. Dressing in place to LEFT miller with Primapore. + peripheral pulses x 4 extremities. Warm with good capillary refill and sensation. MAEW. NEUROLOGICAL: Awake and alert. Normal speech and pattern. A/P Problem List: (1) Fall ICD Codes: W19.XXXA - Unspecified fall, initial encounter Status: Acute (2) Left calcaneal fracture ICD Codes: S92.002A - Unspecified fracture of left calcaneus, initial encounter for closed fracture Status: Acute (3) Lung nodule, multiple ICD Codes: R91.8 - Other nonspecific abnormal finding of lung field Status: Acute (4) Fracture of tibia with fibula, left, open ICD Codes: S82.402B - Unspecified fracture of shaft of left fibula, initial encounter for open fracture type I or II; S82.202B - Unspecified fracture of shaft of left tibia, initial encounter for open fracture type I or II Status: Acute Assessment and Plan [place]: This is a 37-year-old male who allegedly fell from 5 feet onto his left leg. EtOH 181. Found down by a passerby and brought to the ER. He was transferred from an outside facility for trauma services. INJURIES: Road rash Open LEFT tib/fib fx LEFT calcaneus fx Incidental lung nodules PMHx: 1 PPD smoker, ETOH Procedures: 12/17: I&D, placement of ex-fix LEFT leg 12/18: Closed reduction and revision of ex-fix LEFT. 12/24-12/25: Return to OR with ortho??? Consults: Orthopedics. Case management. Diet: Regular diet. Tolerating po diet. Encourage good po intake with each meal. Pulmonary: Encourage good pulmonary toileting. IS at bedside and pt encouraged to use. Rationale for use explained to patient, and verbalized understanding. PAIN Management: [place] 10mg q 3h. Morphine 4mg q 3h. Neurontin 300 mg TID. Activity: OOB. PT and OT ordered. (NWB LLE) GI prophylaxis: Pepcid 20 mg po BID. Bowel regimen: Penny-colace. MOM. Lactulose. Senna PRN. Bisacodyl PRN. LBM 12/23 DVT prophylaxis: Mechanical VTE with SCDs. Chemical management with Lovenox 30 mg BID SQ. DC Planning: Case management consulted for assistance with final discharge disposition. Emotional support provided to family at bedside and plan of care discussed. Discussed with RN at bedside. Discussed pt condition and plan of care with collaborating trauma surgeon. Patient is hemodynamically stable and being managed on the med/surg floor. The trauma team will round each day, and evaluate plan of care on a daily basis. Road rash Wash daily and gently with soap and water. Pat dry. Apply bacitracin twice a day Open LEFT tib/fib fx LEFT calcaneus fx Orthopedics consulted and assisting in management and care 12/17: I&D, placement of external fixation left leg 12/18: Closed reduction and revision of external fixation Supportive care Pain control Bowel regimen Pin care BID per orthopedics Abx per Orthopedics: Vanco and Ancef - now complete Orthopedics tentatively planning surgery Thurs/Fri Encourage out of bed PT and OT ordered NWB LLE Remarks Patient seen and examined with the nurse practitioner, overall stable from general trauma stand point, awaiting orthopedic surgery plan Problem Qualifiers (1) Fall: Qualified Codes: W19.XXXA - Unspecified fall, initial encounter (2) Left calcaneal fracture: Qualified Codes: S92.002A - Unspecified fracture of left calcaneus, initial encounter for closed fracture (3) Fracture of tibia with fibula, left, open: Qualified Codes: S82.202C - Unspecified fracture of shaft of left tibia, initial encounter for open fracture type IIIA, IIIB, or IIIC; S82.402C - Unspecified fracture of shaft of left fibula, initial encounter for open fracture type IIIA, IIIB, or IIIC Connie Reyes Dec 23, 2017 11:54 Lindsay Randall MD Dec 23, 2017 15:06
[2017-12-23 12:00] VITALS: BP 123/56; PULSE 87; RESP 18; TEMP 98.2; O2SAT 95
[2017-12-23] MEDS: ENOXAPARIN SODIUM 30 MG/0.3 ML SYRINGE SQ SCH ×2 (13:06→22:29)
[2017-12-23 16:00] VITALS: BP 125/87; PULSE 97; RESP 18; TEMP 97.5; O2SAT 96
[2017-12-23] MEDS ORDERED: POTASSIUM CHLORIDE 10 MEQ CONTROLLED RELEASE TAB PO ONE (18:00)
[2017-12-23 20:00] VITALS: BP 122/78; PULSE 85; RESP 18; TEMP 97.6; O2SAT 96
[2017-12-23] MEDS: MULTIVITAMIN INJ 10 ML, THIAMINE INJ 100 MG, FOLIC ACID INJ 1 MG in SODIUM CHLORID 0.9%... IV SCH (22:59)
[2017-12-23 23:53] VITALS: BP 130/78; PULSE 87; RESP 18; TEMP 97.9; O2SAT 98
[2017-12-24] MEDS: ACETAMINOPHEN/HYDROcodone 325 MG/10 MG TAB PO PRN ×6 (02:02→23:21)
[2017-12-24 04:00] VITALS: BP 138/86; PULSE 81; RESP 18; TEMP 97.4; O2SAT 96
[2017-12-24] MEDS ORDERED: MAGN30S PO (07:13)
[2017-12-24] MEDS ORDERED: PERI PO (07:13)
[2017-12-24] MEDS ORDERED: CRUTMIS35 (07:15)
[2017-12-24 08:00] VITALS: BP 126/75; PULSE 72; RESP 18; TEMP 97.6; O2SAT 98
--- NOTE | 2017-12-24 08:32 | PD.ORT.PN ---
Subjective Subjective Remarks Pain controlled and continuing to elevate leg. Does have new complaint of left wrist and scaphoid pain Objective Vitals Vital Signs Date Time Temp Pulse Resp B/P (MAP) Pulse Ox O2 Delivery O2 Flow Rate FiO2 12/24/17 04:00 97.4 81 18 138/86 (103) 96 12/23/17 23:53 97.9 87 18 130/78 (95) 98 12/23/17 20:00 97.6 85 18 122/78 (93) 96 12/23/17 16:00 97.5 97 18 125/87 (100) 96 12/23/17 12:00 98.2 87 18 123/56 (78) 95 I/O 12/23/17 12/23/17 12/23/17 12/24/17 12/24/17 12/24/17 07:00 15:00 23:00 07:00 15:00 23:00 Intake Total 511.2 ml 960 ml 860 ml Output Total 1400 ml Balance 511.2 ml 960 ml -540 ml Intake Oral 960 ml 860 ml IV Total 511.2 ml Output Urine Total 1400 ml # Voids 2 3 3 # Bowel Movements 3 2 Result Diagram: 12/23/17 0342 12/23/17 0342 Imaging Last 24 hours Impressions Pelvis X-Ray 12/17/171946 Signed Impressions: Service Date/Time: December 19:38 - CONCLUSION: Normal examination for a patient of this age. Garo Foreman MD Maxillofacial CT 12/17/171946 Signed Impressions: Service Date/Time: December 19:50 - CONCLUSION: 1. Pansinus mucosal thickening with partial opacification of the ethmoids and maxillary sinuses. Garo Foreman MD Head CT 12/17/171946 Signed Impressions: Service Date/Time: December 19:50 - CONCLUSION: 1. No acute intracranial abnormalities. Paranasal sinus disease. Garo Foreman MD Chest X-Ray 12/17/171946 Signed Impressions: Service Date/Time: December 19:38 - CONCLUSION: No acute disease. Garo Foreman MD Chest CT 12/17/171946 Signed Impressions: Service Date/Time: December 19:57 - CONCLUSION: 1. Negative for acute traumatic injury within the thorax. Scattered post inflammatory changes in the lungs with several tiny sub-3 mm nodules. Garo Foreman MD Cervical Spine CT 12/17/171946 Signed Impressions: Service Date/Time: December 19:50 - CONCLUSION: Normal examination for a patient of this age. Garo Foreman MD Abdomen/Pelvis CT 12/17/171946 Signed Impressions: Service Date/Time: December 19:57 - CONCLUSION: Negative for acute traumatic injury within the abdomen and pelvis. Garo Foreman MD Objective Remarks Left lower extremity: Dressing changed with no drainage. Incision approximated. No erythema. Swelling a +[address] Good capillary refills in distal pulses. Minimal swelling. Left upper extremity: No pain with shoulder elbow range of motion. He has tenderness over the scaphoid. Skin is intact with mild swelling. Distally intact sensation over the radial ulnar and median nerve distributions good capillary refills. He is able fully extend his fingers make a fist Assessment & Plan Assessment and Plan 1) Open Left distal Tibia Fx s/p I&D and revision of exfix - POD 7 -NWB -pin care BID -Elevation and ice -convert dressing over traumatic injury to xeroform, 4x4 and medipore tape. avoid any constrictive elda wraps -swelling still too great for surgery -continue daily dressing changes -will hopefully be ready for surgery Thursday or Thursday -resume diet X-ray today left wrist 3 views Akbar Luna Jr. Dec 24, 2017 08:32
[2017-12-24] MEDS: GABAPENTIN 300 MG CAP PO SCH ×3 (08:57→18:00)
[2017-12-24] MEDS: FAMOTIDINE 20 MG TAB PO SCH ×2 (08:58→21:25)
[2017-12-24] MEDS: LACTULOSE SYRUP 20 GM/30 ML CUP PO SCH (09:00)
[2017-12-24] MEDS: DOCUSATE SODIUM 50 MG/SENNA 8.6 MG TAB PO SCH ×2 (09:00→21:25)
[2017-12-24] MEDS: SODIUM CHLORIDE 0.9% FLUSH 10 ML FLUSH IV FLUSH SCH ×2 (09:01→21:25)
[2017-12-24] MEDS: BACITRACIN TOP OINT 15 GM TUBE TOP SCH ×2 (09:02→21:26)
--- NOTE | 2017-12-24 10:18 | RADRPT ---
EXAM DATE/TIME: 12/24/2017 08:27 [facility] COMPARISON: No previous studies available for comparison. INDICATIONS : Fall, complains of left wrist pain. MEDICAL HISTORY : None. SURGICAL HISTORY : None. ENCOUNTER: Initial ACUITY: 4 - 6 days PAIN SCORE: 6/10 LOCATION: Left wrist FINDINGS: Three view examination of the left wrist demonstrates no soft tissue swelling, dislocation, or fractu re. The carpal bones are in normal alignment. The joint spaces are maintained. Bony mineralization is normal. CONCLUSION: No acute disease. Kailash Kim MD on December 24, 2017 at 10:15 Board Certified Radiologist. This report was verified electronically.
[2017-12-24] MEDS: MAGNESIUM HYDROXIDE SUSP 30 ML CUP PO SCH ×2 (10:56→22:31)
--- NOTE | 2017-12-24 11:58 | HHI.PR ---
Subjective Subjective Notes PTD: 7 Pt lying in bed. No distress noted. Asleep on trauma rounds. Objective Vitals/I&O Vital Signs Date Time Temp Pulse Resp B/P (MAP) Pulse Ox O2 Delivery O2 Flow Rate FiO2 12/24/17 08:00 97.6 72 18 126/75 (92) 98 12/22/17 07:44 Room Air 12/21/17 12:34 21 Radiology Last 24 hours Impressions Wrist X-Ray 12/24/17 0000 Signed Impressions: Service Date/Time: December 08:27 - CONCLUSION: No acute disease. Kailash Kim MD Narrative Exam GENERAL: This is a 37 year old male lying in bed in no acute distress - asleep. SKIN: Warm and dry. HEAD: Atraumatic. Normocephalic. EYES: PERRLA ENT: No nasal bleeding or discharge. Mucous membranes pink and moist. NECK: Trachea midline. No JVD. CARDIOVASCULAR: Regular rate and rhythm. RESPIRATORY: No accessory muscle use. Lungs are clear to auscultation. Breath sounds equal bilaterally. No distress or dyspnea. GASTROINTESTINAL: BS + x 4 quads. Abdomen soft, non-tender, nondistended. MUSCULOSKELETAL: Extremities without cyanosis, or edema. LEFT lower extremity ex-fix in place. Pin sites intact. Ecchymosis noted to LEFT calf. Dressing in place to LEFT miller with Primapore. + peripheral pulses x 4 extremities. Warm with good capillary refill and sensation. MAEW. NEUROLOGICAL: Asleep. A/P Problem List: (1) Fall ICD Codes: W19.XXXA - Unspecified fall, initial encounter Status: Acute (2) Left calcaneal fracture ICD Codes: S92.002A - Unspecified fracture of left calcaneus, initial encounter for closed fracture Status: Acute (3) Lung nodule, multiple ICD Codes: R91.8 - Other nonspecific abnormal finding of lung field Status: Acute (4) Fracture of tibia with fibula, left, open ICD Codes: S82.402B - Unspecified fracture of shaft of left fibula, initial encounter for open fracture type I or II; S82.B - Unspecified fracture of shaft of left tibia, initial encounter for open fracture type I or II Status: Acute Assessment and Plan [place]: This is a 37-year-old male who allegedly fell from 5 feet onto his left leg. EtOH 181. Found down by a passerby and brought to the ER. He was transferred from an outside facility for trauma services. INJURIES: Road rash Open LEFT tib/fib fx LEFT calcaneus fx Incidental lung nodules PMHx: 1 PPD smoker, ETOH Procedures: 12/17: I&D, placement of ex-fix LEFT leg 12/18: Closed reduction and revision of ex-fix LEFT. 12/27-: Return to OR with ortho??? Consults: Orthopedics. Case management. Diet: Regular diet. Tolerating po diet. Encourage good po intake with each meal. Pulmonary: Encourage good pulmonary toileting. IS at bedside and pt encouraged to use. Rationale for use explained to patient, and verbalized understanding. PAIN Management: [place] 10mg q 3h. Morphine 4mg q 3h. Neurontin 300 mg TID. Activity: OOB. PT and OT ordered. (NWBruno LLE) GI prophylaxis: Pepcid 20 mg po BID. Bowel regimen: Penny-colace. MOM. Lactulose. Senna PRN. Bisacodyl PRN. LBM . DVT prophylaxis: Mechanical VTE with SCDs. Chemical management with Lovenox 30 mg BID SQ. DC Planning: Case management consulted for assistance with final discharge disposition. Still awaiting another surgery with Ortho - possibly next Thursday or Thursday. Emotional support provided to patient at bedside and plan of care discussed. Discussed with RN at bedside. Discussed pt condition and plan of care with collaborating trauma surgeon. Patient is hemodynamically stable and being managed on the med/surg floor. The trauma team will round each day, and evaluate plan of care on a daily basis. Road rash Wash daily and gently with soap and water. Pat dry. Apply bacitracin twice a day Open LEFT tib/fib fx LEFT calcaneus fx Orthopedics consulted and assisting in management and care 12/17: I&D, placement of external fixation left leg 12/18: Closed reduction and revision of external fixation Orthopedics tentatively planning surgery Thursday or Thursday Supportive care Pain control Bowel regimen Pin care BID per orthopedics Abx per Orthopedics: Vanco and Ancef - now complete Encourage out of bed PT and OT ordered NWB LLE Remarks Seen and examined the nurse practitioner, resting comfortably during trauma rounds, orthopedic plan is noted, continue current treatment Problem Qualifiers (1) Fall: Qualified Codes: W19.XXXA - Unspecified fall, initial encounter (2) Left calcaneal fracture: Qualified Codes: S92.002A - Unspecified fracture of left calcaneus, initial encounter for closed fracture (3) Fracture of tibia with fibula, left, open: Qualified Codes: S82.202C - Unspecified fracture of shaft of left tibia, initial encounter for open fracture type IIIA, IIIB, or IIIC; S82.402C - Unspecified fracture of shaft of left fibula, initial encounter for open fracture type IIIA, IIIB, or IIIC Connie Reyes Dec 24, 2017 11:58 Lindsay Randall MD Dec 26, 2017 15:30
[2017-12-24 12:00] VITALS: BP 133/79; PULSE 76; RESP 18; TEMP 97.7; O2SAT 98
[2017-12-24] MEDS: ENOXAPARIN SODIUM 30 MG/0.3 ML SYRINGE SQ SCH (15:40)
[2017-12-24 16:00] VITALS: BP 139/92; PULSE 70; RESP 18; TEMP 97; O2SAT 98
[2017-12-24 20:00] VITALS: BP 130/67; PULSE 80; RESP 18; TEMP 98.2; O2SAT 97
[2017-12-24] MEDS: MORPHINE SULFATE 4 MG/ML INJ IV PUSH PRN (21:25)
[2017-12-24] MEDS: MULTIVITAMIN INJ 10 ML, THIAMINE INJ 100 MG, FOLIC ACID INJ 1 MG in SODIUM CHLORID 0.9%... IV SCH (23:31)
[2017-12-25] VITALS: BP 150/86; PULSE 79; RESP 18; TEMP 98.2; O2SAT 99
[2017-12-25] MEDS: ENOXAPARIN SODIUM 30 MG/0.3 ML SYRINGE SQ SCH ×2 (02:10→15:31)
[2017-12-25] MEDS: ACETAMINOPHEN/HYDROcodone 325 MG/10 MG TAB PO PRN ×5 (02:36→21:54)
[2017-12-25 03:49] VITALS: BP 129/99; PULSE 87; RESP 18; TEMP 98.6; O2SAT 96
--- NOTE | 2017-12-25 06:44 | PD.ORT.PN ---
Subjective Subjective Remarks POd 8 s/p I&D with wound closure and exfix left distal tibia doing well. reports pain controlled. resting comfortably Objective Vitals Vital Signs Date Time Temp Pulse Resp B/P (MAP) Pulse Ox O2 Delivery O2 Flow Rate FiO2 12/25/17 03:49 98.6 87 18 129/99 (109) 96 12/25/17 03:36 18 12/25/17 00:00 98.2 79 18 150/86 (107) 99 12/24/17 22:13 Room Air 12/24/17 21:34 18 12/24/17 20:00 98.2 80 18 130/67 (88) 97 12/24/17 16:00 97.0 70 18 139/92 (108) 98 12/24/17 12:00 97.7 76 18 133/79 (97) 98 12/24/17 08:00 97.6 72 18 126/75 (92) 98 I/O 12/24/17 12/24/17 12/24/17 12/25/17 12/25/17 12/25/17 07:00 15:00 23:00 07:00 15:00 23:00 Intake Total 860 ml 960 ml 1231.2 ml Output Total 1400 ml Balance -540 ml 960 ml 1231.2 ml Intake Oral 860 ml 960 ml 720 ml IV Total 511.2 ml Output Urine Total 1400 ml # Voids 3 5 4 # Bowel Movements 2 2 0 Result Diagram: 12/23/17 0342 12/23/17 0342 Imaging Last 24 hours Impressions Pelvis X-Ray 12/17/171946 Signed Impressions: Service Date/Time: December 19:38 - CONCLUSION: Normal examination for a patient of this age. Garo Foreman MD Maxillofacial CT 12/17/171946 Signed Impressions: Service Date/Time: December 19:50 - CONCLUSION: 1. Pansinus mucosal thickening with partial opacification of the ethmoids and maxillary sinuses. Garo Foreman MD Head CT 12/17/171946 Signed Impressions: Service Date/Time: December 19:50 - CONCLUSION: 1. No acute intracranial abnormalities. Paranasal sinus disease. Garo Foreman MD Chest X-Ray 12/17/171946 Signed Impressions: Service Date/Time: December 19:38 - CONCLUSION: No acute disease. Garo Foreman MD Chest CT 12/17/171946 Signed Impressions: Service Date/Time: December 19:57 - CONCLUSION: 1. Negative for acute traumatic injury within the thorax. Scattered post inflammatory changes in the lungs with several tiny sub-3 mm nodules. Garo Foreman MD Cervical Spine CT 12/17/171946 Signed Impressions: Service Date/Time: December 19:50 - CONCLUSION: Normal examination for a patient of this age. Garo Foreman MD Abdomen/Pelvis CT 12/17/171946 Signed Impressions: Service Date/Time: December 19:57 - CONCLUSION: Negative for acute traumatic injury within the abdomen and pelvis. Garo Foreman MD Objective Remarks Left lower extremity: Dressing changed with no drainage. Incision approximated. No erythema. Swelling a +[address] Good capillary refills in distal pulses. Minimal swelling. Left upper extremity: No pain with shoulder elbow range of motion. He has tenderness over the scaphoid. Skin is intact with mild swelling. Distally intact sensation over the radial ulnar and median nerve distributions good capillary refills. He is able fully extend his fingers make a fist Assessment & Plan Assessment and Plan 1) Open Left distal Tibia Fx s/p I&D and revision of exfix - POD 8 -NWB -pin care BID -Elevation and ice -convert dressing over traumatic injury to xeroform, 4x4 and medipore tape. avoid any constrictive elda wraps -swelling still too great for surgery -continue daily dressing changes -will hopefully be ready for surgery Thursday or Thursday -resume diet X-ray today left wrist 3 views Kamaljit Grant/First Daniella ARNETT Dec 25, 2017 06:44
[2017-12-25] MEDS: KETOROLAC TROMETHAMINE 30 MG/ML (IVP) VIAL IV PUSH SCH ×4 (07:17→23:44)
[2017-12-25 08:00] VITALS: BP 147/97; PULSE 76; RESP 18; TEMP 97.6; O2SAT 98
[2017-12-25] MEDS: LACTULOSE SYRUP 20 GM/30 ML CUP PO SCH (09:00)
[2017-12-25] MEDS: DOCUSATE SODIUM 50 MG/SENNA 8.6 MG TAB PO SCH ×2 (09:00→21:54)
[2017-12-25] MEDS: FAMOTIDINE 20 MG TAB PO SCH ×2 (09:14→21:54)
[2017-12-25] MEDS: GABAPENTIN 300 MG CAP PO SCH ×3 (09:14→18:00)
[2017-12-25] MEDS: SODIUM CHLORIDE 0.9% FLUSH 10 ML FLUSH IV FLUSH SCH ×2 (09:16→21:53)
[2017-12-25] MEDS: BACITRACIN TOP OINT 15 GM TUBE TOP SCH ×2 (09:16→21:55)
[2017-12-25] MEDS: MAGNESIUM HYDROXIDE SUSP 30 ML CUP PO SCH ×2 (11:00→21:55)
[2017-12-25 12:00] VITALS: BP 133/75; PULSE 81; RESP 18; TEMP 97.4; O2SAT 97
--- NOTE | 2017-12-25 12:03 | HHI.PR ---
Subjective Subjective Notes PTD: 7 Pt lying in bed. No distress noted. "It keeps swelling up." "My pain will go up for a few minutes and is off the chart, then it slowly moved back down." "I want to go home, I have 3 kids at home. But I know I have to stay. I do not want to lose my leg." Objective Vitals/I&O Vital Signs Date Time Temp Pulse Resp B/P (MAP) Pulse Ox O2 Delivery O2 Flow Rate FiO2 12/25/17 08:00 97.6 76 18 147/97 (114) 98 12/24/17 22:13 Room Air 12/21/17 12:34 21 Narrative Exam GENERAL: This is a 37 year old male lying in bed in no acute distress. SKIN: Warm and dry. HEAD: Atraumatic. Normocephalic. EYES: PERRLA ENT: No nasal bleeding or discharge. Mucous membranes pink and moist. NECK: Trachea midline. No JVD. CARDIOVASCULAR: Regular rate and rhythm. RESPIRATORY: No accessory muscle use. Lungs are clear to auscultation. Breath sounds equal bilaterally. No distress or dyspnea. GASTROINTESTINAL: BS + x 4 quads. Abdomen soft, non-tender, nondistended. MUSCULOSKELETAL: Extremities without cyanosis, or edema. LEFT lower extremity ex-fix in place. Pin sites intact. Ecchymosis noted to LEFT calf. Dressing in place to LEFT miller with 4x4 and tape + peripheral pulses x 4 extremities. Warm with good capillary refill and sensation. MAEW. NEUROLOGICAL: Alert and oriented. Normal speech and pattern. A/P Problem List: (1) Fall ICD Codes: W19.XXXA - Unspecified fall, initial encounter Status: Acute (2) Left calcaneal fracture ICD Codes: S92.002A - Unspecified fracture of left calcaneus, initial encounter for closed fracture Status: Acute (3) Lung nodule, multiple ICD Codes: R91.8 - Other nonspecific abnormal finding of lung field Status: Acute (4) Fracture of tibia with fibula, left, open ICD Codes: S82.402B - Unspecified fracture of shaft of left fibula, initial encounter for open fracture type I or II; S82.B - Unspecified fracture of shaft of left tibia, initial encounter for open fracture type I or II Status: Acute Assessment and Plan [facility] [place]: This is a 37-year-old male who allegedly fell from 5 feet onto his left leg. EtOH 181. Found down by a passerby and brought to the ER. He was transferred from an outside facility for trauma services. INJURIES: Road rash Open LEFT tib/fib fx LEFT calcaneus fx Incidental lung nodules PMHx: 1 PPD smoker, ETOH Procedures: 12/17: I&D, placement of ex-fix LEFT leg 12/18: Closed reduction and revision of ex-fix LEFT. 12/27-: Return to OR with ortho??? Consults: Orthopedics. Case management. Diet: Regular diet. Tolerating po diet. Encourage good po intake with each meal. Pulmonary: Encourage good pulmonary toileting. IS at bedside and pt encouraged to use. Rationale for use explained to patient, and verbalized understanding. PAIN Management: [place] 10mg q 3h. Morphine 4mg q 3h. Neurontin 300 mg TID. Toradol 15 mg every 6 hours 24 hours. Activity: OOB. PT and OT ordered. (NWBruno LLE) GI prophylaxis: Pepcid 20 mg po BID. Bowel regimen: Penny-colace. MOM. Lactulose. Senna PRN. Bisacodyl PRN. LBM . DVT prophylaxis: Mechanical VTE with SCDs. Chemical management with Lovenox 30 mg BID SQ. DC Planning: Case management consulted for assistance with final discharge disposition. Still awaiting another surgery with Ortho - possibly next Thursday or Thursday. Emotional support provided to patient at bedside and plan of care discussed. Discussed with RN at bedside. Discussed pt condition and plan of care with collaborating trauma surgeon. Patient is hemodynamically stable and being managed on the med/surg floor. The trauma team will round each day, and evaluate plan of care on a daily basis. Road rash Wash daily and gently with soap and water. Pat dry. Apply bacitracin twice a day Open LEFT tib/fib fx LEFT calcaneus fx Orthopedics consulted and assisting in management and care 12/17: I&D, placement of external fixation left leg 12/18: Closed reduction and revision of external fixation Orthopedics tentatively planning surgery Thursday or Thursday Supportive care Pain control Bowel regimen Pin care BID per orthopedics Abx per Orthopedics: Vanco and Ancef - now complete Encourage out of bed PT and OT ordered NWB LLE The exam, history, and the medical decision-making described in the above note were completed with the assistance of the mid-level provider. I reviewed and agree with the findings presented. I attest that I had a [id number] encounter with the patient on the same day, and personally performed and documented my assessment and findings in the medical record. Problem Qualifiers (1) Fall: Qualified Codes: W19.XXXA - Unspecified fall, initial encounter (2) Left calcaneal fracture: Qualified Codes: S92.002A - Unspecified fracture of left calcaneus, initial encounter for closed fracture (3) Fracture of tibia with fibula, left, open: Qualified Codes: S82.202C - Unspecified fracture of shaft of left tibia, initial encounter for open fracture type IIIA, IIIB, or IIIC; S82.402C - Unspecified fracture of shaft of left fibula, initial encounter for open fracture type IIIA, IIIB, or IIIC Connie Reyes Dec 25, 2017 12:03 Nelson Reyes MD Dec 31, 2017 15:20
[2017-12-25 16:00] VITALS: BP 132/63; PULSE 83; RESP 18; TEMP 97.3; O2SAT 96
[2017-12-25 20:00] VITALS: BP 126/70; PULSE 80; RESP 18; TEMP 97.8; O2SAT 97
[2017-12-25] MEDS: MULTIVITAMIN INJ 10 ML, THIAMINE INJ 100 MG, FOLIC ACID INJ 1 MG in SODIUM CHLORID 0.9%... IV SCH (23:21)
[2017-12-26] VITALS: BP 146/82; PULSE 72; RESP 18; TEMP 97.5; O2SAT 98
[2017-12-26] MEDS: MORPHINE SULFATE 4 MG/ML INJ IV PUSH PRN ×2 (02:44→16:11)
[2017-12-26] MEDS: ENOXAPARIN SODIUM 30 MG/0.3 ML SYRINGE SQ SCH ×2 (02:45→14:19)
[2017-12-26] MEDS: KETOROLAC TROMETHAMINE 30 MG/ML (IVP) VIAL IV PUSH SCH ×2 (05:02→14:16)
[2017-12-26] MEDS: ACETAMINOPHEN/HYDROcodone 325 MG/10 MG TAB PO PRN ×5 (05:02→21:03)
[2017-12-26 07:44] VITALS: BP 130/75; PULSE 74; RESP 18; TEMP 97.4; O2SAT 98
[2017-12-26] MEDS: LACTULOSE SYRUP 20 GM/30 ML CUP PO SCH (08:52)
[2017-12-26] MEDS: SODIUM CHLORIDE 0.9% FLUSH 10 ML FLUSH IV FLUSH SCH ×2 (08:54→21:01)
[2017-12-26] MEDS: GABAPENTIN 300 MG CAP PO SCH ×3 (08:54→16:10)
[2017-12-26] MEDS: FAMOTIDINE 20 MG TAB PO SCH ×2 (08:54→21:01)
[2017-12-26] MEDS: DOCUSATE SODIUM 50 MG/SENNA 8.6 MG TAB PO SCH ×2 (08:58→21:00)
[2017-12-26] MEDS: BACITRACIN TOP OINT 15 GM TUBE TOP SCH ×2 (09:00→21:01)
--- NOTE | 2017-12-26 09:05 | HHI.PR ---
Subjective Subjective Notes PTD: 8 Pt sitting up in bed, talking on his cell phone. No distress noted. No C/o. Pt asking about "somebody said I have something on my lung." Objective Vitals/I&O Vital Signs Date Time Temp Pulse Resp B/P (MAP) Pulse Ox O2 Delivery O2 Flow Rate FiO2 12/26/17 07:44 97.4 74 18 130/75 (93) 98 12/25/17 22:45 Room Air Narrative Exam GENERAL: This is a 37 year old male lying in bed in no acute distress. SKIN: Warm and dry. HEAD: Atraumatic. Normocephalic. EYES: PERRLA ENT: No nasal bleeding or discharge. Mucous membranes pink and moist. NECK: Trachea midline. No JVD. CARDIOVASCULAR: Regular rate and rhythm. RESPIRATORY: No accessory muscle use. Lungs are clear to auscultation. Breath sounds equal bilaterally. No distress or dyspnea. GASTROINTESTINAL: BS + x 4 quads. Abdomen soft, non-tender, nondistended. MUSCULOSKELETAL: Extremities without cyanosis, or edema. LEFT lower extremity ex-fix in place. Pin sites intact. Elevated on a pillow. Ecchymosis noted to LEFT calf. Dressing in place to LEFT miller with 4x4 and tape + peripheral pulses x 4 extremities. Warm with good capillary refill and sensation. MAEW. NEUROLOGICAL: Alert and oriented. Normal speech and pattern. A/P Problem List: (1) Fall ICD Codes: W19.XXXA - Unspecified fall, initial encounter Status: Acute (2) Left calcaneal fracture ICD Codes: S92.002A - Unspecified fracture of left calcaneus, initial encounter for closed fracture Status: Acute (3) Lung nodule, multiple ICD Codes: R91.8 - Other nonspecific abnormal finding of lung field Status: Acute (4) Fracture of tibia with fibula, left, open ICD Codes: S82.402B - Unspecified fracture of shaft of left fibula, initial encounter for open fracture type I or II; S82.202B - Unspecified fracture of shaft of left tibia, initial encounter for open fracture type I or II Status: Acute Assessment and Plan [place]: This is a 37-year-old male who allegedly fell from 5 feet onto his left leg. EtOH 181. Found down by a passerby and brought to the ER. He was transferred from an outside facility for trauma services. INJURIES: Road rash Open LEFT tib/fib fx LEFT calcaneus fx Incidental lung nodules PMHx: 1 PPD smoker, ETOH Procedures: 12/17: I&D, placement of ex-fix LEFT leg 12/18: Closed reduction and revision of ex-fix LEFT. 12/27-: Return to OR with ortho??? Consults: Orthopedics. Case management. Diet: Regular diet. Tolerating po diet. Encourage good po intake with each meal. Pulmonary: Encourage good pulmonary toileting. IS at bedside and pt encouraged to use. Rationale for use explained to patient, and verbalized understanding. PAIN Management: [place] 10mg q 3h. Morphine 4mg q 3h. Neurontin 300 mg TID. Activity: OOB. PT and OT ordered. (NWB LLE) GI prophylaxis: Pepcid 20 mg po BID. Bowel regimen: Penny-colace. MOM. Lactulose. Senna PRN. Bisacodyl PRN. LBM . DVT prophylaxis: Mechanical VTE with SCDs. Chemical management with Lovenox 30 mg BID SQ. DC Planning: Case management consulted for assistance with final discharge disposition. Still awaiting another surgery with Ortho - possibly next Thursday or Thursday. Emotional support provided to patient at bedside and plan of care discussed. Discussed with RN at bedside. Discussed pt condition and plan of care with collaborating trauma surgeon. Patient is hemodynamically stable and being managed on the med/surg floor. The trauma team will round each day, and evaluate plan of care on a daily basis. Road rash Wash daily and gently with soap and water. Pat dry. Apply bacitracin twice a day Open LEFT tib/fib fx LEFT calcaneus fx Orthopedics consulted and assisting in management and care 12/17: I&D, placement of external fixation left leg 4/6: Closed reduction and revision of external fixation Orthopedics tentatively planning surgery Thursday or Thursday Supportive care Pain control Bowel regimen Pin care BID per orthopedics Abx per Orthopedics: Vanco and Ancef - now complete Encourage out of bed PT and OT ordered NWB LLE The exam, history, and the medical decision-making described in the above note were completed with the assistance of the mid-level provider. I reviewed and agree with the findings presented. I attest that I had a [id number] encounter with the patient on the same day, and personally performed and documented my assessment and findings in the medical record. Problem Qualifiers (1) Fall: Qualified Codes: W19.XXXA - Unspecified fall, initial encounter (2) Left calcaneal fracture: Qualified Codes: S92.002A - Unspecified fracture of left calcaneus, initial encounter for closed fracture (3) Fracture of tibia with fibula, left, open: Qualified Codes: S82.202C - Unspecified fracture of shaft of left tibia, initial encounter for open fracture type IIIA, IIIB, or IIIC; S82.402C - Unspecified fracture of shaft of left fibula, initial encounter for open fracture type IIIA, IIIB, or IIIC Connie Reyes Dec 26, 2017 09:05 Nelson Reyes MD Dec 31, 2017 15:26
[2017-12-26] MEDS: MAGNESIUM HYDROXIDE SUSP 30 ML CUP PO SCH ×2 (11:00→23:00)
[2017-12-26 12:00] VITALS: BP 152/89; PULSE 64; RESP 18; TEMP 97.3; O2SAT 100
[2017-12-26 16:07] VITALS: BP 127/74; PULSE 79; RESP 18; TEMP 97.4; O2SAT 95
[2017-12-26 20:00] VITALS: BP 142/96; PULSE 79; RESP 18; TEMP 98.2; O2SAT 97
[2017-12-26] MEDS: MULTIVITAMIN INJ 10 ML, THIAMINE INJ 100 MG, FOLIC ACID INJ 1 MG in SODIUM CHLORID 0.9%... IV SCH (23:53)
[2017-12-27] VITALS: BP 140/79; PULSE 79; RESP 18; TEMP 97.8; O2SAT 99
[2017-12-27] MEDS: ACETAMINOPHEN/HYDROcodone 325 MG/10 MG TAB PO PRN ×3 (00:04→07:54)
[2017-12-27] MEDS: ENOXAPARIN SODIUM 30 MG/0.3 ML SYRINGE SQ SCH ×2 (02:17→12:25)
[2017-12-27] MEDS: MORPHINE SULFATE 4 MG/ML INJ IV PUSH PRN ×2 (02:18→10:23)
[2017-12-27] MEDS: FAMOTIDINE 20 MG TAB PO SCH ×2 (07:54→20:20)
[2017-12-27] MEDS: GABAPENTIN 300 MG CAP PO SCH ×2 (07:55→12:14)
[2017-12-27] MEDS: LACTULOSE SYRUP 20 GM/30 ML CUP PO SCH (07:56)
[2017-12-27 08:00] VITALS: BP 126/75; PULSE 86; RESP 18; TEMP 98; O2SAT 97
[2017-12-27] MEDS: SODIUM CHLORIDE 0.9% FLUSH 10 ML FLUSH IV FLUSH SCH ×2 (08:03→20:20)
[2017-12-27] MEDS: BACITRACIN TOP OINT 15 GM TUBE TOP SCH ×2 (08:03→20:21)
[2017-12-27] MEDS: DOCUSATE SODIUM 50 MG/SENNA 8.6 MG TAB PO SCH ×2 (08:03→20:20)
[2017-12-27] MEDS: MAGNESIUM HYDROXIDE SUSP 30 ML CUP PO SCH ×2 (08:03→23:00)
--- NOTE | 2017-12-27 09:28 | HHI.PR ---
Subjective Subjective Notes PTD: 9 Patient OOB in a wheelchair. No distress noted. Patient complains of continued pain that comes and goes. "If you had a meter it would go all the way up." "My foot feels like it is asleep at times. It swells and then deflates." Objective Vitals/I&O Vital Signs Date Time Temp Pulse Resp B/P (MAP) Pulse Ox O2 Delivery O2 Flow Rate FiO2 12/27/17 08:00 98.0 86 18 126/75 (92) 97 12/26/17 09:03 Room Air Narrative Exam GENERAL: This is a 37 year old male OOB in a wheelchair. No distress noted.. SKIN: Warm and dry. HEAD: Atraumatic. Normocephalic. EYES: PERRLA ENT: No nasal bleeding or discharge. Mucous membranes pink and moist. NECK: Trachea midline. No JVD. CARDIOVASCULAR: Regular rate and rhythm. RESPIRATORY: No accessory muscle use. Lungs are clear to auscultation. Breath sounds equal bilaterally. No distress or dyspnea. GASTROINTESTINAL: BS + x 4 quads. Abdomen soft, non-tender, nondistended. MUSCULOSKELETAL: Extremities without cyanosis, or edema. LEFT lower extremity ex-fix in place. Pin sites intact. Elevated on a pillow. Ecchymosis noted to LEFT calf. Dressing in place to LEFT miller with 4x4 and tape + peripheral pulses x 4 extremities. Warm with good capillary refill and sensation. MAEW. NEUROLOGICAL: Alert and oriented. Normal speech and pattern. A/P Problem List: (1) Fall ICD Codes: W19.XXXA - Unspecified fall, initial encounter Status: Acute (2) Left calcaneal fracture ICD Codes: S92.002A - Unspecified fracture of left calcaneus, initial encounter for closed fracture Status: Acute (3) Lung nodule, multiple ICD Codes: R91.8 - Other nonspecific abnormal finding of lung field Status: Acute (4) Fracture of tibia with fibula, left, open ICD Codes: S82.402B - Unspecified fracture of shaft of left fibula, initial encounter for open fracture type I or II; S82.B - Unspecified fracture of shaft of left tibia, initial encounter for open fracture type I or II Status: Acute Assessment and Plan [place]: This is a 37-year-old male who allegedly fell from 5 feet onto his left leg. EtOH 181. Found down by a passerby and brought to the ER. He was transferred from an outside facility for trauma services. INJURIES: Road rash Open LEFT tib/fib fx LEFT calcaneus fx Incidental lung nodules PMHx: 1 PPD smoker, ETOH Procedures: 12/17: I&D, placement of ex-fix LEFT leg 12/18: Closed reduction and revision of ex-fix LEFT. 12/28-: Return to OR with ortho??? Consults: Orthopedics. Case management. Diet: Regular diet. Tolerating po diet. Encourage good po intake with each meal. Pulmonary: Encourage good pulmonary toileting. IS at bedside and pt encouraged to use. Rationale for use explained to patient, and verbalized understanding. PAIN Management: DC [place]. Changed to Oxycodone 5-10mg q 4h. Morphine 4mg q 3h. DC Neurontin. Change to Lyrica 100 mg BID. Toradol 15 mg x 1 dose today. Activity: OOB. PT and OT ordered. (NWB LLE) GI prophylaxis: Pepcid 20 mg po BID. Bowel regimen: Penny-colace. MOM. Lactulose. Senna PRN. Bisacodyl PRN. LBM . DVT prophylaxis: Mechanical VTE with SCDs. Chemical management with Lovenox 30 mg BID SQ. DC Planning: Case management consulted for assistance with final discharge disposition. Still awaiting another surgery with Ortho - possibly tomorrow or Thursday. Emotional support provided to patient at bedside and plan of care discussed. Discussed with RN at bedside. Discussed pt condition and plan of care with collaborating trauma surgeon. Patient is hemodynamically stable and being managed on the med/surg floor. The trauma team will round each day, and evaluate plan of care on a daily basis. Road rash Wash daily and gently with soap and water. Pat dry. Apply bacitracin twice a day Open LEFT tib/fib fx LEFT calcaneus fx Orthopedics consulted and assisting in management and care 12/17: I&D, placement of external fixation left leg 12/18: Closed reduction and revision of external fixation Orthopedics tentatively planning surgery Thursday or Thursday Supportive care Pain control Bowel regimen Pin care BID per orthopedics Abx per Orthopedics: Vanco and Ancef - now complete Encourage out of bed PT and OT ordered NWB LLE Problem Qualifiers (1) Fall: Qualified Codes: W19.XXXA - Unspecified fall, initial encounter (2) Left calcaneal fracture: Qualified Codes: S92.002A - Unspecified fracture of left calcaneus, initial encounter for closed fracture (3) Fracture of tibia with fibula, left, open: Qualified Codes: S82.202C - Unspecified fracture of shaft of left tibia, initial encounter for open fracture type IIIA, IIIB, or IIIC; S82.402C - Unspecified fracture of shaft of left fibula, initial encounter for open fracture type IIIA, IIIB, or IIIC Connie Reyes Dec 27, 2017 09:28
[2017-12-27] MEDS ORDERED: ACETAMINOPHEN 1000 MG/100 ML 100 ML IV SCH (10:15)
[2017-12-27 12:31] VITALS: BP 149/85; PULSE 78; RESP 16; TEMP 97.4; O2SAT 99
[2017-12-27] MEDS ORDERED: KETOROLAC TROMETHAMINE 30 MG/ML (IVP) VIAL IV PUSH ONE (12:45)
[2017-12-27] MEDS: PREGABALIN 100 MG CAP PO SCH ×2 (13:18→20:20)
[2017-12-27] MEDS: ACETAMINOPHEN 500 MG CPLT PO SCH (17:02)
[2017-12-27 17:06] VITALS: BP 148/97; PULSE 74; RESP 16; TEMP 97.5; O2SAT 98
[2017-12-27 20:00] VITALS: BP 148/83; PULSE 98; RESP 18; TEMP 97.4; O2SAT 98
[2017-12-28] VITALS: BP 130/84; PULSE 84; RESP 18; TEMP 97.7; O2SAT 96
[2017-12-28] MEDS: ACETAMINOPHEN 500 MG CPLT PO SCH ×4 (00:09→18:30)
[2017-12-28] MEDS: ENOXAPARIN SODIUM 30 MG/0.3 ML SYRINGE SQ SCH (02:00)
[2017-12-28 06:16] LABS: AUTOMATED NEUTROPHIL # 8.4 TH/MM3 (1.8-7.7); BASOPHIL # 0.1 TH/MM3 (0-0.2); BASOPHIL % 1.1 % (0.0-2.0); EOSINOPHIL % 7.4 % (0.0-4.0); HEMATOCRIT 39.7 % (39.0-51.0); HEMOGLOBIN 13.7 GM/DL (13.0-17.0); LYMPH % 18.4 % (9.0-44.0); LYMPHOCYTE # 2.5 TH/MM3 (1.0-4.8); MEAN CELL VOLUME 93.1 FL (80.0-100.0); MEAN CORPUSCULAR HEMOGLOBIN 32.2 PG (27.0-34.0); MEAN CORPUSCULAR HGB CONC 34.6 % (32.0-36.0); MEAN PLATELET VOLUME 7.9 FL (7.0-11.0); MONOCYTE # 1.5 TH/MM3 (0-0.9); NEUT % 62.1 % (16.0-70.0); PLATELET COUNT 340 TH/MM3 (150-450); RED BLOOD COUNT 4.26 MIL/MM3 (4.50-5.90); RED CELL DISTRIBUTION WIDTH 13.2 % (11.6-17.2); WHITE BLOOD COUNT 13.5 TH/MM3 (4.0-11.0)
[2017-12-28 06:44] LABS: BICARBONATE 27.4 MEQ/L (21.0-32.0); CALCIUM 9.3 MG/DL (8.5-10.1); CREATININE 0.96 MG/DL (0.60-1.30)
[2017-12-28 08:12] VITALS: BP 134/89; PULSE 71; RESP 17; TEMP 98.6; O2SAT 98
[2017-12-28] MEDS: LACTULOSE SYRUP 20 GM/30 ML CUP PO SCH (09:00)
[2017-12-28] MEDS: DOCUSATE SODIUM 50 MG/SENNA 8.6 MG TAB PO SCH ×2 (09:00→20:50)
[2017-12-28] MEDS: FAMOTIDINE 20 MG TAB PO SCH ×2 (09:11→20:45)
[2017-12-28] MEDS: MAGNESIUM HYDROXIDE SUSP 30 ML CUP PO SCH ×2 (09:12→23:00)
[2017-12-28] MEDS: SODIUM CHLORIDE 0.9% FLUSH 10 ML FLUSH IV FLUSH SCH ×2 (09:12→20:46)
[2017-12-28] MEDS: BACITRACIN TOP OINT 15 GM TUBE TOP SCH ×2 (09:12→20:46)
[2017-12-28] MEDS: PREGABALIN 100 MG CAP PO SCH ×2 (09:12→20:45)
[2017-12-28 11:45] VITALS: BP 124/73; PULSE 80; RESP 18; TEMP 97.6; O2SAT 97
--- NOTE | 2017-12-28 12:34 | HHI.PR ---
Subjective Subjective Notes PTD: 10 Patient sound asleep in bed. No distress noted. Objective Vitals/I&O Vital Signs Date Time Temp Pulse Resp B/P (MAP) Pulse Ox O2 Delivery O2 Flow Rate FiO2 12/28/17 11:45 97.6 80 18 124/73 (90) 97 12/26/17 09:03 Room Air Labs Laboratory Tests Test 12/28/17 05:30 White Blood Count 13.5 Red Blood Count 4.26 Hemoglobin 13.7 Hematocrit 39.7 Mean Corpuscular Volume 93.1 Mean Corpuscular Hemoglobin 32.2 Mean Corpuscular Hemoglobin Concent 34.6 Red Cell Distribution Width 13.2 Platelet Count 340 Mean Platelet Volume 7.9 Neutrophils (%) (Auto) 62.1 Lymphocytes (%) (Auto) 18.4 Monocytes (%) (Auto) 11.0 Eosinophils (%) (Auto) 7.4 Basophils (%) (Auto) 1.1 Neutrophils # (Auto) 8.4 Lymphocytes # (Auto) 2.5 Monocytes # (Auto) 1.5 Eosinophils # (Auto) 1.0 Basophils # (Auto) 0.1 CBC Comment AUTO DIFF Differential Comment AUTO DIFF CONFIRMED Platelet Estimate NORMAL Platelet Morphology Comment NORMAL Red Cell Morphology Comment NORMAL Blood Urea Nitrogen 13 Creatinine 0.96 Random Glucose 104 Calcium Level 9.3 Sodium Level 139 Potassium Level 4.4 Chloride Level 105 Carbon Dioxide Level 27.4 Anion Gap 7 Estimat Glomerular Filtration Rate 88 Narrative Exam GENERAL: This is a 37 year old male sound asleep in bed. No distress noted.. SKIN: Warm and dry. HEAD: Atraumatic. Normocephalic. EYES: PERRLA ENT: No nasal bleeding or discharge. Mucous membranes pink and moist. NECK: Trachea midline. No JVD. CARDIOVASCULAR: Regular rate and rhythm. RESPIRATORY: No accessory muscle use. Lungs are clear to auscultation. Breath sounds equal bilaterally. No distress or dyspnea. GASTROINTESTINAL: BS + x 4 quads. Abdomen soft, non-tender, nondistended. MUSCULOSKELETAL: Extremities without cyanosis, or edema. LEFT lower extremity ex-fix in place. Pin sites intact. Elevated on a pillow. Ecchymosis noted to LEFT calf. Dressing in place to LEFT miller with 4x4 and tape + peripheral pulses x 4 extremities. Warm with good capillary refill and sensation. MAEW. NEUROLOGICAL: Asleep. A/P Problem List: (1) Fall ICD Codes: W19.XXXA - Unspecified fall, initial encounter Status: Acute (2) Left calcaneal fracture ICD Codes: S92.002A - Unspecified fracture of left calcaneus, initial encounter for closed fracture Status: Acute (3) Lung nodule, multiple ICD Codes: R91.8 - Other nonspecific abnormal finding of lung field Status: Acute (4) Fracture of tibia with fibula, left, open ICD Codes: S82.402B - Unspecified fracture of shaft of left fibula, initial encounter for open fracture type I or II; S82.202B - Unspecified fracture of shaft of left tibia, initial encounter for open fracture type I or II Status: Acute Assessment and Plan [place]: This is a 37-year-old male who allegedly fell from 5 feet onto his left leg. EtOH 181. Found down by a passerby and brought to the ER. He was transferred from an outside facility for trauma services. INJURIES: Road rash Open LEFT tib/fib fx LEFT calcaneus fx Incidental lung nodules PMHx: 1 PPD smoker, ETOH Procedures: 12/17: I&D, placement of ex-fix LEFT leg 12/18: Closed reduction and revision of ex-fix LEFT. 12/28-: Return to OR with ortho??? Consults: Orthopedics. Case management. Awaiting for orthopedics to assess and evaluate patient for possible surgery today/or tomorrow Diet: Regular diet. Tolerating po diet. Encourage good po intake with each meal. Pulmonary: Encourage good pulmonary toileting. IS at bedside and pt encouraged to use. Rationale for use explained to patient, and verbalized understanding. PAIN Management: Oxycodone 5-10mg q 4h. Morphine 4mg q 3h. Lyrica 100 mg BID. Activity: OOB. PT and OT ordered. (NWB LLE) GI prophylaxis: Pepcid 20 mg po BID. Bowel regimen: Penny-colace. MOM. Lactulose. Senna PRN. Bisacodyl PRN. LBM . DVT prophylaxis: Mechanical VTE with SCDs. Chemical management with Lovenox 30 mg BID SQ. DC Planning: Case management consulted for assistance with final discharge disposition. Still awaiting another surgery with Ortho - possibly today or tomorrow. Emotional support provided to patient at bedside and plan of care discussed. Discussed with RN at bedside. Discussed pt condition and plan of care with collaborating trauma surgeon. Patient is hemodynamically stable and being managed on the med/surg floor. The trauma team will round each day, and evaluate plan of care on a daily basis. Road rash Wash daily and gently with soap and water. Pat dry. Apply bacitracin twice a day Open LEFT tib/fib fx LEFT calcaneus fx Orthopedics consulted and assisting in management and care 12/17: I&D, placement of external fixation left leg 12/18: Closed reduction and revision of external fixation Orthopedics tentatively planning surgery today or Thursday Supportive care Pain control Bowel regimen Pin care BID per orthopedics Abx per Orthopedics: Vanco and Ancef - now complete Encourage out of bed PT and OT ordered NWB LLE Remarks Patient seen and examined with the nurse practitioner, orthopedic plan noted, continue pain control DVT prophylaxis Problem Qualifiers (1) Fall: Qualified Codes: W19.XXXA - Unspecified fall, initial encounter (2) Left calcaneal fracture: Qualified Codes: S92.002A - Unspecified fracture of left calcaneus, initial encounter for closed fracture (3) Fracture of tibia with fibula, left, open: Qualified Codes: S82.202C - Unspecified fracture of shaft of left tibia, initial encounter for open fracture type IIIA, IIIB, or IIIC; S82.402C - Unspecified fracture of shaft of left fibula, initial encounter for open fracture type IIIA, IIIB, or IIIC Connie Reyes Dec 28, 2017 12:34 Lindsay Randall MD Dec 28, 2017 16:25
[2017-12-28 16:09] VITALS: BP 134/81; PULSE 89; RESP 17; TEMP 98; O2SAT 97
[2017-12-29 00:52] VITALS: BP 138/91; PULSE 70; RESP 18; TEMP 98; O2SAT 100
[2017-12-29] MEDS: ACETAMINOPHEN 500 MG CPLT PO SCH ×4 (00:54→18:24)
[2017-12-29 03:09] VITALS: BP 127/59; PULSE 76; RESP 18; TEMP 98; O2SAT 96
--- NOTE | 2017-12-29 07:16 | PD.ORT.PN ---
Subjective Subjective Remarks s/p I&D with wound closure and exfix left distal tibia doing well. reports pain controlled. resting comfortably Objective Vitals Vital Signs Date Time Temp Pulse Resp B/P (MAP) Pulse Ox O2 Delivery O2 Flow Rate FiO2 12/29/17 00:52 98.0 70 18 138/91 (107) 100 12/28/17 16:09 98.0 89 17 134/81 (98) 97 12/28/17 11:45 97.6 80 18 124/73 (90) 97 12/28/17 08:12 98.6 71 17 134/89 (104) 98 I/O 12/28/17 12/28/17 12/28/17 12/29/17 12/29/17 12/29/17 07:00 15:00 23:00 07:00 15:00 23:00 Intake Total 0 ml 1200 ml Output Total 1600 ml Balance 0 ml -400 ml Intake Oral 0 ml 1200 ml Output Urine Total 1600 ml # Voids 4 # Bowel Movements 0 Result Diagram: 12/28/17 0530 12/28/17 0530 Imaging Last 24 hours Impressions Pelvis X-Ray 12/17/171946 Signed Impressions: Service Date/Time: December 19:38 - CONCLUSION: Normal examination for a patient of this age. Garo Foreman MD Maxillofacial CT 12/17/171946 Signed Impressions: Service Date/Time: December 19:50 - CONCLUSION: 1. Pansinus mucosal thickening with partial opacification of the ethmoids and maxillary sinuses. Garo Foreman MD Head CT 12/17/171946 Signed Impressions: Service Date/Time: December 19:50 - CONCLUSION: 1. No acute intracranial abnormalities. Paranasal sinus disease. Garo Foreman MD Chest X-Ray 12/17/171946 Signed Impressions: Service Date/Time: December 19:38 - CONCLUSION: No acute disease. Garo Foreman MD Chest CT 12/17/171946 Signed Impressions: Service Date/Time: December 19:57 - CONCLUSION: 1. Negative for acute traumatic injury within the thorax. Scattered post inflammatory changes in the lungs with several tiny sub-3 mm nodules. Garo Foreman MD Cervical Spine CT 12/17/171946 Signed Impressions: Service Date/Time: December 19:50 - CONCLUSION: Normal examination for a patient of this age. Garo Foreman MD Abdomen/Pelvis CT 12/17/171946 Signed Impressions: Service Date/Time: December 19:57 - CONCLUSION: Negative for acute traumatic injury within the abdomen and pelvis. Garo Foreman MD Objective Remarks Left lower extremity: Dressing changed with no drainage. Incision approximated. No erythema. Swelling a +[address] Good capillary refills in distal pulses. Minimal swelling. Left upper extremity: No pain with shoulder elbow range of motion. He has tenderness over the scaphoid. Skin is intact with mild swelling. Distally intact sensation over the radial ulnar and median nerve distributions good capillary refills. He is able fully extend his fingers make a fist Assessment & Plan Assessment and Plan 1) Open Left distal Tibia Fx s/p I&D and revision of exfix -NWB -pin care BID -Elevation and ice -convert dressing over traumatic injury to xeroform, 4x4 and medipore tape. avoid any constrictive elda wraps -swelling still too great for surgery -continue daily dressing changes -surgery today with Dr Jose Enrique Grant,Kamaljit ARNETT/[employer] PA Dec 29, 2017 07:16
[2017-12-29 08:21] VITALS: BP 132/83; PULSE 86; RESP 17; TEMP 97.6; O2SAT 96
[2017-12-29] MEDS: DOCUSATE SODIUM 50 MG/SENNA 8.6 MG TAB PO SCH ×2 (09:00→20:31)
[2017-12-29] MEDS: LACTULOSE SYRUP 20 GM/30 ML CUP PO SCH (09:00)
[2017-12-29] MEDS: FAMOTIDINE 20 MG TAB PO SCH ×2 (09:15→20:30)
[2017-12-29] MEDS: PREGABALIN 100 MG CAP PO SCH ×2 (09:15→20:30)
[2017-12-29] MEDS: BACITRACIN TOP OINT 15 GM TUBE TOP SCH ×2 (09:16→20:34)
[2017-12-29] MEDS: SODIUM CHLORIDE 0.9% FLUSH 10 ML FLUSH IV FLUSH SCH ×2 (09:17→20:31)
[2017-12-29] MEDS: MAGNESIUM HYDROXIDE SUSP 30 ML CUP PO SCH ×2 (09:17→23:00)
[2017-12-29] MEDS ORDERED: LIDOCAINE HCL 1% PF 5 ML SYRINGE OTHER ONE (12:00)
[2017-12-29] MEDS ORDERED: LACTATED RINGER'S 1000 ML INJ 2,000 ML IV ONE (12:00)
[2017-12-29] MEDS ORDERED: ONDANSETRON HCL 4 MG/2 ML VIAL IV ONE (12:00)
[2017-12-29] MEDS ORDERED: PROPOFOL 200 MG/20 ML AMP IV ONE (12:00)
[2017-12-29] MEDS ORDERED: DEXAMETHASONE SOD PHOS 4 MG/ML VIAL IV ONE (12:00)
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
[2017-12-29] MEDS ORDERED: ACETAMINOPHEN 1000 MG/100 ML 100 ML IV ONE (13:25)
[2017-12-29] MEDS ORDERED: VANCOMYCIN HCL 1000 MG VIAL ONE (13:41)
[2017-12-29] MEDS ORDERED: ceFAZolin 2 GM PREMIX 50 ML ONE (13:41)
[2017-12-29] MEDS ORDERED: DEXMEDETOMIDINE HCL 200 MCG/2 ML VIAL ONE ×2 (15:14→15:44)
[2017-12-29] MEDS ORDERED: Post-op Orders (for Pharmacy) XX ONE (15:45)
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
--- NOTE | 2017-12-29 15:56 | RADRPT ---
EXAM DATE/TIME: 12/29/2017 15:21 [facility] COMPARISON: ANKLE LEFT LIMITED (AP&LAT), December 18, 2017, 13:39. INDICATIONS : ORIF left ankle. MEDICAL HISTORY : Left ankle fracture SURGICAL HISTORY : Ankle fracture pins ENCOUNTER: Subsequent ACUITY: 1 day PAIN SCORE: Non-responsive. LOCATION: Left ankle CONCLUSION: Fluoroscopic images during placement of plate and screws along the distal tibia and fibula fixating f ractures. Cam Turpin MD on December 29, 2017 at 15:53 Board Certified Radiologist. This report was verified electronically.
[2017-12-29] MEDS ORDERED: DO NOT ADM ANY ANTICOAGULANT DRUGS PRN (16:27)
[2017-12-29] MEDS ORDERED: MIDAZOLAM HCL 2 MG/2 ML VIAL ONE (16:36)
[2017-12-29] MEDS: LACTATED RINGER'S 1000 ML INJ 1,000 ML IV SCH (17:00)
[2017-12-29] MEDS ORDERED: *morphine SULFATE 8 MG/ML PERIprocedure ONLY ONE (17:19)
[2017-12-29 18:17] VITALS: BP 134/99; PULSE 92; RESP 18; TEMP 99.1; O2SAT 94
[2017-12-29] MEDS: CALCIUM/VITAMIN D 250 MG/125 U TAB PO SCH (18:23)
[2017-12-29 20:00] VITALS: BP 156/101; PULSE 97; RESP 18; TEMP 97.5; O2SAT 94
[2017-12-29] MEDS: KETOROLAC TROMETHAMINE 30 MG/ML (IVP) VIAL IVP SCH (21:01)
[2017-12-29] MEDS: ceFAZolin 2 GM PREMIX 50 ML IV SCH (21:01)
[2017-12-29] MEDS: GENTAMICIN INJ 80 MG in SODIUM CHLORIDE 0.9% INJ 100 ML IV SCH (22:02)
[2017-12-30] VITALS: BP 148/88; PULSE 109; RESP 18; TEMP 98.1; O2SAT 96
[2017-12-30] MEDS: ACETAMINOPHEN 500 MG CPLT PO SCH ×5 (00:23→23:27)
[2017-12-30 04:00] VITALS: BP 136/76; PULSE 101; RESP 18; TEMP 97.8; O2SAT 94
[2017-12-30] MEDS: GENTAMICIN INJ 80 MG in SODIUM CHLORIDE 0.9% INJ 100 ML IV SCH ×3 (04:34→20:57)
--- NOTE | 2017-12-30 06:52 | PD.ORT.PN ---
Subjective Subjective Remarks Pain controlled and continuing to elevate leg. Objective Vitals Vital Signs Date Time Temp Pulse Resp B/P (MAP) Pulse Ox O2 Delivery O2 Flow Rate FiO2 12/30/17 04:00 97.8 101 18 136/76 (96) 94 12/30/17 00:00 98.1 109 18 148/88 (108) 96 12/29/17 20:00 97.5 97 18 156/101 (119) 94 12/29/17 18:17 99.1 92 18 134/99 (111) 94 12/29/17 17:45 97.8 90 16 147/85 (105) 95 Room Air 12/29/17 17:30 93 16 148/90 (109) 94 Room Air 12/29/17 17:24 15 12/29/17 17:15 97 16 149/93 (111) 99 Nasal Cannula 2 12/29/17 17:00 99 15 140/98 (112) 97 Nasal Cannula 2 12/29/17 16:45 98 14 141/99 (113) 96 Nasal Cannula 2 12/29/17 16:30 95 14 138/97 (111) 100 Nasal Cannula 3 12/29/17 16:27 98.5 94 10 137/92 (107) 99 Nasal Cannula 3 12/29/17 10:15 18 12/29/17 08:21 97.6 86 17 132/83 (99) 96 I/O 12/29/17 12/29/17 12/29/17 12/30/17 12/30/17 12/30/17 07:00 15:00 23:00 07:00 15:00 23:00 Intake Total 0 ml 2000 ml 50 ml Output Total 2375 ml Balance 0 ml -375 ml 50 ml Intake Oral 0 ml IV Total 50 ml Other 2000 ml Output Urine Total 2300 ml Estimated Blood Loss 75 ml # Voids 2 1 # Bowel Movements 0 Result Diagram: 12/28/17 0530 12/28/17 0530 Imaging Last 24 hours Impressions Pelvis X-Ray 12/17/171946 Signed Impressions: Service Date/Time: December 19:38 - CONCLUSION: Normal examination for a patient of this age. Garo Foreman MD Maxillofacial CT 12/17/171946 Signed Impressions: Service Date/Time: December 19:50 - CONCLUSION: 1. Pansinus mucosal thickening with partial opacification of the ethmoids and maxillary sinuses. Garo Foreman MD Head CT 12/17/171946 Signed Impressions: Service Date/Time: December 19:50 - CONCLUSION: 1. No acute intracranial abnormalities. Paranasal sinus disease. Garo Foreman MD Chest X-Ray 12/17/171946 Signed Impressions: Service Date/Time: December 19:38 - CONCLUSION: No acute disease. Garo Foreman MD Chest CT 12/17/171946 Signed Impressions: Service Date/Time: , December 17, 2017 19:57 - CONCLUSION: 1. Negative for acute traumatic injury within the thorax. Scattered post inflammatory changes in the lungs with several tiny sub-3 mm nodules. Garo Foreman MD Cervical Spine CT 12/17/171946 Signed Impressions: Service Date/Time: December 19:50 - CONCLUSION: Normal examination for a patient of this age. Garo Foreman MD Abdomen/Pelvis CT 12/17/171946 Signed Impressions: Service Date/Time: December 19:57 - CONCLUSION: Negative for acute traumatic injury within the abdomen and pelvis. Garo Foreman MD Objective Remarks Left lower extremity: Short leg splint in place. Clean and dry. Intact sensation in all toes and is able to move toes appropriately Left upper extremity: No pain with shoulder elbow range of motion. He has tenderness over the scaphoid. Skin is intact with mild swelling. Distally intact sensation over the radial ulnar and median nerve distributions good capillary refills. He is able fully extend his fingers make a fist Assessment & Plan Assessment and Plan Open left distal tibia pilon fracture ORIF POD 1 -NWB -Maintain splint -Elevation and ice -We will plan on possible discharge home tomorrow -Incentive spirometer -Follow-up with Dr. Quispe or [facility] in 1 week for removal of splint and evaluation of open wound Akbar Luna Jr. Dec 30, 2017 06:52
[2017-12-30] MEDS: PREGABALIN 100 MG CAP PO SCH (07:26)
[2017-12-30] MEDS: CALCIUM/VITAMIN D 250 MG/125 U TAB PO SCH ×3 (07:27→17:00)
[2017-12-30] MEDS: SODIUM CHLORIDE 0.9% FLUSH 10 ML FLUSH IV FLUSH SCH ×2 (07:27→20:57)
[2017-12-30] MEDS: DOCUSATE SODIUM 50 MG/SENNA 8.6 MG TAB PO SCH ×2 (07:27→20:57)
[2017-12-30] MEDS: LACTULOSE SYRUP 20 GM/30 ML CUP PO SCH (07:27)
[2017-12-30] MEDS: FAMOTIDINE 20 MG TAB PO SCH ×2 (07:27→20:57)
[2017-12-30] MEDS: BACITRACIN TOP OINT 15 GM TUBE TOP SCH ×2 (07:28→20:58)
[2017-12-30] MEDS: KETOROLAC TROMETHAMINE 30 MG/ML (IVP) VIAL IVP SCH ×3 (07:35→20:58)
[2017-12-30] MEDS: ceFAZolin 2 GM PREMIX 50 ML IV SCH ×3 (07:35→20:58)
[2017-12-30] MEDS: SODIUM CHLORIDE 0.9% FLUSH 10 ML FLUSH IV FLUSH PRN (07:36)
[2017-12-30 07:40] VITALS: BP 158/98; PULSE 83; RESP 19; TEMP 98.1; O2SAT 95
[2017-12-30] MEDS: LACTATED RINGER'S 1000 ML INJ 1,000 ML IV SCH (08:29)
[2017-12-30 09:44] LABS: HEMATOCRIT 33.4 % (39.0-51.0); HEMOGLOBIN 11.4 GM/DL (13.0-17.0)
[2017-12-30] MEDS: MAGNESIUM HYDROXIDE SUSP 30 ML CUP PO SCH ×2 (11:00→21:33)
[2017-12-30 11:49] VITALS: BP 131/83; PULSE 90; RESP 18; TEMP 97.1; O2SAT 96
[2017-12-30] MEDS: ENOXAPARIN SODIUM 30 MG/0.3 ML SYRINGE SQ SCH (13:57)
[2017-12-30 15:33] VITALS: BP 155/92; PULSE 86; RESP 18; TEMP 97.9; O2SAT 96
[2017-12-30] MEDS ORDERED: PERC10TA27 PO (15:44)
[2017-12-30] MEDS ORDERED: GABA300C5 PO (15:44)
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
[2017-12-30] MEDS: GABAPENTIN 300 MG CAP PO SCH (17:02)
[2017-12-30 20:00] VITALS: BP 151/90; PULSE 85; RESP 19; TEMP 97.4; O2SAT 97
[2017-12-31] VITALS: BP 147/75; PULSE 105; RESP 18; TEMP 98; O2SAT 97
[2017-12-31] MEDS: LACTATED RINGER'S 1000 ML INJ 1,000 ML IV SCH (02:20)
[2017-12-31] MEDS: ENOXAPARIN SODIUM 30 MG/0.3 ML SYRINGE SQ SCH (02:23)
[2017-12-31] MEDS: GENTAMICIN INJ 80 MG in SODIUM CHLORIDE 0.9% INJ 100 ML IV SCH (04:38)
[2017-12-31] MEDS: SODIUM CHLORIDE 0.9% FLUSH 10 ML FLUSH IV FLUSH PRN (04:40)
[2017-12-31] MEDS: ceFAZolin 2 GM PREMIX 50 ML IV SCH (05:35)
[2017-12-31] MEDS: ACETAMINOPHEN 500 MG CPLT PO SCH (05:40)
--- NOTE | 2017-12-31 06:36 | PD.ORT.PN ---
Subjective Subjective Remarks Pain controlled and continuing to elevate leg. Objective Vitals Vital Signs Date Time Temp Pulse Resp B/P (MAP) Pulse Ox O2 Delivery O2 Flow Rate FiO2 12/31/17 00:00 98.0 105 18 147/75 (99) 97 12/30/17 20:00 97.4 85 19 151/90 (110) 97 12/30/17 18:03 18 12/30/17 18:03 18 12/30/17 15:33 97.9 86 18 155/92 (113) 96 12/30/17 15:09 18 12/30/17 11:49 97.1 90 18 131/83 (99) 96 12/30/17 08:28 18 12/30/17 07:40 98.1 83 19 158/98 (118) 95 I/O 12/30/17 12/30/17 12/30/17 12/31/17 12/31/17 12/31/17 07:00 15:00 23:00 07:00 15:00 23:00 Intake Total 650 ml 1000 ml 950 ml Output Total 1775 ml 800 ml 1500 ml 300 ml Balance -1125 ml 200 ml -1500 ml 650 ml Intake Oral 600 ml 1000 ml 800 ml IV Total 50 ml 150 ml Output Urine Total 1775 ml 800 ml 1500 ml 300 ml # Voids 2 # Bowel Movements 0 2 0 Result Diagram: 12/30/17 0851 12/28/17 0530 Imaging Last 24 hours Impressions Pelvis X-Ray 12/17/171946 Signed Impressions: Service Date/Time: December 19:38 - CONCLUSION: Normal examination for a patient of this age. Garo Foreman MD Maxillofacial CT 12/17/171946 Signed Impressions: Service Date/Time: December 19:50 - CONCLUSION: 1. Pansinus mucosal thickening with partial opacification of the ethmoids and maxillary sinuses. Garo Foreman MD Head CT 12/17/171946 Signed Impressions: Service Date/Time: December 19:50 - CONCLUSION: 1. No acute intracranial abnormalities. Paranasal sinus disease. Garo Foreman MD Chest X-Ray 12/17/171946 Signed Impressions: Service Date/Time: December 19:38 - CONCLUSION: No acute disease. Garo Foreman MD Chest CT 12/17/171946 Signed Impressions: Service Date/Time: December 19:57 - CONCLUSION: 1. Negative for acute traumatic injury within the thorax. Scattered post inflammatory changes in the lungs with several tiny sub-3 mm nodules. aGro Foreman MD Cervical Spine CT 12/17/171946 Signed Impressions: Service Date/Time: December 19:50 - CONCLUSION: Normal examination for a patient of this age. Garo Foreman MD Abdomen/Pelvis CT 12/17/171946 Signed Impressions: Service Date/Time: December 19:57 - CONCLUSION: Negative for acute traumatic injury within the abdomen and pelvis. Garo Foreman MD Objective Remarks Left lower extremity: Short leg splint in place. Clean and dry. Intact sensation in all toes and is able to move toes appropriately Left upper extremity: No pain with shoulder elbow range of motion. He has tenderness over the scaphoid. Skin is intact with mild swelling. Distally intact sensation over the radial ulnar and median nerve distributions good capillary refills. He is able fully extend his fingers make a fist Assessment & Plan Assessment and Plan Open left distal tibia pilon fracture ORIF POD 2 -NWB -Maintain splint -Elevation and ice -We will plan on discharge home today -Incentive spirometer -Follow-up with Dr. Quispe or [facility] in 1 week for removal of splint and evaluation of open wound Akbar Luna Jr. Dec 31, 2017 06:36
[2017-12-31] MEDS ORDERED: WHEEMIS3 (06:53)
[2017-12-31 07:55] VITALS: BP 159/105; PULSE 84; RESP 19; TEMP 97.8; O2SAT 97
[2017-12-31] MEDS: GABAPENTIN 300 MG CAP PO SCH (09:00)
[2017-12-31] MEDS: CALCIUM/VITAMIN D 250 MG/125 U TAB PO SCH (09:00)
[2017-12-31] MEDS: BACITRACIN TOP OINT 15 GM TUBE TOP SCH (09:00)
[2017-12-31] MEDS: SODIUM CHLORIDE 0.9% FLUSH 10 ML FLUSH IV FLUSH SCH (09:00)
[2017-12-31] MEDS: LACTULOSE SYRUP 20 GM/30 ML CUP PO SCH (09:00)
[2017-12-31] MEDS: FAMOTIDINE 20 MG TAB PO SCH (09:01)
[2017-12-31] MEDS: DOCUSATE SODIUM 50 MG/SENNA 8.6 MG TAB PO SCH (09:01)
[2017-12-31] MEDS: MAGNESIUM HYDROXIDE SUSP 30 ML CUP PO SCH (09:04)
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
== END 2017-12-31 10:51 | disposition home or self-care (01) | DRG 492 ==
LOC: PHED 18:46 → NEDA 20:35 → N06B 12-18 00:22
PROVIDERS: ADMIT Surgery; ATTEND Surgery
PROC: 30233N1 Transfusion of Nonautologous Red Blood Cells into Peripheral Vein, Percutaneous Approach (ICD-10-PCS; 2017-12-17)
PROC: 0QSH35Z Reposition Left Tibia with External Fixation Device, Percutaneous Approach (ICD-10-PCS; principal; 2017-12-17 21:50)
PROC: 0QW Lower Bones, Revision (ICD-10-PCS; 2017-12-18)
PROC: 0QSKXZZ Reposition Left Fibula, External Approach (ICD-10-PCS; 2017-12-18)
PROC: 0QSHXZZ Reposition Left Tibia, External Approach (ICD-10-PCS; 2017-12-18)
PROC: 0QSK04Z Reposition Left Fibula with Internal Fixation Device, Open Approach (ICD-10-PCS; 2017-12-29)
PROC: 0QSH04Z Reposition Left Tibia with Internal Fixation Device, Open Approach (ICD-10-PCS; 2017-12-29)
PROC: 0QSM04Z Reposition Left Tarsal with Internal Fixation Device, Open Approach (ICD-10-PCS; 2017-12-29)
PROC: 0QPMX5Z Removal of External Fixation Device from Left Tarsal, External Approach (ICD-10-PCS; 2017-12-29)
PROC: 0QPHX5Z Removal of External Fixation Device from Left Tibia, External Approach (ICD-10-PCS; 2017-12-29)
DX: S82.392C Other fracture of lower end of left tibia, initial encounter for open fracture type IIIA, IIIB, or IIIC (principal); S82.832C Other fracture of upper and lower end of left fibula, initial encounter for open fracture type IIIA, IIIB, or IIIC; I95.9 Hypotension, unspecified; F17.210 Nicotine dependence, cigarettes, uncomplicated; F10.129 Alcohol abuse with intoxication, unspecified; Y90.6 Blood alcohol level of 120-199 mg/100 ml; S92.002A Unspecified fracture of left calcaneus, initial encounter for closed fracture; Y93.01 Activity, walking, marching and hiking; W17.89XA Other fall from one level to another, initial encounter; R91.8 Other nonspecific abnormal finding of lung field
CPT/HCPCS: 29505; 36430; 70450; 70486; 71045; 71260; 72125; 72170; 73110; 73600; 73700; 74177; 76000; 80048; 80076; 80307; 82550; 83605; 85007; 85014; 85018; 85025; 85027; 85610; 85730; 86850; 86900; 86901; 86920; 90471; 90714; 94150; 96374; 96375; 99291; C1713; E0113; G0390; J0131; J0330; J0360; J0690; J1100; J1580; J1650; J1885; J2250; J2270; J2370; J2405; J3010; J3370; J3411; J7040; J7050; J7120; L0150; L8699; P9016; Q9967

== ENCOUNTER 2018-04-13 10:00 | Inpatient (IN) ==
[2018-04-19] MEDS ORDERED: Metoprolol Tartrate 25 MG Tablet PO SCH (06:00)
[2018-04-19] MEDS ORDERED: Chlorhexidine Gluconate 2% 1 Pack (2 Cloths) TOPICAL SCH (06:00)
[2018-04-19] MEDS ORDERED: Chlorhexidine 4% Topical 120 APPLIC/120 ML Bottle TOPICAL SCH (06:00)
[2018-04-19] MEDS ORDERED: Sodium Chlor 0.9% Inj 500 ML IV.SIG SCH (06:00)
[2018-04-19] MEDS ORDERED: ceFAZolin 2 GM Premix Inj 2 GM/50 ML PIGGYBACK IV.SIG ONE (06:01)
[2018-04-19] MEDS ORDERED: Tobramycin Sulfate 1,200 MG Vial (for ortho/sterile core) OTHER ONE (06:02)
[2018-04-19 06:41] LABS: Baso # (Auto) 0.1 th/mm3 (0.0-0.2); Baso % (Auto) 0.5 % (0.0-2.0); Eos # (Auto) 0.5 th/mm3 (0.0-0.4); Eos % (Auto) 3.5 % (0.0-4.0); Hematocrit 41.5 % (39.0-51.0); Hemoglobin 14.6 gm/dL (13.0-17.0); Lymph # (Auto) 3.3 th/mm3 (1.0-4.8); Lymph % (Auto) 25.8 % (9.0-44.0); Mean Corpuscular Hemoglobin 30.6 pg (27.0-34.0); Mean Corpuscular Volume 87.4 fL (80.0-100.0); Mean Platelet Volume 7.5 fL (7.0-11.0); Mono # (Auto) 1.1 th/mm3 (0.0-0.9); Mono % (Auto) 8.4 % (0.0-8.0); Neut # (Auto) 7.9 th/mm3 (1.8-7.7); Neut % (Auto) 61.8 % (16.0-70.0); Platelet Count 332 th/mm3 (150-450); Red Blood Count 4.75 mil/mm3 (4.50-5.90); Red Cell Distribution Width 13.4 % (11.6-17.2); White Blood Count 12.8 th/mm3 (4.0-11.0)
[2018-04-19] MEDS ORDERED: Vancomycin Inj 1,000 MG in Sodium Chlor 0.9% Inj 250 ML IV.SIG SCH (08:00)
[2018-04-19] MEDS ORDERED: Morphine Inj 4 MG/ML Vial IV.PUSH PRN (08:13)
--- NOTE | 2018-04-19 08:23 | P.OP ---
- Preoperative Diagnosis (1) Osteomyelitis of left tibia (2) Osteomyelitis of left fibula Date of procedure: 04/19/18 Procedure: Removal of deep hardware left tibia, removal of deep hardware left fibula, irrigation and debridement of left tibia, irrigation and debridement of left fibula, placement of antibiotic spacer Anesthesia: SHAHRIAR Surgeon: Torsten Keita MD Back Tender Paper Machine: MULUGETA Bautista PA-C The surgical procedure was assisted by my physician physician assistant primary care. My P.A. presence was necessary throughout this case for the manipulation and positioning of the surgical extremity. My P.A. was assisting me throughout the duration of this procedure. The skill set of a physician physician assistant primary care was medically necessary to complete this procedure. During the surgical case the surgical coordinator was working at the back table and the physician physician assistant primary care was directly assisting me. Operation and Findings: Luis Daniel is well-known to me from previous treatment of open left distal tibia and fibular fractures. Patient has been having a small area of drainage from his incision. Informed consent was obtained preoperatively and OpSite was marked. He is brought the operating. he was given IV sedation and general anesthesia. Left leg was prepped with alcohol followed Hibiclens and draped in usual sterile fashion. Antibiotics were held until cultures were obtained. Timeout procedure was performed. Procedure began with removal of deep hardware from the left fibula. A 5 inch incision was made through previous scar. Full-thickness flaps were elevated. The hardware was identified. Using the appropriate screwdrivers the screws were removed. The plate was elevated. Curettes and rongeurs were now used to debride the fibula. An excisional debridement was performed. Tissue was obtained to be sent for cultures and sensitivities. There was a defect in the fibula which was completely debrided using curettes and rondure. Next attention was turned to the tibia. A 6 inch incision was made through previous scars. Subcu tissue was dissected with Bovie. The plate was visualized. Using the appropriate screwdrivers the screws were removed. The plate was now elevated and removed. An excisional debridement was now performed. Skin, subcutaneous tissue, and bone were sharply debrided with scalpel, rongeurs, and curettes. There was a defect in the tibia which was thoroughly debrided. Tissue specimen was obtained for cultures. Soft tissue and bone were now thoroughly irrigated with pulsatile lavage. Nexus return antibiotic beads. 10 cc of stimulan cement was mixed with 2 g of vancomycin. The cement was made in this medium beads. Once the beads were set the beads were packed into the defects of the tibia and fibula. The defects were completely filled. Incisions were not closed with 3-0 PDS and 3-0 nylon. Sterile dressings were applied. Patient was placed into a well molded well- padded splint. He was awakened and transferred to recovery room in stable condition.
[2018-04-19] MEDS ORDERED: Post-op Orders (for Pharmacy) OTHER STA (08:50)
[2018-04-19] MEDS ORDERED: fentaNYL Citrate Inj 100 MCG/2 ML Ampul ONE (08:53)
--- NOTE | 2018-04-19 08:57 | XR ---
EXAM DATE: 04/19/2018 8:50 AM EDT AGE/SEX: 38 years / Male INDICATIONS: Removal of hardware left ankle. CLINICAL DATA: This is the patient's initial encounter. Patient reports that signs and symptoms have been present for 1 day and indicates a pain score of Nonresponsive. MEDICAL/SURGICAL HISTORY: Non-responsive. Non-responsive. COMPARISON: [facility] – [place], ANKLE LEFT LIMITED (AP&LAT), 12/29/2017. . FINDINGS: Single intraoperative OEC image of the ankle shows interval removal of the sideplate and osseous scre ws securing the distal tibia and fibula. No residual hardware. On this single image, the ankle mortis e appears symmetric despite some persistent bony irregularity in the distal tibial metadiaphysis. Per sistent one bone thickness medial displacement of the distal fibular diaphysis with bony bridging. CONCLUSION: Interval removal of distal tibial and fibular hardware as described above. Ankle mortise appears symm etric on the single image provided. Electronically signed by: Willis Caldera MD 04/19/2018 8:55 AM EDT
[2018-04-19] MEDS ORDERED: Calcium/Vitamin D 250/125 MG Tablet PO SCH (09:00)
[2018-04-19] MEDS ORDERED: *Meperidine Inj 25 MG/ML Vial PERIprocedural Use ONLY ONE (09:13)
[2018-04-19] MEDS ORDERED: *Labetalol HCl Inj 100 MG/20 ML Vial PERIprocedural Use ONLY IV.PUSH ONE (09:23)
[2018-04-19] MEDS ORDERED: *morphine SULFATE 4 MG/ML PERIprocedure ONLY ONE ×2 (09:24→09:33)
[2018-04-19] MEDS ORDERED: *Enalaprilat Inj 1.25 MG/ML Vial IV.PUSH ONE (09:33)
[2018-04-19] MEDS: Senna/Docusate Sodium 8.6/50 MG Tablet PO SCH ×2 (09:43→21:49)
[2018-04-19] MEDS: Calcium/Vitamin D 250/125 MG Tablet PO SCH ×3 (09:44→17:03)
[2018-04-19] MEDS: Multivitamin/Minerals Therapeutic Tablet PO SCH (09:46)
[2018-04-19] MEDS ORDERED: Lidocaine PF 1% Inj 5 ML Syringe INFILTRATN ONE (12:00)
[2018-04-19] MEDS ORDERED: Sodium Chlor 0.9% Inj 250 ML IV.SIG ONE (12:00)
[2018-04-19] MEDS: oxyCODONE/Acetaminophen 10/325 Tablet PO PRN ×3 (12:44→21:52)
--- NOTE | 2018-04-19 15:37 | P.CONID ---
History of Present Illness Service: ID Consult date: 04/19/18 Requesting Physician: Torsten Keita Reason for Consult: infected hardware Primary Care Provider: No Primary Care Physician Family Provider: No Primary Care Physician History of Present Illness: 38 yo sp open fracture L tibia in December 2017 sp ext fix followed by ORIF developped draining, swelling @ incision essentially since surgery He was on some oral abx late December - early January which per pt did not work No more courses of abx prior to admission He cont to squeese large amount of pus every morning He was admitted by today and underwent Removal of deep hardware left tibia, removal of deep hardware left fibula, irrigation and debridement of left tibia, irrigation and debridement of left fibula, placement of antibiotic spacer by Dr Larkin Drainage clx from 04/08 with MRSA Denies fever, chills WBC in 12 K range ESR 12 Review of Systems All other systems reviewed negative except as stated in HPI PMFSH - History History Provided By: Patient - Medical History Medical History: Medical History (Last Reviewed 04/19/18 @ 15:39 by Stacey Shepherd MD) Fracture of left lower leg MRSA (methicillin resistant Staphylococcus aureus) infection - Surgical History Surgical History: Surgical History (Last Reviewed 05/29/18 @ 01:47 by Briana Newton MD) History of orthopedic surgery - Family History Family History: Family History (Last Updated 06/11/18 @ 13:33 by Stacey Shepherd MD) Other No pertinent family history - Social History I have reviewed the patient's Social History: Yes - Tobacco History Second Hand Smoke Exposure: No Tobacco Use In Past 30 Days: Yes Smoking Status: Current every day smoker Tobacco Type: E-Cigarettes - Alcohol History How Often Do You Have a Drink Containing Alcohol: Monthly or less - Substance Use History Substance History: No History of Abuse - Substance Use Type Marijuana Status: Active Route Used: Inhalation - Travel History Recent Travel in the [facility] Within the Last 8 Weeks: Yes - Immunization History Tetanus Immunization: Unsure Hx Influenza Vaccine This Season: No Medications and Allergies Active Medications: Active Medications Al Hydroxide/Mg Hydroxide (Milk Of Tanisha Liq) 30 ml PO BID PRN PRN Reason: MILD CONSTIPATION Calcium/Vitamin D (Oscal With D 250/125 Mg) 1 tab PO TID [facility]ONTSE Last Admin: 04/19/18 12:42 Dose: 1 tab Chlorhexidine Gluconate (Chlorhexidine 2% Cloth) 3 pack TOPICAL [employer]IST[employer] PROFESS[employer] [facility] Stop: 04/22/18 05:52 Last Admin: 04/19/18 06:46 Dose: 3 pack Chlorhexidine Gluconate (Hibiclens 4% Topical) 1 applicatio TOPICAL ONCE [facility] Stop: 04/23/18 05:59 Diphenhydramine HCl (Benadryl) 25 mg PO Q6H PRN PRN Reason: ITCHING Lactated Ringer's (Lr 1000 Ml Inj) 1,000 mls @ 30 mls/hr IV.SIG .Q24H [facility] Stop: 04/22/18 05:52 Last Infusion: 04/19/18 08:19 Dose: Infused Sodium Chloride (Ns Inj) 500 mls @ 30 mls/hr IV.SIG .Q10H [facility] Stop: 04/22/18 05:52 Vancomycin HCl 1,000 mg/ (Sodium Chloride) 250 mls @ 250 mls/hr IV.SIG [employer] PROF[employer] [facility] Stop: 04/22/18 07:50 Last Infusion: 04/19/18 08:18 Dose: Infused Lactated Ringer's (Lr 1000 Ml Inj) 1,000 mls @ 80 mls/hr IV.CONT .[id number] [facility] Last Admin: 04/19/18 09:30 Dose: 80 mls/hr Vancomycin/Sodium Chloride (Vancomycin Inj) 1 gm in 200 mls @ 200 mls/hr IV.SIG Q12H [facility] Stop: 04/20/18 08:59 Metoprolol Tartrate (Lopressor) 25 mg PO [employer] PROF[employer] [facility] Stop: 04/22/18 05:52 Miscellaneous Information [place] [place] 1 each OTHER UNSCH PRN PRN Reason: SEE LABEL COMMENTS Stop: 04/20/18 08:58 Morphine Sulfate (Morphine Inj) 4 mg IV.PUSH Q3H PRN PRN Reason: BREAKTHROUGH PAIN Multivitamins/Minerals (Theragran-M) 1 tab PO DAILY [facility] Last Admin: 04/19/18 09:46 Dose: Not Given Ondansetron HCl (Zofran Odt) 4 mg PO Q6H PRN PRN Reason: NAUSEA OR VOMITING Ondansetron HCl (Zofran Inj) 4 mg IV.PUSH Q6H PRN PRN Reason: NAUSEA OR VOMITING Oxycodone/Acetaminophen (Percocet 10/325 Mg) 1 tab PO Q4H PRN PRN Reason: pain 3<10 Last Admin: 04/19/18 12:44 Dose: 1 tab Povidone Iodine (Betadine 5% Antisepsis Kit) 1 applicatio EACH NARE [employer]ESS[employer] [facility] Stop: 04/22/18 05:52 Last Admin: 04/19/18 06:46 Dose: 1 applicatio Senna/Docusate Sodium (Penny-Colace) 1 tab PO BID [facility] Last Admin: 04/19/18 09:43 Dose: Not Given Sennosides (Senokot) 17.2 mg PO BID PRN PRN Reason: Moderate Constipation Sodium Chloride (Ns Flush) 2 ml IV.FLUSH BID [facility] Last Admin: 04/19/18 12:49 Dose: Not Given Sodium Chloride (Ns Flush) 2 ml IV.FLUSH PRN PRN PRN Reason: FLUSH AFTER USING IV ACCESS Vitamin D (Vitamin D3) 5,000 unit PO DAILY [facility] Last Admin: 04/19/18 09:43 Dose: Not Given Allergies Allergy/AdvReac Type Severity Reaction Status Date / Time No Known Allergies Allergy Verified 05/29/18 00:35 Home Medications Medication Instructions Recorded Confirmed Type gabapentin 300 mg PO TID 04/16/18 05/29/18 History oxycodone-acetaminophen [Percocet] 1 tab PO Q8H PRN 04/16/18 05/29/18 History Exam Vital signs: Vital Signs 04/19/18 06:24 04/19/18 08:46 04/19/18 09:00 Temperature 98.5 F 97.5 F L Pulse Rate 76 81 75 Respiratory Rate 16 20 19 Blood Pressure 146/96 H 129/83 149/97 H Pulse Oximetry 98 96 97 04/19/18 09:15 04/19/18 09:30 04/19/18 09:45 Temperature Pulse Rate 85 74 77 Respiratory Rate 19 16 15 Blood Pressure 173/107 H 148/102 H 140/90 Pulse Oximetry 98 98 96 04/19/18 09:57 04/19/18 12:00 Temperature 97.7 F 98.2 F Pulse Rate 70 83 Respiratory Rate 14 17 Blood Pressure 142/91 H 120/71 Pulse Oximetry 98 98 Intake & Output 04/18/18 04/19/18 04/19/18 18:59 06:59 18:59 Intake Total 1450 / 1450 Output Total 35 / 35 Balance 1415 / 1415 Weight 70.5 kg Intake: IV 1300 / 1300 LR 1000 mL Inj 1,000 ML @ 30 1000 / 1000 mls/hr IV.SIG .Q24H [facility] Rx#: [id number] Vancomycin Inj 1,000 MG In NS 250 / 250 Inj 250 ML @ 250 mls/hr IV.SIG [employer] PROFESSOR [facility] Rx#:[id number] Ancef 2 GM Premix Inj 2 gm In 50 / 50 50 ml @ 0 mls/hr IV.SIG .STK- [facility] Rx#:[id number] Anesthesia Amount 150 / 150 Output: Estimated Blood Loss 35 / 35 Other: Weight On Admission 70.5 kg - Constitutional no acute distress, average body habitus - Routine HEENT Exam Head: Present: normocephalic, atraumatic ENT: Present: mucous membranes moist, oropharynx clear - Routine Neck Exam Present: supple, full ROM - Routine Respiratory Exam Present: CTA bilaterally Comments: good effort - Routine Cardiovascular Exam Present: RRR, S1, S2 Comments: well perfused perifery - Routine Abdominal Exam Present: soft, normoactive bowel sounds Comments: no organomegaly no masses no tender not distended - Routine Extremities Exam Comments: no cyanosis no clubbing no edema LLE with post op dressing in place splint - Routine Skin Exam Present: intact, warm Comments: no rash - Routine Neurological Exam Present: alert, oriented X3, CN II-XII intact, moving all extremities, vision grossly intact, hearing grossly intact - Routine Psychiatric Exam Present: normal affect, normal thought process, cooperative Results - Labs CBC & Chem 7: 04/19/18 06:20 04/20/18 07:50 Labs: Laboratory Results - last 24 hr 04/19/18 04/19/18 04/19/18 06:20 06:20 06:20 WBC 12.8 H RBC 4.75 Hgb 14.6 Hct 41.5 MCV 87.4 MCH 30.6 MCHC 35.0 RDW 13.4 Plt Count 332 MPV 7.5 Neut % (Auto) 61.8 Lymph % (Auto) 25.8 Gregg % (Auto) 8.4 H Eos % (Auto) 3.5 Baso % (Auto) 0.5 Neut # (Auto) 7.9 H Lymph # (Auto) 3.3 Gregg # (Auto) 1.1 H Eos # (Auto) 0.5 H Baso # (Auto) 0.1 WBC Differential . Differential Comment Auto diff final ESR 12 C-Reactive Protein 1.84 H - Imaging Impressions Ankle X-Ray 04/19/18 00:00 CONCLUSION: Interval removal of distal tibial and fibular hardware as described above. Ankle mortise appears symmetric on the single image provided. Assessment and Plan - Plan L tib fib open fracture sp ORIF Hardware infection , chronic, MRSA sp removal of hardware vancomycin IV with target throuigh of 15-20 anticipate 6 weeks of IV abx, followed by oral if needed
--- NOTE | 2018-04-19 15:52 | P.DCO ---
Post Hospital Infusion Therapy Location of Infusion Therapy: Home Health Care IV Infusion Order Patient Weight: 70.5 kg - Diagnosis (1) Osteomyelitis of left fibula Code(s): M86.9 - Osteomyelitis, unspecified (2) Osteomyelitis of left tibia Code(s): M86.9 - Osteomyelitis, unspecified - Administer Medication Vancomycin Dose: 1.5 grams IV Directions: q 12 hours Start Treatment: 04/19/18 Stop Treatment: 06/01/18 - Additional Information Venous Access: PICC Line Additional Instructions: [x] Peripheral flush and dressing changes per protocol [x] Implanted port and central roll line operator: * Implanted port: 10 ml Normal Saline followed by 5 ml Heparin 100 units/ml Heparin flush after each use and monthly to maintain. [] May leave port accessed during therapy. [] May leave peripheral site accessed for duration of therapy. [x] If patient has SOB or respiratory distress, check oxygen saturation. If less than 90% or clinical signs of respiratory distress, administer oxygen at 2 L/min. via nasal cannula and notify physician. [x] Anaphylaxis/Reaction orders: * Stop infusion. * Keep IV line open with saline flush. * Notify physician. * Monitor vital signs every 15 minutes until symptoms resolve. * Check Oxygen saturation; Oxygen at 2 L/min. via nasal cannula if less than 90% or clinical signs of respiratory distress. * Administer diphenhydramine (Benadryl) 25 mg IV STAT, (unless patient has received as pre-med). May repeat once, if necessary. * Solu-Cortef 250 mg IVP over 30-60 seconds, use 100 mg vials for each dissolution. * Epinephrine (1mg/1 ml) 0.3 mg subcutaneously or IVP now with any signs of respiratory distress. * Check with physician for new additional pre-med orders if patient is re- challenged or re-treated. [x] May remove PICC line when treatment complete, after confirming with Physician. [x] If the patient is admitted to the hospital, the ED, or transferred via [facility] , complete transfer form including medication reconciliation order sheet. Weekly Labs: BMP, CBC w/diff, CRP, SED Rate, Vancomycin Trough Allergies No Known Allergies Allergy (Verified 04/16/18 10:17)
[2018-04-19] MEDS ORDERED: Vancomycin Consult Pharmacy 1 EACH OTHER SCH (16:00)
[2018-04-19] MEDS ORDERED: Vancomycin Inj 1 GM/200 ML PIGGYBACK IV.SIG SCH (20:00)
[2018-04-19] MEDS: Vancomycin Inj 1,250 MG in Sodium Chlor 0.9% Inj 250 ML IV.SIG SCH (21:48)
[2018-04-20] MEDS: oxyCODONE/Acetaminophen 10/325 Tablet PO PRN ×5 (03:59→21:56)
--- NOTE | 2018-04-20 07:17 | P.PNOP ---
Subjective Interval history: POD 1 s/p I&D with removal of HW and Abx spacer placement left ankle doing well. pain controlled. no new complaints. Physical Exam Vital signs: Vital Signs 04/19/18 08:46 04/19/18 09:00 04/19/18 09:15 Temperature 97.5 F L Pulse Rate 81 75 85 Respiratory Rate 20 19 19 Blood Pressure 129/83 149/97 H 173/107 H Pulse Oximetry 96 97 98 04/19/18 09:30 04/19/18 09:45 04/19/18 09:57 Temperature 97.7 F Pulse Rate 74 77 70 Respiratory Rate 16 15 14 Blood Pressure 148/102 H 140/90 142/91 H Pulse Oximetry 98 96 98 04/19/18 12:00 04/19/18 16:00 04/19/18 20:00 Temperature 98.2 F 97.2 F L 97.3 F L Pulse Rate 83 84 96 H Respiratory Rate 17 17 18 Blood Pressure 120/71 121/78 123/75 Pulse Oximetry 98 97 96 Intake & Output 04/19/18 04/20/18 04/20/18 18:59 06:59 18:59 Intake Total 2450 / 2450 262.5 / 262.5 Output Total 1235 / 1235 1600 / 1600 Balance 1215 / 1215 -1337.5 / -1337.5 Weight 70.5 kg Intake: IV 1300 / 1300 262.5 / 262.5 LR 1000 mL Inj 1,000 ML @ 30 1000 / 1000 mls/hr IV.SIG .Q24H [facility] Rx#: [id number] Vancomycin Inj 1,000 MG In NS 250 / 250 Inj 250 ML @ 250 mls/hr 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 intact .NVI Results - Labs CBC & Chem 7: 08/06/18 06:20 Laboratory Results - last 24 hr 04/19/18 06:20 ESR 12 Microbiology 04/19/18 07:40 Tissue - Other Fungal Smear - Final No fungal elements seen 04/19/18 07:40 Wound - Leg Fungal Smear - Final No fungal elements seen 04/19/18 07:40 Tissue - Other Gram Stain - Final 04/19/18 07:40 Wound - Leg Gram Stain - Final - Imaging Impressions Ankle X-Ray 04/19/18 00:00 CONCLUSION: Interval removal of distal tibial and fibular hardware as described above. Ankle mortise appears symmetric on the single image provided. Assessment and Plan - Assessment and Plan 1) Left Distal Tibia/Fibula Fx s/p HW infection with removal of HW and Abx spacer placement - POD 1 -elevate -maintain splint at all times -NWB -Infx Dz to manage Abx based off cultures -will likely need 6 weeks of IV Abx -will plan for DC home once Abx arranged -f/u with [facility] or [facility] in 2 weeks
[2018-04-20] MEDS: Vancomycin Inj 1,250 MG in Sodium Chlor 0.9% Inj 250 ML IV.SIG SCH ×2 (08:53→21:20)
[2018-04-20] MEDS: Calcium/Vitamin D 250/125 MG Tablet PO SCH ×3 (08:53→17:56)
[2018-04-20] MEDS: Multivitamin/Minerals Therapeutic Tablet PO SCH (08:54)
[2018-04-20] MEDS: Senna/Docusate Sodium 8.6/50 MG Tablet PO SCH ×2 (08:54→21:21)
[2018-04-20 10:04] LABS: Glomerular Filtration Rate Greater Than 89 mL/min (>89)
[2018-04-20] MEDS ORDERED: Heparin Central Flush 100 UNIT/ML 5 ML Vial IV.FLUSH PRN (12:26)
--- NOTE | 2018-04-20 15:57 | P.PNID ---
Subjective Remarks: doing O afenbrile NO new complaints MRSA is growing in 2 clx Antibiotics: vanco Allergies/Adverse Reactions: Allergies No Known Allergies Allergy (Verified 04/16/18 10:17) Objective Vital Signs 04/19/18 16:00 04/19/18 20:00 04/20/18 08:00 Temperature 97.2 F L 97.3 F L Pulse Rate 84 96 H 82 Respiratory Rate 17 18 18 Blood Pressure 121/78 123/75 128/80 Pulse Oximetry 97 96 95 04/20/18 12:00 Temperature 97.8 F Pulse Rate 120 H Respiratory Rate 20 Blood Pressure 127/93 H Pulse Oximetry 96 Intake & Output 04/19/18 04/20/18 04/20/18 18:59 06:59 18:59 Intake Total 2450 / 2450 1262.5 / 1262.5 0 / 0 Output Total 1235 / 1235 1600 / 1600 Balance 1215 / 1215 -337.5 / -337.5 0 / 0 Weight 70.5 kg Intake: IV 1300 / 1300 1262.5 / 1262.5 LR 1000 mL Inj 1,000 ML @ 80 1000 / 1000 mls/hr IV.CONT .[id number] [facility] Rx# :[id number] LR 1000 mL Inj 1,000 ML @ 30 1000 / 1000 mls/hr IV.SIG .Q24H [facility] Rx#: [id number] Vancomycin Inj 1,000 MG In NS 250 / 250 Inj 250 ML @ 250 mls/hr IV.SIG [employer] [facility] Rx#:[id number] Vancomycin Inj 1,250 MG In NS 262.5 / 262.5 Inj 250 ML @ 200 mls/hr IV.SIG Q12H [facility] Rx#:[id number] Ancef 2 GM Premix Inj 2 gm In 50 / 50 50 ml @ 0 mls/hr IV.SIG .STK- [facility] Rx#:[id number] Oral 1000 / 1000 Anesthesia Amount 150 / 150 Other 0 / 0 Output: Urine 1200 / 1200 1600 / 1600 Estimated Blood Loss 35 / 35 Other: Date of Last Bowel Movement 04/19/18 # Bowel Movements 0 04/19/18 07:40 Tissue - Other Gram Stain - Final 04/19/18 07:40 Tissue - Other Wound Culture - Preliminary S. aureus MRSA 04/19/18 07:40 Tissue - Other Gram Stain - Final 04/19/18 07:40 Tissue - Other Wound Culture - Preliminary S. aureus MRSA 04/19/18 07:40 Tissue - Other Gram Stain - Final 04/19/18 07:40 Tissue - Other Wound Culture - Preliminary No growth in 24 hours 04/19/18 07:40 Wound - Leg Gram Stain - Final 04/19/18 07:40 Wound - Leg Wound Culture - Preliminary No growth in 24 hours 04/19/18 07:40 Tissue - Other Acid Fast Bacilli Smear - Final No acid fast bacilli seen 04/19/18 07:40 Tissue - Other Mycobacterial Culture - Pending 04/19/18 07:40 Tissue - Other Acid Fast Bacilli Smear - Final No acid fast bacilli seen 04/19/18 07:40 Tissue - Other Mycobacterial Culture - Pending 04/19/18 07:40 Tissue - Other Acid Fast Bacilli Smear - Final No acid fast bacilli seen 04/19/18 07:40 Tissue - Other Mycobacterial Culture - Pending 04/19/18 07:40 Wound - Leg Acid Fast Bacilli Smear - Final No acid fast bacilli seen 04/19/18 07:40 Wound - Leg Mycobacterial Culture - Pending 04/19/18 07:40 Tissue - Other Fungal Smear - Final No fungal elements seen 04/19/18 07:40 Tissue - Other Fungal Culture - Pending 04/19/18 07:40 Tissue - Other Fungal Smear - Final No fungal elements seen 04/19/18 07:40 Tissue - Other Fungal Culture - Pending 04/19/18 07:40 Tissue - Other Fungal Smear - Final No fungal elements seen 04/19/18 07:40 Tissue - Other Fungal Culture - Pending 04/19/18 07:40 Wound - Leg Fungal Smear - Final No fungal elements seen 04/19/18 07:40 Wound - Leg Fungal Culture - Pending Lab - Hematology Results 04/19/18 04/19/18 06:20 06:20 WBC 12.8 H RBC 4.75 Hgb 14.6 Hct 41.5 MCV 87.4 MCH 30.6 MCHC 35.0 RDW 13.4 Plt Count 332 MPV 7.5 Neut % (Auto) 61.8 Lymph % (Auto) 25.8 Webster % (Auto) 8.4 H Eos % (Auto) 3.5 Baso % (Auto) 0.5 Neut # (Auto) 7.9 H Lymph # (Auto) 3.3 [place] # (Auto) 1.1 H Eos # (Auto) 0.5 H Baso # (Auto) 0.1 WBC Differential . Differential Comment Auto diff final ESR 12 Lab - Chemistry Results 04/19/18 04/20/18 06:20 07:50 Creatinine 0.93 Estimated GFR Greater than 89 C-Reactive Protein 1.84 H Imaging: ITS Impressions Ankle X-Ray 04/19/18 00:00 CONCLUSION: Interval removal of distal tibial and fibular hardware as described above. Ankle mortise appears symmetric on the single image provided. Physical Exam: GENERAL: NAD SKIN: Warm and dry. MUSCULOSKELETAL: No cyanosis, or edema. dressing, splintn in place toes appear well perfused PICC in place RUE Assessment and Plan (1) Osteomyelitis of left fibula Status: Acute Code(s): M86.9 - Osteomyelitis, unspecified (2) Osteomyelitis of left tibia Status: Acute Code(s): M86.9 - Osteomyelitis, unspecified - Plan L tib fib open fracture sp ORIF Hardware infection , chronic, MRSA sp removal of hardware vancomycin IV with target throuigh of 15-20 anticipate 6 weeks of IV abx, followed by oral if needed OPAT PICC OK to dc OK to move next vanco dose to 6 pm with rough prior
[2018-04-20] MEDS ORDERED: Pharmacy Ordered Lab Info OTHER ONE (19:45)
[2018-04-21] MEDS: oxyCODONE/Acetaminophen 10/325 Tablet PO PRN ×4 (02:18→14:59)
[2018-04-21] MEDS ORDERED: Vancomycin Inj 1,250 MG in Sodium Chlor 0.9% Inj 250 ML IV.SIG ONE ×2 (05:00→15:00)
--- NOTE | 2018-04-21 06:50 | P.PNOP ---
Subjective Interval history: Pain is controlled and doing well Physical Exam Vital signs: Vital Signs 04/20/18 08:00 04/20/18 12:00 04/20/18 16:00 Temperature 97.8 F 97.5 F L Pulse Rate 82 120 H 116 H Respiratory Rate 18 20 17 Blood Pressure 128/80 127/93 H 108/79 Pulse Oximetry 95 96 97 04/20/18 20:00 04/21/18 00:00 Temperature 97.2 F L 98.0 F Pulse Rate 130 H 87 Respiratory Rate 20 18 Blood Pressure 121/90 137/96 H Pulse Oximetry 95 96 Intake & Output 04/20/18 04/20/18 04/21/18 06:59 18:59 06:59 Intake Total 1262.5 / 1262.5 1000 / 1000 262.5 / 262.5 Output Total 1600 / 1600 1478 / 1478 Balance -337.5 / -337.5 1000 / 1000 -1215.5 / -1215.5 Weight 70.5 kg Intake: IV 1262.5 / 1262.5 262.5 / 262.5 LR 1000 mL Inj 1,000 ML @ 80 1000 / 1000 mls/hr IV.CONT .[id number] [facility] Rx# :[id number] Vancomycin Inj 1,250 MG In NS 262.5 / 262.5 262.5 / 262.5 Inj 250 ML @ 200 mls/hr IV.SIG Q12H [facility] Rx#:[id number] Oral 1000 / 1000 Other 0 / 0 Output: Urine 1600 / 1600 1478 / 1478 Other: # Voids 4 Date of Last Bowel Movement 04/19/18 # Bowel Movements 1 Narrative: Left lower extremity: No pain with hip or knee range of motion. Splint intact. Intact sensation distally in all toes good capillary refills Results - Labs CBC & Chem 7: 04/19/18 06:20 04/20/18 07:50 Laboratory Results - last 24 hr 04/20/18 07:50 Creatinine 0.93 Estimated GFR Greater than 89 Microbiology 04/19/18 07:40 Tissue - Other Gram Stain - Final 04/19/18 07:40 Tissue - Other Wound Culture - Preliminary S. aureus MRSA 04/19/18 07:40 Tissue - Other Gram Stain - Final 04/19/18 07:40 Tissue - Other Wound Culture - Preliminary S. aureus MRSA 04/19/18 07:40 Tissue - Other Gram Stain - Final 04/19/18 07:40 Tissue - Other Wound Culture - Preliminary No growth in 24 hours 04/19/18 07:40 Wound - Leg Gram Stain - Final 04/19/18 07:40 Wound - Leg Wound Culture - Preliminary No growth in 24 hours 04/19/18 07:40 Tissue - Other Acid Fast Bacilli Smear - Final No acid fast bacilli seen 04/19/18 07:40 Tissue - Other Acid Fast Bacilli Smear - Final No acid fast bacilli seen 04/19/18 07:40 Tissue - Other Acid Fast Bacilli Smear - Final No acid fast bacilli seen 04/19/18 07:40 Wound - Leg Acid Fast Bacilli Smear - Final No acid fast bacilli seen 04/19/18 07:40 Tissue - Other Fungal Smear - Final No fungal elements seen 04/19/18 07:40 Tissue - Other Fungal Smear - Final No fungal elements seen Assessment and Plan - Assessment and Plan 1) Left Distal Tibia/Fibula Fx s/p HW infection with removal of HW and Abx spacer placement - POD 2 -elevate -maintain splint at all times -NWB -Infx Dz to manage Abx based off cultures -will likely need 6 weeks of IV Abx -will plan for DC home once Abx arranged -f/u with [facility] in 2 weeks
[2018-04-21] MEDS ORDERED: Heparin Central Flush 100 UNIT/ML 5 ML Vial IV.FLUSH SCH (09:00)
[2018-04-21] MEDS: Calcium/Vitamin D 250/125 MG Tablet PO SCH ×3 (10:39→17:22)
[2018-04-21] MEDS: Multivitamin/Minerals Therapeutic Tablet PO SCH (10:40)
[2018-04-21] MEDS: Senna/Docusate Sodium 8.6/50 MG Tablet PO SCH (10:40)
--- NOTE | 2018-04-21 12:36 | P.DCO ---
- Nursing Nursing: Other (PICC line care and medication administration) Dressing changes: Do not change dressing Additional instructions: blood draw for the Vanco trough at next dose - Certification Need for Home Health services: I have seen patient Luis Daniel Batista on 04/21/18. My clinical findings support the need for the requested home health care services because: Need for Home Health Services: Limited mobility due to disease progression Homebound Certification: I certify that my clinical findings support that this patient is homebound because: Homebound Certification: Post-op weakness
[2018-04-21 12:49] VITALS: BP 115/82; PULSE 88; RESP 16; TEMP 97.4; O2SAT 95
== END 2018-04-21 18:00 | disposition home health service (06) ==
LOC: HSDI 04-19 05:33 → N07 04-19 10:04
PROVIDERS: ADMIT Orthopaedic Surgery Orthopaedic Trauma; ATTEND Orthopaedic Surgery Orthopaedic Trauma
PROC: ORIFTIB (2018-04-19 07:03)